=== PATIENT | female | born 1960 | race Caucasian/White ===

== ENCOUNTER 2023-07-20 18:38 | Inpatient (IN) | payer OTHER, SELFPAY ==
[2023-07-20] VITALS (8 sets, daily range): BP systolic 156–194; BP diastolic 70–97; BMI 21.5; BMI 20.9
[2023-07-20 13:57] LABS: % Basophils 0.4 % (0-2); % Eosinophils 0.1 % (0-6); % Immature Granulocytes 0.3 % (0-0.5); % Lymphocytes 9.1 % (20.5-51.1); % Monocytes 1.2 % (1.7-9.3); % Neutrophils 88.9 % (42.2-75.2); Absolute Monocytes 0.1 10^3/uL (0.1-0.6); Absolute Neutrophils 9.9 10^3/uL (1.4-6.5); Hematocrit 38.5 % (37.0-47.0); Hemoglobin 13.3 g/dL (12.0-16.0); Mean Corp Hgb Conc. 34.5 g/dL (33.0-37.0); Mean Corpuscular Hgb 30.3 pg (27.0-31.0); Mean Corpuscular Volume 87.7 fL (81.0-99.0); Mean Platelet Volume 11.4 fL (7.4-10.4); Nucleated Red Blood Cells % 0 %; Platelet Count 226 10^3/uL (130-400); Red Blood Cell Count 4.39 10^6/uL (4.20-5.40); Red Cell Dist. Width 11.8 % (11.5-14.5); White Blood Cell Count 11.2 10^3/uL (4.8-10.8)
--- NOTE | 2023-07-20 14:09 | ED.GENMED ---
History of Present Illness
General
Chief Complaint: Abdominal Pain
Source: patient and family
Time Seen by Provider: 07/20/23 13:57
Travel History
Have you had any contact with someone who has COVID-19?: No
Do you have any symptoms of coronavirus? Fever > 100 degrees, chills, cough, shortness of breath, sore throat, loss of taste or smell, muscle aches, or headache?: No
History of Present Illness
History of Present Illness:
62-year-old female with past medical history of hypertension, hypothyroidism, bipolar disorder and anxiety presenting to the emergency department for evaluation with EMS for abdominal pain, persistent nausea and vomiting that all started yesterday.
Sister who is present with the patient states that yesterday patient had been having persistent nausea and vomiting as well but that in the evening time symptoms seem to have subsided. Upon calling her this morning the patient noted to his sister
that she barely slept overnight due to the persistent nausea and had resumed vomiting again. Due to the symptoms the patient's sister contacted EMS to bring to the ER. On arrival here patient is still noting the persistent nausea and vomiting but
is otherwise denying any other pain. No reported fevers, chills, rigors, known sick contacts, recent travel or recent antibiotics. Patient denies any alcohol or drug abuse (history of previous drug abuse noted) family history was otherwise
noncontributory.
Past History
Past History
ED Past Medical History: HTN, Hypothyroidism, Psychiatric (anxiety) and Other (urinary incontinence)
ED Past Surgical History: Cholecystectomy; Negative Cardiac
Social History
Tobacco: Non-smoker
Alcohol: None
Drug: None
Personal: Single
Living: alone (family near by that can help)
Employment: Employed
Family History
Family History: Other (Noncontributory)
Review of Systems
Review of Systems
All Other Systems: ROS reviewed and negative except as documented in HPI and ROS
Phy Exam
Physical Exam
Physical Exam:
GENERAL: Alert , laying comfortably on initial presentation however upon speaking to patient she would start to moan and cry but was easily redirectable
EYE: clear conjunctiva b/l
HEAD: NCAT
ENT: o/p clr, mmm.
CARDIAC: Regular rate and rhythm .
LUNGS: Clear breath sounds bilaterally, no acute respiratory distress, no wheezes/rales/rhonchi
ABDOMEN: Soft, without focal tenderness, no r/g, no cvat
NEUROLOGICAL: Alert and oriented to self and place but not year
SKIN: Warm and dry, skin intact. Older appearing ecchymosis to the left forearm which patient is unable to tell me as to how he obtained this
MUSCULOSKELETAL: No edema, well perfused.
PSYCH: Odd affect, answers most questions appropriately
Scores
Heart Failure Risk
Heart Failure Risk Score: Not Applicable
Heart Score for Chest Pain Patients
STEMI patient?: Not applicable
Withdrawal Assessment of Alcohol
Withdrawal Assessment Completed?: Not applicable
Course
Orders/Labs/Results
Orders:
Orders
07/20/23 13:05
Electrocardiogram (*1) Urgent
Reason for Study: Abdominal Pain
07/20/23 13:06
EKG- Treatment ONCE
07/20/23 13:11
Complete Blood Count/With Diff Urgent
Comprehensive Metabolic Panel Urgent
Glycohemoglobin (HgbA1c) Urgent
Lipase Urgent
Magnesium Urgent
07/20/23 14:04
CT Head W/o Iv Contrast Urgent
Comment:
Reason For Exam: vomiting, change in mental status
0.9% Sodium Chloride 1000 ml [Nss] 1,000 ml IV BOLUS
Ondansetron Injectable [Zofran] 4 mg IV NOW STA
07/20/23 14:14
Alcohol Urgent
Troponin I Urgent
07/20/23 Dinner
Clear Liquid
At Your Request: Full Participation
Does patient need a safe tray?: No
07/20/23 16:27
Troponin I Urgent
07/20/23 17:07
Electrocardiogram (*1) Urgent
Reason for Study: Other
Other Reason for Exam: elevated trop
EKG- Treatment ONCE
07/20/23 17:09
Potassium Chloride [KCl] 20 meq PO NOW STA
07/20/23 17:11
Ondansetron Injectable [Zofran] 4 mg IV NOW STA
Trimethobenzamide [Tigan] 200 mg IM NOW STA
07/20/23 17:23
CR Abdomen - 1 View Urgent
Comment:
Reason For Exam: vomiting
07/20/23 17:50
Aspirin 300 mg RECTAL NOW STA
07/20/23 18:04
Fentanyl, Urine Urgent
Urinalysis Reflex To Culture Urgent
Date Specimen was Collected: 07/20/23
Time Specimen was Collected: 18:03
Urine Drug Abuse Screen Urgent
Date Specimen was Collected: 07/20/23
Time Specimen was Collected: 18:03
Urine Microscopic Reflex Cult Urgent
07/20/23 18:16
Admit/Transfer Patient As Directed
Co-Sign Provider:
Level of Care: Inpatient admission
Assign to:: Telemetry
Physician / Group: Hospitalist
Diagnosis: Elevated troponin, vomiting
Reason for Telemetry: Chest Pain syndromes
Date to Stop Telemetry: 07/22/23
Time to Stop Telemetry: 11:00
Reason for Hospitalization: Elevated troponin, vomiting
Expected length of stay greater than two midnights?: Yes
ELOS- Estimated Length of Stay in days: 3
I certify the patient meets the requirements for IP care: Yes
07/20/23 18:17
Code Status As Directed
Resuscitation Status: Full Code
07/20/23 21:54
0.9% Sodium Chloride 1000 ml [Nss] 1,000 ml IV 125 mls/hr
Potassium Chloride Powder [Klor-Con] 20 meq PO BID
07/20/23 21:54
Activity As Directed
Activity Level: As Tolerated
INT (Intravenous Needle Therapy) As Directed
Comment: maintain peripheral IV access
Intake/ Output As Directed
Frequency: Per unit guidelines
Pneumatic Compression Sleeves As Directed
Type: Knee high
Vital Signs As Directed
Frequency: q4h
Weight As Directed
Frequency: Daily
DX Deep Vein Thrombosis Video Routine
07/20/23 23:38
Troponin I Q3H
Comment: at admit & Q3H for 3 total including ED draws, obtain ECG with each level
07/21/23 00:54
Troponin I Q3H
Comment: at admit & Q3H for 3 total including ED draws, obtain ECG with each level
07/21/23 03:54
Electrocardiogram (*1) Q6H
Reason for Study: Chest Pain
Comment: at admission and Q3H for total of 3, to be done with each troponin
07/21/23 04:23
Basic Metabolic Panel IN AM
Complete Blood Count/No Diff IN AM
Magnesium IN AM
Troponin I Q3H
Comment: at admit & Q3H for 3 total including ED draws, obtain ECG with each level
07/21/23 09:54
Electrocardiogram (*1) Q6H
Reason for Study: Chest Pain
Comment: at admission and Q3H for total of 3, to be done with each troponin
07/22/23 11:00
DC Protocol for Telemetry ONCE
Abnormal Lab Results
07/20/23 07/20/23 07/20/23
13:11 16:27 18:04
WBC 11.2 H 10^3/uL
(4.8-10.8)
MPV 11.4 H fL
(7.4-10.4)
Absolute Neuts (auto) 9.9 H 10^3/uL
(1.4-6.5)
Absolute Lymphs (auto) 1.0 L 10^3/uL
(1.2-3.4)
Neutrophils % 88.9 H %
(42.2-75.2)
Lymphocytes % 9.1 L %
(20.5-51.1)
Monocytes % 1.2 L %
(1.7-9.3)
Potassium 3.3 L mmol/L
(3.5-5.1)
Glucose 119 H mg/dl
(70-99)
Magnesium 1.3 L mg/dl
(1.6-2.3)
AST 42 H U/L
(14-36)
Troponin I 0.041 H* ng/ml
Urine Ketones 3+ A
(Negative)
Ur Occult Blood Reflex Trace A
(Negative)
Leukocyte Esterase Rfl Trace A
(Negative)
Urine Albumin (Reflex) 2+ A
(Neg - Trace)
Urine Methadone Screen Positive H
(Negative)
U Marijuana (THC) Screen Positive H
(Negative)
07/20/23 13:11
07/20/23 13:11
Vital Signs
Initial and Last Documented VS:
Initial Vital Signs
Temp Pulse Resp BP Pulse Ox
99.0 F 70 21 194/82 95
07/20/23 12:57 07/20/23 12:57 07/20/23 12:57 07/20/23 12:57 07/20/23 12:57
Last Documented Vital Signs
Temp Pulse Resp BP Pulse Ox
99.9 F 92 22 220/99 95
07/21/23 07:54 07/21/23 08:15 07/21/23 07:54 07/21/23 07:59 07/21/23 07:56
MDM/Problems Addressed
Differential Diagnosis Includes:
Gastroenteritis, GERD/gastritis, viral syndrome, given odd behavior possible intracranial bleeding although this is less likely, atypical ACS presentation, alcohol/drug abuse/withdrawal
MDM/Problems Addressed:
62-year-old female presenting to the emergency department for evaluation of persistent nausea and vomiting over the last 24 hours. Sister who is at bedside is stating patient's behavior is very abnormal for her and notes that she does seem
intermittently confused and is normally not acting as she is presently. Patient does seem to have a slightly histrionic affect at times but is easily redirectable. She will intermittently cry out but it is unclear as to what she is ultimately
either upset over or if she is in any pain. Labs have been initiated in triage and will add on additional tests including troponin, alcohol, urinalysis, UDS and a CT of the head. Zofran 4 mg IV ordered for symptomatic control. Reassessment and
disposition following.
Chronic conditions affecting care: Psychiatric illness
*Radiology
Radiology exam reviewed: radiology read reviewed
*Pulse Oximetry
Patient hypoxic: no
*EKG
Interpreted by ED Provider?: Yes
Comparison EKG: no comparison EKG present
Heart Rate: 76
Rate: normal
Rhythm: sinus and PVC's
Interval: long QT
*[employer] Interpretation
Rate: normal
Rhythm: sinus and PVC's
*Critical Care Note
Total Time (30-74mins, 75-104mins- exclusive of procedures): Not Applicable
Comment
Comment:
On reevaluations patient is continuously sleeping. When she is awoken she has various complaints including sensation of her eyes burning and still generally feeling unwell. Given the patient's nonnegative troponin we are repeating this. Will also
attempt a p.o. trial. Patient's other labs and imaging is otherwise largely unremarkable.
Patient Management
Discussion with other providers: Hospitalist
Escalation/DeEscalation of care consider admission/obs:
Patient's repeat troponin is upward trending and now 0.041. I went to go reevaluate patient and she started having further episodes of vomitus. Second EKG ordered. Despite her borderline prolonged QT interval we will treat with a second dose of
Zofran. Will closely monitor patient's QT and keep her on telemetry. Hospitalist team is aware and accepts for continued evaluation and treatment.
ED Attending Note
-
Portions of this chart may have been created with voice recognition software.� Occasional wrong word or��sound alike� substitutions may have occurred due to the inherent limitations of voice recognition software.
Discharge Plan
Departure
Patient Disposition: Admit
Date of Disposition: 07/20/23
Time of Disposition: 17:09
Presentation/result/management discussed w/ accepting MD/DO: Hospitalist
Discharge Problem:
Nausea and vomiting, Elevated troponin, Acute hypokalemia
Interventions
Interventions:
*Risk Screen - Suicide Last Done: 07/20/23 13:14
*General Assessment Last Done: 07/20/23 13:08
*Neglect/Abuse Screening Last Done: 07/20/23 13:14
ED- Fall Risk Assessment Last Done: 07/20/23 13:09
*ED COVID-19 Vaccine History Last Done: 07/20/23 21:55
*Nursing Disposition Last Done: 07/20/23 21:46
WI-Urexyw-Cyxpfhxzqd Assessment Last Done: 07/20/23 13:09
Discharge Date and Time
Discharge Date/Time: 07/20/23 21:47
[2023-07-20 14:12] LABS: ALT (SGPT) 16 U/L (0-35); AST (SGOT) 42 U/L (14-36); Albumin 4.6 g/dl (3.5-5.0); Alkaline Phosphatase 99 U/L (38-126); Blood Urea Nitrogen 15 mg/dl (7-17); Calcium 9.5 mg/dl (8.4-10.2); Carbon Dioxide 25 mmol/L (22-30); Chloride 98 mmol/L (98-107); Estimated Creatinine Clearance 77 ml/min; Glucose 119 mg/dl (70-99); Sodium 136 mmol/L (135-145); Total Bilirubin 0.5 mg/dl (0.2-1.3); Total Protein 7.6 g/dl (6.3-8.2); eGFR > 60.00
[2023-07-20] MEDS: NSS 1000 IV ×2 (14:19→22:59)
[2023-07-20] MEDS: ZOFRAN 4 MG IV ×3 (14:19→23:20)
[2023-07-20 14:25] LABS: Lipase 154 U/L (23-300); Potassium 3.3 mmol/L (3.5-5.1)
[2023-07-20 14:53] LABS: Alcohol None Detected
[2023-07-20 15:04] LABS: Troponin I 0.033 ng/ml
[2023-07-20 17:06] LABS: Troponin I 0.041 ng/ml
[2023-07-20] MEDS: KCL 20 MEQ PO (17:49)
[2023-07-20] MEDS: TIGAN 200 MG IM (17:50)
--- NOTE | 2023-07-20 18:01 | HPS.HSE ---
Family Physician
-
Family Physician: Aguila Mckeon
Chief Complaint
-
Nausea and vomiting
History of Present Illness
62-year-old woman with past medical history of:
hypertension,
hypothyroidism,
bipolar disorder
anxiety
comes in with abdominal pain, persistent nausea and vomiting that started yesterday. Sister reports that yesterday the patient had been having persistent nausea and vomiting as well but that in the evening the symptoms improved. The patient barely
slept overnight due to the persistent nausea and had resumed vomiting again today. Sister contacted EMS to bring patient to the ER. On arrival here patient reports the persistent nausea and vomiting but is otherwise denying any other pain. No
reported fevers, chills, rigors, known sick contacts, recent travel or recent antibiotics. Patient denies any alcohol or drug abuse. ER found elevated troponin. ECG abnormal.
Medical History
Past Medical History
Past Medical History: Reports Other
Additional Past Medical History:
Essential HTN,
Hypothyroidism,
anxiety
Bipolar disorder
urinary incontinence
Cholecystectomy
Past Surgical History: Reports Other
Additional Past Surgical History:
See above
Social History
Unable to obtain full social history at this time due to: Acuity
Alcohol: None
Drug: None
Personal: Single
Living: Alone
Family History
Family History: Not pertinent
Allergies / Home Medications
Allergies reflects when Allergies were last updated in [facility].
Home Medications with original date entered in [facility]
Allergy/Medication List:
Allergies
Allergy/AdvReac Type Severity Reaction Status Date / Time
NKA - No Known Allergies Allergy Unknown Uncoded 07/20/23 12:56
Home Medications (this list may not be accurate)
aluminum-mag hydroxide-simethicone 200 mg-200 mg-20 mg/5 mL oral susp (Mag-Al Plus) 30 ml PO QIDPRN PRN painful swallowing ##10 01/18/17
oxycodone-acetaminophen 5 mg-325 mg tablet 1 tab PO Q4HPRN PRN Pain #15 tabs 10/02/16
hydrocodone 5 mg-acetaminophen 325 mg tablet 1 tab PO Q4HPRN PRN pain #10 tabs 05/25/20
tramadol 50 mg tablet 50 mg PO Q6HPRN PRN severe pain #8 tabs 03/04/21
Review of Systems
-
History Source: Patient
A 12 point ROS was completed and negative except as noted: Yes
Physical Exam
Vital Signs
Vital Signs
Temp Pulse Resp BP Pulse Ox
99.0 F 71 16 157/82 98
07/20/23 12:57 07/20/23 17:00 07/20/23 17:00 07/20/23 17:00 07/20/23 15:38
Physical Exam
General: Well Developed, Well Nourished, Appears in Distress and Appears Chronically Ill
HEENT: Nose Appears Normal and Ears Appear Normal; No Good Dentition
Respiratory: Clear
Cardiac: S1/S2 and Regular Rhythm
GI: Soft, Non Distended and Tender
Musculoskeletal: No Clubbing, No Cyanosis and No Edema
Skin: Warm and Dry; No Rash
Neuro: Awake, Alert and Oriented
Psych: Anxious
Laboratory Results
-
07/20/23 13:11
07/20/23 13:11
Laboratory Results
Total Bilirubin 0.5 mg/dl (0.2-1.3) 07/20/23 13:11
AST 42 U/L (14-36) H 07/20/23 13:11
ALT 16 U/L (0-35) 07/20/23 13:11
Alkaline Phosphatase 99 U/L (38-126) 07/20/23 13:11
Troponin I 0.041 ng/ml H* 07/20/23 16:27
Lipase 154 U/L (23-300) 07/20/23 13:11
Data Reviewed
-
Lab Data: Labs Reviewed by me
Impression/Plan
-
IMPRESSION:
62 woman with nausea, vomiting, and elevated troponin (0.41). ECG shows:
SINUS RHYTHM WITH FREQUENT PREMATURE VENTRICULAR COMPLEXES IN A PATTERN OF BIGEMINY
MINIMAL VOLTAGE CRITERIA FOR LVH, MAY BE NORMAL VARIANT ( Sokolow-Lujan )
NONSPECIFIC ST AND T WAVE ABNORMALITY
PROLONGED QT
ABNORMAL ECG
WHEN COMPARED WITH ECG OF 05-MAR-2001 07:59, SIGNIFICANT CHANGES HAVE OCCURRED
PLAN:
1. Elevated troponin with abnormal ECG. No chest pain. Vitals WNL
This may be from stress of illness, less likely to be ACS
ASA in ED
Tele
Cycle troponin
Cardiology consult if troponin continues to go up
2. Low K, likely from GI loss
Replete K
Check mag
Recheck both in am
3. Elevated WBC, 11.2 - likely from whatever is causing GI process
Follow
No indication for antibiotics at this time
4. Nausea and vomiting - may be viral
Check abd xr
Clear liquid diet - then advance as tolerated
Do med rec before adding zofran
5. Med list not available - work on getting med list
Full code
VCD for DVTp
[2023-07-20 18:20] LABS: Urine Albumin 2+ (Neg - Trace); Urine Bilirubin Negative (Negative); Urine Character Clear (Clear); Urine Color Straw; Urine Glucose Negative (Negative); Urine Ketone 3+ (Negative); Urine Leukocyte Trace (Negative); Urine Nitrite Negative (Negative); Urine Occult Blood Trace (Negative); Urine Specific Gravity 1.015 (<1.030); Urine Urobilinogen Negative (Neg - 1+)
[2023-07-20 18:32] LABS: Urine Red Blood Cell 0-2 /HPF (0-2); Urine White Cell 0-2 /HPF (0-5)
[2023-07-20 18:34] LABS: Amphetamines Negative (Negative); Barbiturates Negative (Negative); Benzodiazepines Negative (Negative); Buprenorphine Negative (Negative); Cocaine Negative (Negative); Methadone Positive (Negative); Methamphetamines Negative (Negative); Opiates Negative (Negative)
[2023-07-20] MEDS: ASPIRIN 300 MG RECTAL (18:34)
[2023-07-20 18:35] LABS: Marijuana Positive (Negative); Phencyclidine Negative (Negative); Tricyclic Antidepressants Negative (Negative)
--- NOTE | 2023-07-20 18:56 | PHANOTE ---
med rec note called sister on file, patient not answer question at this time. sister did mention patient goes to a methadone clinic but does not know the name of it. ecw show patient on methadone 10mg q8h but no pdmp record of it being filled.
medication on list from pharmacy only. waiting sister arrival
[2023-07-20 19:09] LABS: Fentanyl, Urine Negative (Negative)
--- NOTE | 2023-07-20 22:26 | PTCARENOTE ---
Received patient from the ED. Patient restless, impulsive, yelling out periodically, 'help me'. She leaned out of bed and vomited on the floor. She is AO x3, anxious, unkempt, pale. Placed on telemetry NSR. IVF started. Abdomen is soft and
non-tender. Bed alarm placed because she states she falls at home and is unsteady on her feet. Lights dimmed, call alcocer in reach
[2023-07-20 22:33] LABS: Magnesium 1.3 mg/dl (1.6-2.3)
[2023-07-20] MEDS: MAGNESIUM SULFATE 100 IV (23:19)
[2023-07-20] MEDS: KLOR-CON 20 MEQ PO (23:25)
--- NOTE | 2023-07-21 00:12 | PTCARENOTE ---
Patient more comfortable at rest. Zofran given. IV magnesium replaced. Voided in the bathroom earlier assisted. Temperature 100.6 orally, refused Tylenol. Bed alarm is audible, call alcocer in reach
[2023-07-21 00:30] LABS: Troponin I 0.052 ng/ml
[2023-07-21] MEDS: XANAX 0.25 MG PO (00:56)
--- NOTE | 2023-07-21 01:01 | PTCARENOTE ---
Patient yelling out, leaning out of the bed. 'I just want it to stop', very anxious. Order received for Xanax, given.
[2023-07-21] MEDS: NSS 1000 IV ×2 (04:06→17:32)
[2023-07-21] MEDS: BENTYL 20 MG PO (04:11)
--- NOTE | 2023-07-21 04:27 | PTCARENOTE ---
Patient uncooperative with vitals. Thrashing herself in bed, moaning, yelling out 'OH god help me'. Complaining of abdominal cramping and nausea, dry heaving with some occasional yellow mucous. Assisted to the bathroom to void and Bentyl given. Was
able to collected labs and now appears to be sleeping.
[2023-07-21 04:39] LABS: Hemoglobin 12.7 g/dL (12.0-16.0); Mean Corp Hgb Conc. 35.3 g/dL (33.0-37.0); Mean Corpuscular Hgb 30.1 pg (27.0-31.0); Mean Corpuscular Volume 85.3 fL (81.0-99.0); Mean Platelet Volume 10.9 fL (7.4-10.4); Platelet Count 214 10^3/uL (130-400); Red Blood Cell Count 4.22 10^6/uL (4.20-5.40); Red Cell Dist. Width 11.9 % (11.5-14.5); White Blood Cell Count 9.2 10^3/uL (4.8-10.8)
[2023-07-21 05:05] LABS: Blood Urea Nitrogen 18 mg/dl (7-17); Calcium 9.7 mg/dl (8.4-10.2); Carbon Dioxide 21 mmol/L (22-30); Chloride 98 mmol/L (98-107); Estimated Creatinine Clearance 77 ml/min; Glucose 121 mg/dl (70-99); Magnesium 1.8 mg/dl (1.6-2.3); Potassium 3.2 mmol/L (3.5-5.1); Sodium 136 mmol/L (135-145); eGFR > 60.00
[2023-07-21 05:06] LABS: Troponin I 0.056 ng/ml
[2023-07-21 06:18] VITALS: BP 169/72
[2023-07-21] MEDS: ZOFRAN 4 MG IV (06:41)
--- NOTE | 2023-07-21 06:43 | W.PN.UPDATE ---
Update Note
Progress Note Update
Patient noted overnight to be somewhat agitated...thrashing around in bed. Ongoing c/o abdominal pain. She has hx of IBS and also bipolar disorder hx plus takes methadone. Will ask psychiatry to evaluate.
[2023-07-21 07:59] VITALS: BP 220/99
[2023-07-21 08:46] LABS: Glycohemoglobin (HgbA1c) 4.9 % (4.0-5.6)
[2023-07-21] MEDS: KLOR-CON PO (09:08)
--- NOTE | 2023-07-21 09:23 | PTCARENOTE ---
Assumed care of pt from night RN. Pt received awake oriented to self and place. VSS, AARON shows NSR with vent bigeminy, POX 95% on RA. Pt yelling out 'Help me, help me', but when asked what I can help with she asks for water. Frequently hanging
over side rail spitting into trash can. Bed alarm in place. NS infusing through right wrist at 125 ml/hr. Awaiting psych CX.
[2023-07-21 10:39] VITALS: BMI 20.9
--- NOTE | 2023-07-21 10:55 | CON.CAR ---
Addendum entered and electronically signed by Jerrell Jacobson MD 07/21/23 12:23:
62-year-old woman with history of opioid dependence on methadone admitted with abdominal pain nausea and vomiting. She is on sertraline 200 mg daily. She has received Zofran and has had PVCs with prolongation of her QT interval. Troponin is
detectable at 0.056. She is crying out in pain, calling for help as a result cardiology consultation is requested.
Outpatient meds: Wellbutrin, dicyclomine, gabapentin, Prevacid, Synthroid, lisinopril, methadone, Reglan, sertraline
Current meds: Potassium 40 mill equivalents twice daily, lisinopril 10 mg a day, Zofran as needed, dicyclomine as needed, patient has received 1 g of magnesium
PMH: Hypertension, hypothyroidism, chronic hepatitis C, opioid dependence, bipolar disorder,
PSH: Cholecystectomy
SH: No alcohol or tobacco, former intravenous heroin user, single, lives alone, sister is contact
Allergies: None
Family history: Noncontributory
ROS: Not obtainable due to ongoing distress
220/99, pulse 92, respiratory 22, afebrile, sats 99%
Marked distress, crying out in pain, calling for help, appears much older than stated age
Head and neck: Edentulous over mandible
Cachectic
Exam very limited, lungs grossly clear, predominantly regular rate and rhythm, abdominal exam very limited, no edema, neuro nonfocal, writhing in bed
ECG sinus rhythm, probable marked QT prolongation but difficult to assess given ventricular bigeminy
Telemetry: Marked QT prolongation
Hemoglobin 12.7, potassium 3.2, BUN and creatinine 18 and 0.7, magnesium was 1.3, now 1.8
Impression:
Prolonged QT with PVCs and high risk of torsades de pointes
Hypomagnesemia, hypokalemia, methadone, sertraline, Zofran
Abdominal pain nausea vomiting
Bipolar disorder
Hypertension
Hypothyroidism
Chronic hepatitis C
History of opioid dependence, on methadone
Plan:
She has a markedly prolonged QT interval related to electrolyte abnormalities and 3 different drugs. Methadone ideally would be continued, is currently on hold and it appears that she is withdrawing from narcotics possibly superimposed upon some
underlying abdominal pathology. Zofran and sertraline are likely contributing to QT prolongation.
At present she is at high risk for torsades de pointes pending improvement in her QT interval.
Would ask psychiatry if a non QT prolonging med can be substituted for sertraline.
Avoid Zofran or other antiemetics, as these would mostly prolong QT interval.
Follow QT interval, possibly eventual restart of methadone.
She has received magnesium IV, will give a second IV dose. Potassium is being supplemented.
Her hypertension is likely secondary to her acute illness. We may need to uptitrate her medications. Suspect that as her pain improves and if narcotic withdrawal can be avoided her blood pressure will improve.
Regarding her troponin, would not pursue aggressively at this time. We can consider an echo although at present I am not sure she could cooperate, and outpatient stress testing could also be considered, but suspect right now she has nonischemic
myocardial injury that is multifactorial and related to her clinical presentation.
Original Note:
Consultation
Consultation Request
Date/Time Consultation Requested: 07/21/2023
Date/Time Consultation Performed: 07/21/2023
Requesting Provider: Dr. Barajas
Performing Provider: Dr. Jacobson
Reason for Consultation: Elevated troponin
Medical History
-
History of Present Illness:
HPI: Antoinette is a 62 year old female with PMH of HTN, hypothyroidism, bipolar disorder, chronic hepatitis C, and prior opioid dependence on methadone. She presented to [facility] for evaluation of persistent abdominal pain, nausea, and vomiting. In ER,
she was treated with zofran. She was noted to be febrile with temp of 100.6F. Leukocytosis noted with WBC 11.2. Troponin checked and returned elevated, trending up to 0.056. She was also hypokalemic and started on supplementation. She has ongoing
abdominal pain and nausea. On EKG, she was noted to be in bigeminy. Cardiology consulted due to elevated troponin. She reports no significant cardiac history and is unsure if she has been seen by a allergy physician in the past. Denies any recent
cardiology evaluations.
PMH:
HTN
Hypothyroidism
Bipolar disorder
Chronic Hepatitis C
h/o opioid dependence, on methadone
Past Medical History
Past Medical History: Other (In HPI)
Social History
Tobacco: Non-Smoker
Alcohol: None
Drug: Former User
Family History
Family History: Reviewed & Not Pertinent
Allergies / Home Medications
Allergy/AdvReac Type Severity Reaction Status Date / Time
NKA - No Known Allergies Allergy Unknown Uncoded 07/20/23 12:56
�Medication �Instructions �Recorded �Confirmed �Type
[facility]adone [facility] 345 mg PO DAILY 07/20/23 07/20/23 History
bupropion HCl 300 mg 24 hr tablet, 300 mg PO DAILY 07/20/23 07/20/23 History
extended release (Wellbutrin XL)
dicyclomine 10 mg capsule 20 mg PO QIDPRN PRN spasms 07/20/23 07/20/23 History
gabapentin 400 mg capsule 800 mg PO TID 07/20/23 07/20/23 History
lansoprazole 30 mg capsule,delayed 30 mg PO DAILY 07/20/23 07/20/23 History
release
levothyroxine 75 mcg tablet 75 mcg PO DAILY 07/20/23 07/20/23 History
(Synthroid)
lisinopril 10 mg tablet 10 mg PO DAILY 07/20/23 07/20/23 History
metoclopramide HCl 10 mg tablet 10 mg PO DAILYPRN PRN gerd 07/20/23 07/20/23 History
sertraline 100 mg tablet 200 mg PO DAILY 07/20/23 07/20/23 History
Review of Systems
-
History Source: Patient
All other systems: Negative unless noted
Physical Exam
Vital Signs
Temp Pulse Resp BP Pulse Ox
99.9 F 92 22 220/99 95
07/21/23 07:54 07/21/23 08:15 07/21/23 07:54 07/21/23 07:59 07/21/23 09:17
Lab Results
07/21/23 04:23
07/21/23 04:23
Troponin I 0.056 ng/ml H* 07/21/23 04:23
Physical Exam
General: Well Developed and Well Nourished
HEENT: Normocephalic, Anicteric and Moist Mucous Membranes
Respiratory: Non Labored Respirations
Cardiac: Regular Rhythm
Musculoskeletal: No Clubbing, No Cyanosis and No Edema
Skin: Warm and Dry
Neuro: Awake, Alert and Nonfocal/Grossly Intact
Impression / Plan
-
PCP: Dr. Mckeon
Metabolic Specialist: None, initially seen by Dr. Jacobson
Impression:
Presented with nausea/vomiting
Hypokalemia
Frequent PVC's/bigeminy
Elevated troponin
HTN
Hypothyroidism
Bipolar disorder
Chronic Hepatitis C
h/o opioid dependence, on methadone
Plan:
-Presented with nausea and vomiting. Low grade fever and leukocytosis noted in PM 07/19. Continue management per primary service.
-Hypokalemia noted with K 3.2 in the setting of vomiting. Agree w/ repletion. Mag improved to 1.8 following repletion overnight.
-Continue to follow K and mag closely. Check TSH
-Frequent PVCs noted overnight in the setting of electrolyte disturbance. Improved this AM.
-Follow QTc on EKG closely. Pt. given 4mg IV Zofran x3 so far this admission. Will repeat EKG this AM.
-Agitation noted by nursing overnight. Psych eval pending. Would limit/reduce QT prolonging medications.
-Elevated troponin noted, trending up to 0.056. Suspect nonischemic myocardial injury in the setting of nausea/vomiting and uncontrolled HTN.
-BP elevated by most recent check. On lisinopril 10mg daily as OP. Continue.
-Would consider checking echo once less agitated and once abdominal pain improved.
HPI: Antoinette is a 62 year old female with PMH of HTN, hypothyroidism, bipolar disorder, chronic hepatitis C, and prior opioid dependence on methadone. She presented to [facility] for evaluation of persistent abdominal pain, nausea, and vomiting. In ER,
she was treated with zofran. She was noted to be febrile with temp of 100.6F. Leukocytosis noted with WBC 11.2. Troponin checked and returned elevated, trending up to 0.056. She was also hypokalemic and started on supplementation. She has ongoing
abdominal pain and nausea. On EKG, she was noted to be in bigeminy. Cardiology consulted due to elevated troponin. She reports no significant cardiac history and is unsure if she has been seen by a allergy physician in the past. Denies any recent
cardiology evaluations.
Data Reviewed
-
EKG: Tracing Personally Visualized and interpreted
Radiology: Report Reviewed by me
CT Scan: Report Reviewed by me
Labs: Labs Reviewed by me
Old Records: Reviewed
[2023-07-21 12:15] VITALS: BP 165/100
--- NOTE | 2023-07-21 12:26 | W.PN.HOSP.TC ---
Today's Communication/Plan
-
see plan
Assessment / Plan
Assessment / Plan
IMPRESSION:
62 woman with nausea, vomiting, and elevated troponin (0.41). ECG shows:
SINUS RHYTHM WITH FREQUENT PREMATURE VENTRICULAR COMPLEXES IN A PATTERN OF BIGEMINY
MINIMAL VOLTAGE CRITERIA FOR LVH, MAY BE NORMAL VARIANT ( Sokolow-Lujan )
NONSPECIFIC ST AND T WAVE ABNORMALITY
PROLONGED QT
ABNORMAL ECG
WHEN COMPARED WITH ECG OF 05-MAR-2001 07:59, SIGNIFICANT CHANGES HAVE OCCURRED
PLAN:
1. Non KS trop elevation. No chest pain. Vitals WNL
This may be from stress of illness, abd pain.
ASA in ED
Tele
Cycle troponin
Cardiology following
Bigeminy - cont electrolyte repletions
cards following
may eventually get echo when abd pain imrpoves
2. hypokalemia likely from GI loss
replete K and follow mag and replete as needed
3. Elevated WBC, 11.2 - likely from whatever is causing GI process
Follow
No indication for antibiotics at this time
4. Nausea and vomiting - may be viral
abd xr = non obstructive pattern
Clear liquid diet - then advance as tolerated
PRN tigan
Agitation
Psych consulted.
5. Med list not available - work on getting med list
Full code
VCD for DVTp
Anticipated Discharge: 24 - 48 hours
Subjective/Interval History
-
Date of Service: July 21, 2023
pt seen
episodes of agitation noted
pt reports abd discomfort
Objective Data
-
Labs:
Laboratory Results
07/21/23
04:23
WBC 9.2
Hgb 12.7
Hct 36.0 L
Plt Count 214
Sodium 136
Potassium 3.2 L
Chloride 98
Carbon Dioxide 21 L
BUN 18 H
Creatinine 0.7
Glucose 121 H
Calcium 9.7
Vital Signs:
Vital Signs
Temp Pulse Resp BP Pulse Ox
99.9 F 92 22 220/99 95
07/21/23 07:54 07/21/23 08:15 07/21/23 07:54 07/21/23 07:59 07/21/23 09:17
I&O
07/20/23 07/21/23 07/22/23
06:59 06:59 06:59
Intake Total 2029 / 2029
Output Total 800 / 800 300 / 300
Balance 1230 / 1230 -300 / -300
Review of Systems
-
History Source: Patient
All other systems: Reviewed and negative
Physical Exam
-
General: Well Developed and No Apparent Distress
HEENT: Normocephalic, Atraumatic and Moist Mucous Membranes
Respiratory: Clear to Auscultation
Cardiac: Regular Rhythm and S1/S2; Negative Murmur, Rub or Gallop
GI: Soft, Nontender, Nondistended and Normal Bowel Sounds; Negative Organomegaly
Rectal: Deferred by Provider
Musculoskeletal: No Clubbing, No Cyanosis and No Edema
Skin: Negative Rash
Neuro: Nonfocal/Grossly Intact
Data Reviewed
-
Diagnostic Radiology: Report Reviewed by me
[2023-07-21] MEDS: ZESTRIL 10 MG PO (12:43)
[2023-07-21] MEDS: MAGNESIUM SULFATE 102 GRAMS IV (12:49)
--- NOTE | 2023-07-21 13:00 | PTCARENOTE ---
Sandor infusing as per MAR.
[2023-07-21 13:22] LABS: Troponin I 0.063 ng/ml
--- NOTE | 2023-07-21 13:47 | CS.PSYCHR ---
Consult Summary - Psychiatry
-
Pt is 62 yo female admitted with persistent nausea and vomitingin with abdominal pain, persistent nausea and vomiting that started yesterday. Pt barely slept the night prior to admission; sister contacted EMS to bring patient to the ER. Pt found
to have mildly elevated troponin, bigeminy on EKG. Psychiatry asked to evaluate due to some agitation, hx of mood disorder, also reportedly on Methadone maintenance tx. On approach, pt leaning between bed rails, gagging over trash can. Pt
complains of persistent nausea, states she is feels too much discomfort to think and answer questions about her history. She reports being on Methadone maintenance for years, get Rx [facility] in [place]. Pt endorsed being on Zoloft,
Gabapentin, Wellbutrin XL. Nursing reports pt being given Zofran with little relief. Checked with pharmacy, who was able to confirm pt received last dose of Methadone 345 mg from [facility] on 07/20/23, although unclear if pt able to keep meds down. Pt
states she has been 'sick' for aboaut 3 months. UDS was positive for Methadone and THC on admission.
Psych Hx: Unable to obtain full hx. Pt followed at [facility] on Methadone Maint for years, reported dose 345 mg QD
Pt noted to be on Zoloft 200 mg QD, Gabapentin 800 mg TID, Wellbutrin XL 300 mg AM
SH: unable to obtain
MSE: alert, leaning over trash can, gagging/heaving. Making intermittent eye contact. Speech coherent, thought clear; no signs of psychosis. No signs of esperanza. Mood mildly dysphoric. Insight appears fair
Imp: Unspecified mood/depressive d/o, appears stable. Persistent N/V, cause unclear, possibly related to MJ use
Opioid dependence, on Methadone maintenance tx
Rec: hold off psychotropic medications for now- Sertraline could contribute to N/V. Meds/doses can be reassessed in Outpatient treatment
would consider methadone maintenance at lower dose due to prolonged QTc; holding off completely will eventually increase nausea
Pt does not show any signs of acute psychiatric d/o; she appears stable to return to outpatient follow-up when medically cleared
[2023-07-21] MEDS: TORADOL 30 MG IV (15:46)
--- NOTE | 2023-07-21 15:50 | PTCARENOTE ---
Toradol 30 mg given IV as per JUN for 12/29 pain.
--- NOTE | 2023-07-21 16:02 | CM ---
Reviewed chart. Met with Miss Bowman to review discharge plans. She states prior to admission she resides alone in an apartment with twelve steps to enter. She states prior to admission she was independent with ambulation and adls. She states she
does not have any DME in the home. She states she has a prescription plan. She states she gets her methadone at [facility] , ([phone]) She states a friend drives her to get her methadone. Will contact [facility] to see what we need to do when she is
ready for discharge to resume her methadone. Will need to see her current functional status to see if she will have any skilled care needs. Medial work-up in progress. The discharge plan is to return home with her outpatient Meth[facility]one Clinic when
medically stable.
[2023-07-21 20:32] VITALS: BP 212/86
[2023-07-21] MEDS: KLOR-CON 40 MEQ PO (20:40)
--- NOTE | 2023-07-21 21:19 | PTCARENOTE ---
Pt rec'd at change of shift with sister at pt's bedside. Pt was extremely agitated at times screaming out, rocking in bed then conversive.
After pt's sister left pt restful for short time then started calling out. Pt is conversive when kept on topic. Alert and oriented to her surroundings , date and time. Upon assessment pt's lungs clear, no cough. sinus on telemetry with freq pvc's.
Pt goes from having a conversation to rocking in bed. B/P elevated, retaken 3 x's with systolic b/p 200's. Attempted several times to get pt to take po potassium but pt refused; gaging, tolerating po ice chips only minimal amts. At present pt
reported feeling comforted knowing nurse would sit by her bedside while she rested. With nurse at bedside pt laid down and is resting with eyes closed. rsp even and unlabored.
[2023-07-21 22:35] VITALS: BP 228/73
--- NOTE | 2023-07-21 23:25 | PTCARENOTE ---
Pt assisted to bathroom to void missed collection hat but passed a large amt of yellow urine in toilet. back to bed at present. Just before getting up pt found putting several fingers down her throat. Pt did not bring anything up and encouraged to
not do that. nursing sitting at bedside at this time.
--- NOTE | 2023-07-21 23:59 | PTCARENOTE ---
When pt is resting with eyes closed ht rate in 40's sinus
[2023-07-22] VITALS (12 sets, daily range): BP systolic 164–222; BP diastolic 85–123; BMI 20.7
[2023-07-22] MEDS: BENTYL 20 MG PO ×2 (00:19→04:53)
--- NOTE | 2023-07-22 00:33 | PTCARENOTE ---
Just after mn Pt became very agitated and started rocking back and forth repeating nonsensical words while trying to lean head first oob. When asked if pt was having belly pain pt said yes, Bentyl given. After about 5 min of Bentyl in her system pt
attempted to stick fingers down her throat, pt stopped by nursing. Pt then starting calling for her mother 'my Mommy' Emotional support given by 2 nurses. After aprox 10 min pt was assisted to lying position in bed with nursing remaining at pts
bedside. pt with eyes closed and rsp even and unlabored. Sinus jaiedn on telemetry
[2023-07-22] MEDS: NSS IV (01:51)
[2023-07-22] MEDS: NSS 1000 IV ×3 (01:51→15:35)
[2023-07-22 02:12] LABS: % Basophils 0.1 % (0-2); % Immature Granulocytes 0.4 % (0-0.5); % Lymphocytes 8.9 % (20.5-51.1); % Monocytes 5.5 % (1.7-9.3); % Neutrophils 85.1 % (42.2-75.2); Absolute Immature Granulocytes 0.1 10^3/uL (0-0.05); Absolute Lymphocytes 1.2 10^3/uL (1.2-3.4); Absolute Monocytes 0.7 10^3/uL (0.1-0.6); Absolute Neutrophils 11.4 10^3/uL (1.4-6.5); Hematocrit 34.1 % (37.0-47.0); Hemoglobin 12.7 g/dL (12.0-16.0); Mean Corp Hgb Conc. 37.2 g/dL (33.0-37.0); Mean Corpuscular Hgb 30.2 pg (27.0-31.0); Mean Corpuscular Volume 81.2 fL (81.0-99.0); Mean Platelet Volume 10.3 fL (7.4-10.4); Nucleated Red Blood Cells % 0 %; Platelet Count 238 10^3/uL (130-400); White Blood Cell Count 13.3 10^3/uL (4.8-10.8)
[2023-07-22 02:32] LABS: ALT (SGPT) 21 U/L (0-35); AST (SGOT) 52 U/L (14-36); Albumin 4.7 g/dl (3.5-5.0); Alkaline Phosphatase 86 U/L (38-126); Blood Urea Nitrogen 22 mg/dl (7-17); Calcium 9.5 mg/dl (8.4-10.2); Carbon Dioxide 19 mmol/L (22-30); Chloride 102 mmol/L (98-107); Estimated Creatinine Clearance 77 ml/min; Glucose 114 mg/dl (70-99); Magnesium 1.7 mg/dl (1.6-2.3); Potassium 2.5 mmol/L (3.5-5.1); Sodium 136 mmol/L (135-145); Total Bilirubin 0.7 mg/dl (0.2-1.3); Total Protein 7.7 g/dl (6.3-8.2); eGFR > 60.00
--- NOTE | 2023-07-22 03:14 | PTCARENOTE ---
new iv site placed in RFA and am labs drawn via peripheral stick. K+ low. House TRANSCRIBING MACHINE MECHANIC notified. Pt refused powdered po K last night, refused k dur in applesauce-gagging. IV Potassium ordered, awaiting med from pharmacy. Pt currently in bed. Pt stood up
at approx 0100 and quickly laid herself on the floor. staff at bedside when she did this. Attempts made at placing pt in kelley chair but pt became more agitated. In bed at present with nursing at bedside. exit bed alarm remains activated.
[2023-07-22] MEDS: KCL 270 MEQ IV ×3 (03:38→12:53)
--- NOTE | 2023-07-22 04:06 | PTCARENOTE ---
Unable to get good b/p due to pts flailing in bed and rocking while on side of bed. Pt continually asking for something cold but pt gags after atking just an ice chip
--- NOTE | 2023-07-22 05:08 | PTCARENOTE ---
Pt remains a 1:1 screaming out making repetitive nonsensical words and rocking at bedside. begging for something cold but after 2 ice chips pt gags and tries to throw up. bentyl given. Pt also freq calling out for her mother.
--- NOTE | 2023-07-22 06:39 | W.PN.UPDATE ---
Update Note
Progress Note Update
Patient overnight found to have climbed oob and laid on the floor...Desire chair utilized for comfort and safety. She also began screaming when attempts made to give her po medication. Vomited x1. Not easily redirectable.
[2023-07-22] MEDS: KLOR-CON PO ×2 (07:59→19:37)
[2023-07-22] MEDS: TORADOL 30 MG IV ×2 (08:08→19:38)
[2023-07-22] MEDS: ZESTRIL 10 MG PO (08:08)
[2023-07-22] MEDS: APRESOLINE 5 MG IV ×2 (08:42→17:51)
--- NOTE | 2023-07-22 09:00 | PTCARENOTE ---
Patient very agitated this morning. Frequently yelling out and crying. Stating things like 'You're trying to kill me. I want the cold. I want the cold. I'm going to kill myself.' When you give patient water, she spits it out and then attempts to gag
herself by placing her fingers into her mouth and down her throat. Attempts at trying to calm patient down last for minutes before she escalates again.
BP elevated, difficult to obtain a proper BP. Attending provider and psychiatry notified.
[2023-07-22] MEDS: ATIVAN 1 MG IV ×4 (09:20→21:58)
[2023-07-22] MEDS: NSS (PRESERVATIVE FREE) 0.5 ML IV ×2 (09:26→17:55)
--- NOTE | 2023-07-22 09:42 | W.PN.CARDCBS ---
Addendum entered and electronically signed by Baldev Gordillo MD 07/22/23 10:17:
I saw and examined the patient.
The Bond Clerk's note was reviewed and I agree with the note.
Comment:
GEN: No distress, sleepy
HEENT: supple, anicteric, mmm
LUNGS: CTA, no wheezes/rales
CV: Reg with ectopy, S1/S2, 1/6 syst LSB, no gallop
ABD: soft, BS+, NT/ND
EXT: No edema
NEURO: Gross non-focal
SKIN: No rash
Plan:
Continue to replete potassium and recheck labs. Try to keep K above 4 and mag above 2.
Blood pressure remains markedly elevated. Will give another dose of IV hydralazine 10 mg now. Continue lisinopril and will add low-dose metoprolol.
I suspect that restarting methadone will help her blood pressure as well.
Need to repeat EKG when she is not in bigeminy to better assess QT interval. Continue to avoid Zofran and Zoloft for now. Okay to use methadone.
Continue psych eval
Abnormal troponin is nonischemic myocardial injury
Original Note:
Today's Communication / Plan
-
Recheck labs this afternoon once KCl rider finished
If magnesium is low on recheck this afternoon then will order a mag rider
Adding Lopressor 25 mg PO BID to help with HTN
Recheck ECG, can probably restart a low dose of methadone following review of psychiatry team notes
Impression / Plan
-
PCP: Dr. Mckeon
Nickel Operator: None, initially seen by Dr. Jacobson
Impression:
Presented with nausea/vomiting
Prolonged QTc
Hypokalemia
Frequent PVC's/bigeminy
Elevated troponin
HTN
Hypothyroidism
Bipolar disorder
Chronic Hepatitis C
h/o opioid dependence, on methadone
Echo 07/21/23: EF 65-70%, no WMA, mild MR, no or AI, trace TR with PAP 20-25 mmHg
Plan:
-Overnight events noted, patient was found on the floor and is now essentially on a 1:1 with bed alarm. Also with an episode of vomiting overnight.
-Potassium 2.5 on 07/22/23 AM. Patient refusing KCl PO except for KCl 20 meq x1 on 07/20/23. Given K rider 40 meq at 07/22/23 at 0338 and ordered for an additional 80 meq to be given over four hours 07/22/23 morning to afternoon.
-Magnesium was 1.3 on admission and patient was given magnesium rider 1 gram IV 07/20/23 and 07/21/23. Magnesium is 1.7 on 07/22/23. Recheck magnesium 07/22/23 and if low then supplement IV again
-Frequent ventricular ectopy and bigeminy on tele. QTc by ECG 07/21/23 was 578 ms in the setting of low potassium, borderline low magnesium and meds including Zofran, Zoloft and methadone. Recheck ECG now.
-Consider restarting a lower dose of methadone upon review of psychiatry notes.
-Troponin flat at 0.063. Main complaint is abdominal pain, not chest pain. Echo without WMA and EF preserved. Will manage as a nonischemic myocardial injury Troponin elevation.
-HTN throughout admission thus far. Nursing was able to get patient to take her outpatient dose of lisinopril 10 mg PO daily. Hydralazine 5 mg IV x1 given 07/22/23. Will try adding Lopressor 25 mg PO BID.
HPI: Antoinette is a 62 year old female with PMH of HTN, hypothyroidism, bipolar disorder, chronic hepatitis C, and prior opioid dependence on methadone. She presented to [facility] for evaluation of persistent abdominal pain, nausea, and vomiting. In ER,
she was treated with zofran. She was noted to be febrile with temp of 100.6F. Leukocytosis noted with WBC 11.2. Troponin checked and returned elevated, trending up to 0.056. She was also hypokalemic and started on supplementation. She has ongoing
abdominal pain and nausea. On EKG, she was noted to be in bigeminy. Cardiology consulted due to elevated troponin. She reports no significant cardiac history and is unsure if she has been seen by a salesperson floor coverings in the past. Denies any recent
cardiology evaluations.
Progress Note - Nickel Operator
Subjective
Date of Service: July 22, 2023
Patient complains of abdominal pain then says everything hurts
Objective
Labs:
07/22/23 02:02
07/22/23 02:02
Labs
Hgb 12.7 g/dL (12.0-16.0) 07/22/23 02:02
Hct 34.1 % (37.0-47.0) L 07/22/23 02:02
Plt Count 238 10^3/uL (130-400) 07/22/23 02:02
Sodium 136 mmol/L (135-145) 07/22/23 02:02
Potassium 2.5 mmol/L (3.5-5.1) L* 07/22/23 02:02
BUN 22 mg/dl (7-17) H 07/22/23 02:02
Creatinine 0.7 mg/dL (0.6-1.0) 07/22/23 02:02
Glucose 114 mg/dl (70-99) H 07/22/23 02:02
Troponins
07/20/23 07/20/23 07/20/23
14:14 16:27 23:38
Troponin I 0.033 0.041 H* 0.052 H* D
07/21/23 07/21/23 07/21/23
00:54 04:23 12:48
Troponin I Cancelled 0.056 H* 0.063 H*
07/21/23
19:45
Troponin I Cancelled
Vital Signs and I&O:
Vital Signs
Temp Pulse Resp BP Pulse Ox
98.1 F 46 20 206/118 97
07/21/23 23:11 07/22/23 08:42 07/21/23 23:11 07/22/23 08:42 07/22/23 08:15
Vital Signs
Temp Pulse Resp BP Pulse Ox
98.1 F 46 20 206/118 97
07/21/23 23:11 07/22/23 08:42 07/21/23 23:11 07/22/23 08:42 07/22/23 08:15
Intake & Output
07/20/23 07/21/23 07/22/23 07/23/23
06:59 06:59 06:59 06:59
Intake Total 2029 / 2029 1550 / 1550
Output Total 800 / 800 300 / 300
Balance 1230 / 1230 1250 / 1250
Physical Exam
Physical Exam
GEN: Rocking back and forth on side of bed, 1:1 with nursing, Awake, alert and oriented to person, place and situation
HEENT: MMM, no teeth
LUNGS: No audible wheeze
CV: Reg with ectopy
ABD: Diffusely tender
EXT: No edema B/L LE
NEURO: No focal or lateralizing weakness
SKIN: No rash
--- NOTE | 2023-07-22 10:00 | PN.CDI ---
CDI
- -
CDI:
Physician Documentation Request
Admit Date: 07/20/23 18:38
Dear Doctor Karl,
Patient admitted with nausea and vomiting.
07/20 Cardiology PN: 'Elevated troponin noted, trending up to 0.056. Suspect nonischemic myocardial injury in the setting of nausea/vomiting and uncontrolled HTN.'
07/20 Hospitalist PN: 'Non ME trop elevation.'
Please clarify the following regarding the documented troponin elevation:
Non-ischemic myocardial injury
Lab abnormality
Other
Use of terms such as suspected, likely, concern for, or probable (associated with a specific diagnosis that is being evaluated, monitored, or treated as if it exists) are acceptable and can be coded in the inpatient setting, when documented at the
time of discharge.
Thank you,
Jacqueline Nina RN, BSN
CDI Specialist
Available via [place] text
Please use your independent medical judgment in providing your response.
--- NOTE | 2023-07-22 10:02 | W.PN.UPDATE ---
Update Note
Progress Note Update
Patient seen briefly this AM after an episode of reported agitation. Chart reviewed, discussed with ANGEL Rao and Cardiology. Patient is now resting calmly after receiving Ativan 1mg IV. She is sedated but does groan during assessment. She is
likely experiencing symptoms of opiate withdrawal as she has not reportedly had Methadone in 48 hours now. Subutex protocol recommended. In respect to concerns of agitation, options are quite limited given her acute medical issues including K+ of
2.5 and a QTC of 578 as well as nausea and vomiting. Her BP is also noted to be elevated, even after hydralazine and Ativan and her currently sedate, BP remains at 211/85. This could certainly have some correlation with opiate withdrawal and will be
readdressed once that is addressed. Reported Methadone dose is far higher than anything I have ever seen or used and should be further investigated. Patient with an unspecified mood/depressive disorder, home regimen reported as Zoloft, Gabapentin,
and Wellbutrin which are currently on hold. Will revisit once acute medical issues stabilized. Would continue IV Ativan for agitation for now. Again, Subutex protocol recommended to manage opioid withdrawal/maintenance.
[2023-07-22] MEDS: APRESOLINE 10 MG IV (10:55)
--- NOTE | 2023-07-22 12:52 | W.PN.HOSP.TC ---
Addendum entered and electronically signed by Rojelio Barajas MD 07/22/23 13:31:
Non-ischemic myocardial injury
Original Note:
Today's Communication/Plan
-
see plan
Assessment / Plan
Assessment / Plan
IMPRESSION:
62 woman with nausea, vomiting, and elevated troponin (0.41). ECG shows:
SINUS RHYTHM WITH FREQUENT PREMATURE VENTRICULAR COMPLEXES IN A PATTERN OF BIGEMINY
MINIMAL VOLTAGE CRITERIA FOR LVH, MAY BE NORMAL VARIANT ( Sokolow-Lujan )
NONSPECIFIC ST AND T WAVE ABNORMALITY
PROLONGED QT
ABNORMAL ECG
WHEN COMPARED WITH ECG OF 05-MAR-2001 07:59, SIGNIFICANT CHANGES HAVE OCCURRED
PLAN:
1. Non IA trop elevation. No chest pain. Vitals WNL
This may be from stress of illness, abd pain.
ASA in ED
Tele
Cycle troponin
Cardiology following- eventual ischemic eval
Bigeminy - cont electrolyte repletions
cards following
may eventually get echo when abd pain improves
Severe QTC prolongation
Most likely due to Methadone being given at extremely high doses 345 mg - held
Psych consulted to assess this dosing
Recommend subutex protocol - ordered
Replete K very closely
Telemetry monitoring
discussed with Dr. Jacobson, need to be very cautious, pt at risk for Torsades.
Severe agitation
given IV ativan as needed until psych can see
apprec psych
HTN urgency
hydralazine PRN
2. hypokalemia likely from GI loss
replete K and follow mag and replete as needed
3. Elevated WBC, 11.2 - likely from whatever is causing GI process
Follow
No indication for antibiotics at this time
4. Nausea and vomiting - may be viral
abd xr = non obstructive pattern
Clear liquid diet - then advance as tolerated
PRN tigan
Agitation
Psych consulted.
5. Med list not available - work on getting med list
Full code
VCD for DVTp
d/w pt sister
Anticipated Discharge: 24 - 48 hours
Subjective/Interval History
-
Date of Service: July 22, 2023
pt today noted today in opiod withdrawal
hypertensive, agitated required IV ativan
Objective Data
-
Labs:
Laboratory Results
07/22/23 07/22/23
02:02 15:00
WBC 13.3 H
Hgb 12.7
Hct 34.1 L
Plt Count 238
Sodium 136 Pending
Potassium 2.5 L* Pending
Chloride 102 Pending
Carbon Dioxide 19 L Pending
BUN 22 H Pending
Creatinine 0.7 Pending
Glucose 114 H Pending
Calcium 9.5 Pending
Total Bilirubin 0.7
AST 52 H
ALT 21
Alkaline Phosphatase 86
Vital Signs:
Vital Signs
Temp Pulse Resp BP Pulse Ox
99.2 F 79 20 183/94 97
07/22/23 11:00 07/22/23 11:35 07/21/23 23:11 07/22/23 11:35 07/22/23 08:15
I&O
07/21/23 07/22/23 07/23/23
06:59 06:59 06:59
Intake Total 2029 / 2029 1550 / 1550
Output Total 800 / 800 300 / 300
Balance 1230 / 1230 1250 / 1250
Review of Systems
-
History Source: Patient
All other systems: Reviewed and negative
Physical Exam
-
General: Well Developed and No Apparent Distress
HEENT: Normocephalic, Atraumatic and Moist Mucous Membranes
Respiratory: Clear to Auscultation
Cardiac: Regular Rhythm and S1/S2; Negative Murmur, Rub or Gallop
GI: Soft, Nontender, Nondistended and Normal Bowel Sounds; Negative Organomegaly
Rectal: Deferred by Provider
Musculoskeletal: No Clubbing, No Cyanosis and No Edema
Skin: Negative Rash
Neuro: Nonfocal/Grossly Intact
Psych: Anxious
--- NOTE | 2023-07-22 14:00 | PTCARENOTE ---
Patient now on COWS protocol per Dr. Barajas. Patient scored 12 (mild withdrawal). Subutex not loaded in omnicell. Notified pharmacy.
Considering patient's agitation, medicated with PRN Ativan as it had been effective this AM when given.
Patient instantly more calmer, and fell asleep after IV Ativan.
[2023-07-22 14:43] LABS: Fentanyl, Urine Negative (Negative)
[2023-07-22] MEDS: TIGAN 200 MG IM (15:25)
[2023-07-22 15:33] LABS: Amphetamines Negative (Negative); Marijuana Positive (Negative); Methadone Positive (Negative)
[2023-07-22 15:34] LABS: Barbiturates Negative (Negative); Benzodiazepines Negative (Negative); Buprenorphine Negative (Negative); Cocaine Negative (Negative); Methamphetamines Negative (Negative); Opiates Negative (Negative); Phencyclidine Negative (Negative); Tricyclic Antidepressants Negative (Negative)
[2023-07-22] MEDS: SUBUTEX SL (15:35)
--- NOTE | 2023-07-22 15:35 | PTCARENOTE ---
Attempted to give patient Subutex SL Tablet. Patient forced self to vomit/spit the medication back up into the trash.
--- NOTE | 2023-07-22 17:25 | PTCARENOTE ---
Patient largely incontinent of urine. Significantly more disoriented at this time, continuing to intermittently yell and cry out. Complete bed bath performed.
[2023-07-22 17:40] LABS: Blood Urea Nitrogen 22 mg/dl (7-17); Calcium 9.6 mg/dl (8.4-10.2); Carbon Dioxide 17 mmol/L (22-30); Chloride 112 mmol/L (98-107); Estimated Creatinine Clearance 76 ml/min; Glucose 108 mg/dl (70-99); Magnesium 1.7 mg/dl (1.6-2.3); Potassium 3.6 mmol/L (3.5-5.1); Sodium 140 mmol/L (135-145); eGFR > 60.00
[2023-07-22] MEDS: LOPRESSOR PO (19:37)
--- NOTE | 2023-07-22 19:45 | PTCARENOTE ---
pt refusing po medications at this time. pt unable to be redirected but no attempts out of bed.. sister at bedside. 1:1 at bedside. Toradol given for generalized pain. nss @ 125cc/hr. Will closely monitor
[2023-07-22] MEDS: SUBUTEX 8 MG SL (21:04)
[2023-07-23] VITALS (18 sets, daily range): BP systolic 158–240; BP diastolic 87–112; BMI 20.7
--- NOTE | 2023-07-23 00:04 | PTCARENOTE ---
unable to get accurate blood pressure. patient continues to move in bed/move arm when attempting to get blood pressure. will try again.
[2023-07-23 02:34] LABS: % Basophils 0.1 % (0-2); % Immature Granulocytes 0.6 % (0-0.5); % Lymphocytes 8.1 % (20.5-51.1); % Monocytes 6.4 % (1.7-9.3); % Neutrophils 84.8 % (42.2-75.2); Absolute Immature Granulocytes 0.1 10^3/uL (0-0.05); Absolute Lymphocytes 1.1 10^3/uL (1.2-3.4); Absolute Monocytes 0.9 10^3/uL (0.1-0.6); Absolute Neutrophils 11.4 10^3/uL (1.4-6.5); Hematocrit 38.9 % (37.0-47.0); Hemoglobin 13.6 g/dL (12.0-16.0); Mean Corpuscular Volume 85.7 fL (81.0-99.0); Mean Platelet Volume 10.9 fL (7.4-10.4); Nucleated Red Blood Cells % 0 %; Platelet Count 229 10^3/uL (130-400); Red Blood Cell Count 4.54 10^6/uL (4.20-5.40); Red Cell Dist. Width 12.3 % (11.5-14.5); White Blood Cell Count 13.5 10^3/uL (4.8-10.8)
[2023-07-23] MEDS: SUBUTEX 8 MG SL (02:49)
[2023-07-23 02:58] LABS: ALT (SGPT) 22 U/L (0-35); AST (SGOT) 42 U/L (14-36); Albumin 4.6 g/dl (3.5-5.0); Alkaline Phosphatase 80 U/L (38-126); Blood Urea Nitrogen 22 mg/dl (7-17); Calcium 9.9 mg/dl (8.4-10.2); Carbon Dioxide 21 mmol/L (22-30); Chloride 110 mmol/L (98-107); Direct Bilirubin 0.5 mg/dl (0.0-0.4); Estimated Creatinine Clearance 66 ml/min; Glucose 104 mg/dl (70-99); Magnesium 1.6 mg/dl (1.6-2.3); Potassium 2.9 mmol/L (3.5-5.1); Sodium 143 mmol/L (135-145); Total Bilirubin 0.7 mg/dl (0.2-1.3); Total Protein 7.6 g/dl (6.3-8.2); eGFR > 60.00
--- NOTE | 2023-07-23 03:23 | PTCARENOTE ---
Addendum entered by John Lewis RN 07/23/23 04:01:
COWS score 3. patient shifting in bed at times. denies any symptoms when asked.
Original Note:
patient became increasingly agitated/restless. unable to sit still. conversing with RN and tech. pleasant conversation at times and then screaming. 'i want my momma.' comfort measures attempted-bed/bath completed. COWS score 11. second dose of PRN
Subutex given, see jun.
[2023-07-23] MEDS: MAGNESIUM SULFATE 50 IV (04:11)
--- NOTE | 2023-07-23 04:26 | PTCARENOTE ---
K 2.9 and mag 1.6 this morning. updated [employer] GENDER STUDIES PROFESSOR. orders placed for IV K and IV mag, see jun.
[2023-07-23] MEDS: NSS IV (05:31)
[2023-07-23] MEDS: KCL 270 MEQ IV (06:09)
[2023-07-23] MEDS: LOPRESSOR 25 MG PO (07:26)
[2023-07-23] MEDS: ATIVAN 1 MG IV ×4 (07:27→23:33)
[2023-07-23] MEDS: ZESTRIL 10 MG PO (07:27)
[2023-07-23] MEDS: KLOR-CON PO ×2 (07:37→21:22)
--- NOTE | 2023-07-23 08:14 | PTCARENOTE ---
Pt received from maintenance supervisor 2nd shift RN. Oriented to self only. Pt remains in bed with 1:1 at bedside for safety. NSR on monitoring tech. BPs elevated. Pt able to swallow oral Lopressor and Lisinopril with water this AM. Will continue to monitor BPs. IV
Ativan given for agitation with relief. IV Potassium infusing through R FA PIV. Assessment documented.
[2023-07-23] MEDS: APRESOLINE 5 MG IV ×3 (09:17→21:07)
--- NOTE | 2023-07-23 10:13 | W.PN.CARDCBS ---
Addendum entered and electronically signed by Baldev Gordillo MD 07/23/23 15:15:
I saw and examined the patient.
The Mobile Home Lot Utility Worker's note was reviewed and I agree with the note.
Comment:
GEN: No distress, resting
HEENT: supple, anicteric, mmm
LUNGS: scatt rhonchi
CV: Reg, S1/S2, 1/6 syst LSB, no gallop
ABD: soft, BS+, NT/ND
EXT: No edema
NEURO: Gross non-focal
SKIN: No rash
Plan:
Blood pressure remains elevated. Agree with plan to start methadone for withdrawal symptoms.
Continue IV hydralazine as needed. Continue metoprolol and lisinopril. Okay to use clonidine and follow.
Replete potassium. Goal K is about 4
QT interval remains abnormal but PVCs have improved. Continue to avoid QT prolonging drugs. Methadone would be okay from my standpoint
Original Note:
Today's Communication / Plan
-
Hydralazine 10 mg IV x1 now
Lopressor 25 mg BID started yesterday and today is being started on clonidine, follow on tele
QTc has improved, but still hypokalemic
Impression / Plan
-
PCP: Dr. Mckeon
Shingler: None, initially seen by Dr. Jacobson
Impression:
Presented with nausea/vomiting
Prolonged QTc
Hypokalemia
Frequent PVC's/bigeminy
Elevated troponin
HTN
Hypothyroidism
Bipolar disorder
Chronic Hepatitis C
h/o opioid dependence, on methadone
Echo 07/21/23: EF 65-70%, no WMA, mild MR, no or AI, trace TR with PAP 20-25 mmHg
Plan:
-Case reviewed with Hospitalist attending and the plan is fot restart half her normal dose of methadone 07/23/23 for signs and symptoms of withdrawal. Patient was chronically on methadone prior to admission for h/o drug abuse.
-Prolonged QTc has improved. Recommend daily ECGs to follow QTc as methadone is reintroduced.
-Ongoing hypokalemia despite aggressive supplementation. Patient cannot/is unable to take KCl PO so K riders have been given. In summary, KCl 20 meq x1 on 07/20/23, K rider 40 meq at 07/22/23 at 0338 and then given an additional K rider 80 meq 07/22/23,
K rider for 40 meq 07/23/23.
-Magnesium also being supplemented and magnesium rider for 2 grams given 07/23/23
-Ventricular ectopy is improving as hypokalemia is improving. Cont to follow on tele
-Troponin flat at 0.063. Main complaint was abdominal pain, not chest pain. Echo without WMA and EF preserved. Will manage as a nonischemic myocardial injury Troponin elevation.
-HTN throughout admission thus far. Outpatient dose of lisinopril 10 mg daily has been continued.
-Started on Lopressor 25 mg BID 07/22/23
-Hospitalists starting patient on clonidine 0.1 mg TID 07/23/23
-Hydralazine 10 mg IV x1 now ordered by me for HTN
HPI: Antoinette is a 62 year old female with PMH of HTN, hypothyroidism, bipolar disorder, chronic hepatitis C, and prior opioid dependence on methadone. She presented to [facility] for evaluation of persistent abdominal pain, nausea, and vomiting. In ER,
she was treated with zofran. She was noted to be febrile with temp of 100.6F. Leukocytosis noted with WBC 11.2. Troponin checked and returned elevated, trending up to 0.056. She was also hypokalemic and started on supplementation. She has ongoing
abdominal pain and nausea. On EKG, she was noted to be in bigeminy. Cardiology consulted due to elevated troponin. She reports no significant cardiac history and is unsure if she has been seen by a brickmason helper in the past. Denies any recent
cardiology evaluations.
Progress Note - Shingler
Subjective
Date of Service: July 23, 2023
She says she is in pain
Objective
Labs:
07/23/23 02:10
07/23/23 02:10
Labs
Hgb 13.6 g/dL (12.0-16.0) 07/23/23 02:10
Hct 38.9 % (37.0-47.0) 07/23/23 02:10
Plt Count 229 10^3/uL (130-400) 07/23/23 02:10
Sodium 143 mmol/L (135-145) 07/23/23 02:10
Potassium 2.9 mmol/L (3.5-5.1) L 07/23/23 02:10
BUN 22 mg/dl (7-17) H 07/23/23 02:10
Creatinine 0.8 mg/dL (0.6-1.0) 07/23/23 02:10
Glucose 104 mg/dl (70-99) H 07/23/23 02:10
Troponins
07/20/23 07/20/23 07/20/23
14:14 16:27 23:38
Troponin I 0.033 0.041 H* 0.052 H* D
07/21/23 07/21/23 07/21/23
00:54 04:23 12:48
Troponin I Cancelled 0.056 H* 0.063 H*
07/21/23
19:45
Troponin I Cancelled
Vital Signs and I&O:
Vital Signs
Temp Pulse Resp BP Pulse Ox
98.6 F 59 100
07/23/23 06:46 07/23/23 09:47 07/23/23 06:46 07/23/23 09:47 07/23/23 06:46
Vital Signs
Temp Pulse Resp BP Pulse Ox
98.6 F 59 100
07/23/23 06:46 07/23/23 09:47 07/23/23 06:46 07/23/23 09:47 07/23/23 06:46
Intake & Output
07/21/23 07/22/23 07/23/23 07/24/23
06:59 06:59 06:59 06:59
Intake Total 2029 / 2029 1550 / 1550 1050 / 1050
Output Total 800 / 800 300 / 300
Balance 1230 / 1230 1250 / 1250 1050 / 1050
Physical Exam
Physical Exam
GEN: 1:1 with nursing. Awake and alert
HEENT: MMM, no teeth
LUNGS: No audible wheeze
CV: Reg with ectopy
ABD: Diffusely tender
EXT: No edema B/L LE
NEURO: No focal or lateralizing weakness
SKIN: No rash
[2023-07-23] MEDS: APRESOLINE 10 MG IV (10:46)
--- NOTE | 2023-07-23 10:50 | W.PN.HOSP.TC ---
Today's Communication/Plan
-
Transition back to methadone
Add clonidine for better blood pressure control.
Continue IV fluids, replete potassium, follow BMP.
Aspiration precautions
Assessment / Plan
Assessment / Plan
Impression:
Presentation with nausea and vomiting.
Prolonged QTc
Frequent PVCs with bigeminy
Non-[place] troponin elevation
Hypokalemia
Opiate use disorder with opiate withdrawal, severe
Hypertensive urgency secondary to opiate withdrawal.
Conditions prior to admission:
Essential hypertension
Hypothyroidism
Opiate use disorder on methadone
Bipolar disorder
Chronic hepatitis C.
Plan:
Opiate use disorder, severe with opiate withdrawal
Patient remains periodically agitated and then lethargic
Noted elevated blood pressure likely function of opiate withdrawal
On high-dose of methadone 345 mg daily prior to admission
Methadone has been on hold due to prolonged QTc
Discussed with psychiatry. Given normalization of QTc okay to transition back from Suboxone to methadone at the 50% dose.
Add clonidine for accelerated blood pressure 0.1 mg twice daily and titrate. Monitor for possible bradycardia while on beta-blockers.
Essential hypertension
Hypertensive urgency in the settings of opiate withdrawal.
Continue metoprolol, lisinopril, IV hydralazine
Add clonidine point 1 mg twice daily with titration.
Prolonged QTc
Improved with IV fluids and electrolyte repletion
Continue cardiac monitoring.
Non-[place] troponin elevation
Echo noted with preserved biventricular function.
Hypothyroidism on replacement
Bipolar disorder preadmission regimen central line bupropion currently on hold.
Mild leukocytosis.
Has been afebrile.
Monitor closely
If persistent, consider workup including chest x-ray given reasonable aspiration risk in current condition.
Anticipated Discharge: > 48 hours
Subjective/Interval History
-
Date of Service: July 23, 2023
Objective Data
-
Labs:
Laboratory Results
07/23/23
02:10
WBC 13.5 H
Hgb 13.6
Hct 38.9
Plt Count 229
Sodium 143
Potassium 2.9 L
Chloride 110 H
Carbon Dioxide 21 L
BUN 22 H
Creatinine 0.8
Glucose 104 H
Calcium 9.9
Total Bilirubin 0.7
AST 42 H
ALT 22
Alkaline Phosphatase 80
Vital Signs:
Vital Signs
Temp Pulse Resp BP Pulse Ox
98.6 F 59 24 223/107 100
07/23/23 06:46 07/23/23 09:47 07/23/23 06:46 07/23/23 10:46 07/23/23 06:46
I&O
07/22/23 07/23/23 07/24/23
06:59 06:59 06:59
Intake Total 1550 / 1550 1050 / 1050
Output Total 300 / 300
Balance 1250 / 1250 1050 / 1050
Physical Exam
-
General: Well Developed and No Apparent Distress
HEENT: Normocephalic, Atraumatic and Moist Mucous Membranes
Respiratory: Clear to Auscultation
Cardiac: Regular Rhythm and S1/S2; Negative Murmur, Rub or Gallop
GI: Soft, Nontender, Nondistended and Normal Bowel Sounds; Negative Organomegaly
Rectal: Deferred by Provider
Musculoskeletal: No Clubbing, No Cyanosis and No Edema
Skin: Negative Rash
Neuro: Awake, Nonfocal/Grossly Intact and Other (Noncommunicative)
[2023-07-23] MEDS: CATAPRES 0.100000000000000006 MG PO ×3 (10:52→21:08)
[2023-07-23] MEDS: CATAPRES PO (10:56)
--- NOTE | 2023-07-23 11:00 | W.PN.UPDATE ---
Update Note
Progress Note Update
patient seen chart reviewed. spoke with nursing ms messina and with dr jara. the patient is in a delirious state. she is agitated repeating over and over 'Help me...' bp is very elevated earlier today systolic 240 now 223. concern that using
buprenorphine in a patient who was maintained on 345 mg methadone last received on 07.19 could be worsening withdrawal (the half life of methadone is seven days). discussed w ms messina and dr jara . a decision made to start 200 mg methadone a
little more than half the dose she was receiving. that patient received buprenorphine this am will diminish the effect of methadone some since buprenorphine has opiate antagonist properties in addition to being a partial opiate agonist. after
discussion w ms messina have also increased clonidine to o.1 mg tid for bp control. qtc is now normal. will follow
[2023-07-23] MEDS: METHADONE 100 MG/10 ML 200 MG PO (11:17)
--- NOTE | 2023-07-23 11:32 | CM ---
CM following for DC planning needs.
Collaborated with the RN this AM; patient on 1:1, still confused.
Reviewed initial assessment. Pt. resides alone in a private apartment. Functionally, patient is indep. w/ ADLs, mobility.
Goal is for DC to home, no needs.
Will follow.
[2023-07-23] MEDS: LOPRESSOR PO (20:40)
--- NOTE | 2023-07-23 21:22 | PTCARENOTE ---
Addendum entered by John Lewis RN 07/23/23 22:38:
improved bp-159/89. HR SB 56.
Original Note:
patient's bp elevated- 200/100. IV Hydralazine PRN given, see mar. patient appears to have swallowed clonidine. attempted to administer potassium chloride powder in her drink but patient spit it up on the floor. HR SB 40s-50s.
patient drowsy at times, arouses to voice. oriented to self. unable to stay on topic at times; unable to carry on conversation with patient. appears to be comfortable, no pain. 1:1 at the bedside for safety. patient will makes needs known when she
has to use restroom, ambulated with a standby assist. patient turns and repositions self in the bed.
[2023-07-23] MEDS: NSS (PRESERVATIVE FREE) 0.5 ML IV (23:33)
--- NOTE | 2023-07-23 23:38 | PTCARENOTE ---
patient increasingly agitated; restless in bed. calling out. PRN ativan given, see mar.
[2023-07-24] VITALS (16 sets, daily range): BP systolic 149–223; BP diastolic 91–130; BMI 20.3
[2023-07-24] MEDS: ATIVAN 1 MG IV ×6 (03:03→22:17)
[2023-07-24] MEDS: NSS (PRESERVATIVE FREE) 0.5 ML IV ×5 (03:03→17:27)
[2023-07-24] MEDS: APRESOLINE 5 MG IV ×4 (03:42→23:16)
[2023-07-24 03:47] LABS: % Basophils 0.1 % (0-2); % Immature Granulocytes 0.7 % (0-0.5); % Lymphocytes 11.7 % (20.5-51.1); % Monocytes 6.4 % (1.7-9.3); % Neutrophils 81.1 % (42.2-75.2); Absolute Immature Granulocytes 0.1 10^3/uL (0-0.05); Absolute Lymphocytes 1.6 10^3/uL (1.2-3.4); Absolute Monocytes 0.9 10^3/uL (0.1-0.6); Absolute Neutrophils 11.2 10^3/uL (1.4-6.5); Hematocrit 41.4 % (37.0-47.0); Hemoglobin 14.4 g/dL (12.0-16.0); Mean Corp Hgb Conc. 34.8 g/dL (33.0-37.0); Mean Corpuscular Hgb 29.9 pg (27.0-31.0); Mean Corpuscular Volume 85.9 fL (81.0-99.0); Mean Platelet Volume 11.1 fL (7.4-10.4); Nucleated Red Blood Cells % 0 %; Platelet Count 240 10^3/uL (130-400); Red Blood Cell Count 4.82 10^6/uL (4.20-5.40); Red Cell Dist. Width 12.4 % (11.5-14.5); White Blood Cell Count 13.8 10^3/uL (4.8-10.8)
[2023-07-24 04:01] LABS: ALT (SGPT) 21 U/L (0-35); AST (SGOT) 30 U/L (14-36); Albumin 4.4 g/dl (3.5-5.0); Alkaline Phosphatase 77 U/L (38-126); Blood Urea Nitrogen 36 mg/dl (7-17); Calcium 10.2 mg/dl (8.4-10.2); Carbon Dioxide 21 mmol/L (22-30); Chloride 110 mmol/L (98-107); Estimated Creatinine Clearance 58 ml/min; Glucose 113 mg/dl (70-99); Magnesium 2.2 mg/dl (1.6-2.3); Sodium 143 mmol/L (135-145); Total Bilirubin 0.9 mg/dl (0.2-1.3); Total Protein 7.4 g/dl (6.3-8.2); eGFR > 60.00
[2023-07-24] MEDS: KCL 270 MEQ IV (05:31)
--- NOTE | 2023-07-24 06:08 | PTCARENOTE ---
K 3.0 this morning. IV potassium ordered and running, see mar.
--- NOTE | 2023-07-24 06:41 | PTCARENOTE ---
patient became increasingly agitated this morning. patient continued to grab L wrist. IV site check-site pink, warm. flushed IV with no occlusion. scant blood return noted. PRN ativan given through site.
multiple attempts for a new IV site. no success; updated IV team for possible Midline. per IV team, administer IV K at slower rate and with a warm compress. attempted and patient continued to scream out. when ask, patient stated her L wrist hurt. IV
K stopped. site flushed with no issue.
[2023-07-24] MEDS: METHADONE 100 MG/10 ML PO ×2 (07:47→08:49)
[2023-07-24] MEDS: KLOR-CON PO ×2 (08:48→19:17)
[2023-07-24] MEDS: CATAPRES PO (08:48)
[2023-07-24] MEDS: LOPRESSOR PO (08:48)
[2023-07-24] MEDS: ZESTRIL PO (08:49)
--- NOTE | 2023-07-24 08:49 | PTCARENOTE ---
Pt received from chronograph operator RN. Refusing to answer orientation questions. Pt continues to wax and wane between periods of drowsiness and restlessness. NSR on cardiac nurse specialist. Attempted to give pt PO methadone and pt spit medication on floor. Pt
also refusing to take any oral pills at this time. New L FA PIV placed. IV potassium restarted. IV hydral given for elevated BPs. BP prior to administration 203/109. Continuing with IV ativan for agitation/withdrawal symptoms. Psych following.
Assessment documented.
[2023-07-24] MEDS: CATAPRES-TTS-2 0.200000000000000011 MG TRANSDERM (09:24)
--- NOTE | 2023-07-24 10:38 | CM ---
CM following for DC planning needs.
DC needs uncertain at this time given level of confusion and agitation.
Will continue to follow closely and assist with needs as they arise.
--- NOTE | 2023-07-24 10:54 | W.PN.CARDCBS ---
Addendum entered and electronically signed by Kellie Ellis DO 07/24/23 13:09:
I saw and examined the patient.
The Jet Operator's note was reviewed and I agree with the note.
Comment: Seen and examined with nursing. Patient received Ativan this morning and although opens eyes is not communicative. Overnight and this morning patient has been refusing oral medications. Psychiatry notes were reviewed; plan discussed with
primary
GEN: Frail 62-year-old female who appears older than stated age. Sedated and opens eyes to name but not answering questions.
HEENT: MMM, no teeth
LUNGS: Poor effort but otherwise clear
CV: Reg with ectopy, positive S1-S2. No murmur.
ABD: Soft, positive bowel sounds
EXT: No edema B/L LE
Plan:
Blood pressure remains elevated however she is not taking oral medications per nursing
-Discussed with hospitalist and will place Dobbhoff
-IV Lopressor as needed added as well as IV hydralazine. Clonidine changed to transdermal patch
Prolonged QTc in the setting of electrolyte abnormalities
-Now improved
-Avoid QT prolonging drugs
-Would repeat EKG in 48 to 72 hours
-Monitor on telemetry
-Correct electrolytes: K greater than 4, mag greater than 2, phosphorus greater than 2.5
Will sign off, recall if needed
Original Note:
Today's Communication / Plan
-
Change Lopressor PO to IV plus adding a PRN dose
Follow ECG, but QTc has improved for the last 2 days
Impression / Plan
-
PCP: Dr. Mckeon
Pigment Making Supervisor: None, initially seen by Dr. Jacobson
Impression:
Presented with nausea/vomiting
Prolonged QTc
Hypokalemia
Frequent PVC's/bigeminy
Elevated troponin
HTN
Hypothyroidism
Bipolar disorder
Chronic Hepatitis C
h/o opioid dependence, on methadone
Refusal to take PO meds
Echo 07/21/23: EF 65-70%, no WMA, mild MR, no or AI, trace TR with PAP 20-25 mmHg
Plan:
-Patient restarted on methadone 200 mg daily 07/23/23. Patient was taking methadone prior to admission and there was concern for increasing symptoms of withdrawal after methadone held in the setting of prolonged QT on admission. Patient was
chronically on methadone prior to admission for h/o IV drug abuse.
-Prolonged QTc has improved with correction of electrolyte abnormalities and the discontinuation of Zofran that was being used for nausea.
-QTc stable at 470 ms 07/24/23 AM following restart of methadone 07/23/23
-Potassium is 3.0 on 07/24/23 using IV supplementation as patient is refusing PO meds.
-Ventricular ectopy improved as hypokalemia improved. Cont to follow on tele
-Patient refusing all PO meds, including methadone, 07/24/23. Not sure that patient is capable of making any decisions for herself.
-HTN throughout admission thus far. Now that patient is refusing PO meds will change Lopressor to 5 mg PO q 6 hours plus a PRN dose.
-Outpatient dose of lisinopril 10 mg daily was continued, but intermittently missing doses depending on if she refuses.
-Started on Lopressor 25 mg BID 07/22/23, but intermittently missing doses depending on if she refuses.
-Hospitalists started patient on clonidine 0.1 mg TID 07/23/23, but transitioned to patch 07/24/23
-Troponin flat at 0.063. Main complaint was abdominal pain, not chest pain. Echo without WMA and EF preserved. Will manage as a nonischemic myocardial injury Troponin elevation.
HPI: Antoinette is a 62 year old female with PMH of HTN, hypothyroidism, bipolar disorder, chronic hepatitis C, and prior opioid dependence on methadone. She presented to [facility] for evaluation of persistent abdominal pain, nausea, and vomiting. In ER,
she was treated with zofran. She was noted to be febrile with temp of 100.6F. Leukocytosis noted with WBC 11.2. Troponin checked and returned elevated, trending up to 0.056. She was also hypokalemic and started on supplementation. She has ongoing
abdominal pain and nausea. On EKG, she was noted to be in bigeminy. Cardiology consulted due to elevated troponin. She reports no significant cardiac history and is unsure if she has been seen by a moto mix operator in the past. Denies any recent
cardiology evaluations.
Progress Note - Pigment Making Supervisor
Subjective
Date of Service: July 24, 2023
Shaking her head
Objective
Labs:
07/24/23 03:05
07/24/23 03:05
Labs
Hgb 14.4 g/dL (12.0-16.0) 07/24/23 03:05
Hct 41.4 % (37.0-47.0) 07/24/23 03:05
Plt Count 240 10^3/uL (130-400) 07/24/23 03:05
Sodium 143 mmol/L (135-145) 07/24/23 03:05
Potassium 3.0 mmol/L (3.5-5.1) L 07/24/23 03:05
BUN 36 mg/dl (7-17) H 07/24/23 03:05
Creatinine 0.9 mg/dL (0.6-1.0) 07/24/23 03:05
Glucose 113 mg/dl (70-99) H 07/24/23 03:05
Troponins
07/21/23 07/21/23 07/21/23
00:54 12:48 19:45
Troponin I Cancelled 0.063 H* Cancelled
Vital Signs and I&O:
Vital Signs
Temp Pulse Resp BP Pulse Ox
97.8 F 90 18 170/126 96
07/24/23 03:04 07/24/23 09:24 07/24/23 03:04 07/24/23 09:24 04/04/24 03:04
Vital Signs
Temp Pulse Resp BP Pulse Ox
97.8 F 90 18 170/126 96
07/24/23 03:04 07/24/23 09:24 07/24/23 03:04 07/24/23 09:24 07/24/23 03:04
Intake & Output
07/22/23 07/23/23 07/24/23 07/25/23
06:59 06:59 06:59 06:59
Intake Total 1550 / 1550 1050 / 1050 480 / 480
Output Total 300 / 300
Balance 1250 / 1250 1050 / 1050 480 / 480
Physical Exam
Physical Exam
GEN: 1:1 with nursing. Awake and alert
HEENT: MMM, no teeth
LUNGS: No audible wheeze
CV: Reg with ectopy
ABD: Diffusely tender
EXT: No edema B/L LE
NEURO: No focal or lateralizing weakness
SKIN: No rash
[2023-07-24] MEDS: LOPRESSOR 5 MG IV ×4 (11:20→23:15)
--- NOTE | 2023-07-24 13:07 | W.PN.UPDATE ---
Update Note
Progress Note Update
attempted DHT as pt unable to take medication. right nare with resistance in back of nasal cavity ? pt clamping down with resistence. Left nare unable to pass 2 inches beyond nare. Would be concerned if able to place pt will pull out as very
resistant to tube placement. Reviewed with Dr. Pack and Dr. jara. Attempted liquids. Initially took some water then spit out apple juice. No signs of aspiration. Continue periodic trials of oral as per staff able to take oral meds
yesterday.
--- NOTE | 2023-07-24 14:15 | W.PN.UPDATE ---
Update Note
Progress Note Update
patient seen chart reviewed. spoke with nursing and with dr jara. patient intermittently agitated. no longer taking po food or fluids. concern re dehydration. patient is not at all communicative. withdrawal continues w elevated bp.
afebrile. labs do not show any clear etiology. unable to place ng tube discussed w dr jara use of zyprexa im in the hopes this will calm her enough to get in ng tube and restart methadone and other medications bp is high presumably opiate
withdrawal. has clonidine patch as she will not take po . patient has a encinas at this point. my need restraint to avoid her pulling it out. check ua as infection which can worsen encephalopathy no other obvious cause afebrile consider neuro
consult if does not improve/cat scan etc. will continue to follow
--- NOTE | 2023-07-24 14:16 | PTCARENOTE ---
Addendum entered by Yan Paredes RN 07/24/23 15:37:
Asked Dr. Jauregui to place order for straight cath. Responded with order to place Albert. Albert placed per order.
Original Note:
Pt unable to void throughout shift. Bladder scan showed 818mL. Dr. Jauregui aware. Albert ordered. Albert placed by RN. 600mL initially drained. Pt making frequent attempts to remove Albert despite redirection by nursing staff.
--- NOTE | 2023-07-24 14:38 | W.PN.HOSP.TC ---
Today's Communication/Plan
-
Unable to place NG tube given patient agitation.
Patient ripped of transdermal clonidine
Will continue IV lorazepam and with addition of Zyprexa injection.
Patient spat out methadone
IV fluids at the maintenance
Albert catheter for acute retention
Recheck urine cultures
IV fluids at the maintenance
Discussed with nursing, psychiatry, patient's sister over the phone.
Assessment / Plan
Assessment / Plan
Impression:
Presentation with nausea and vomiting.
Prolonged QTc
Frequent PVCs with bigeminy
Persistent delirium secondary to opiate withdrawal
Opiate use disorder with opiate withdrawal, severe
Non-NE troponin elevation
Hypokalemia
Hypertensive urgency secondary to opiate withdrawal.
Acute urine retention
Conditions prior to admission:
Essential hypertension
Hypothyroidism
Opiate use disorder on methadone former heroin addict.
Bipolar disorder
Chronic hepatitis C.
Plan:
Delirium suspect secondary to opiate withdrawal.
Patient with no oral intake.
Spitting out oral medications.
Was not able to placed NG tube for feeding and medications given patient agitation.
Continue IV lorazepam.
Discussed with psychiatry with plan to add Zyprexa injection
Will continue IV fluid monitor electrolytes.
History of depression/bipolar disorder. Preadmission medications including bupropion, gabapentin, sertraline has been on hold.
Opiate use disorder, severe with opiate withdrawal
Patient remains periodically agitated and then lethargic
Noted elevated blood pressure likely function of opiate withdrawal
On high-dose of methadone 345 mg daily prior to admission
Methadone has been on hold due to prolonged QTc
Discussed with psychiatry. Given normalization of QTc okay to transition back from Suboxone to methadone at reduced dose of 200 mg
Add clonidine for accelerated blood pressure 0.1 mg twice daily and titrate. Monitor for possible bradycardia while on beta-blockers.
Urinary retention PVR over 800 mL on 07/23
Albert catheter ordered on 07/23 for acute urine retention
Will check urine cultures
Persistent leukocytosis
Afebrile
Remains aspiration risk given mental status.
Recheck urine cultures.
Monitor closely off antibiotics.
Essential hypertension
Hypertensive urgency in the settings of opiate withdrawal.
Continue metoprolol, lisinopril, IV hydralazine
Attempt to add clonidine initially oral later with patch given no oral intake
Prolonged QTc
Improved with IV fluids and electrolyte repletion
Continue cardiac monitoring.
Non-NE troponin elevation
Echo noted with preserved biventricular function.
Hypothyroidism on replacement
Anticipated Discharge: > 48 hours
Subjective/Interval History
-
Date of Service: July 24, 2023
Objective Data
-
Labs:
Laboratory Results
07/24/23
03:05
WBC 13.8 H
Hgb 14.4
Hct 41.4
Plt Count 240
Sodium 143
Potassium 3.0 L
Chloride 110 H
Carbon Dioxide 21 L
BUN 36 H
Creatinine 0.9
Glucose 113 H
Calcium 10.2
Total Bilirubin 0.9
AST 30
ALT 21
Alkaline Phosphatase 77
Vital Signs:
Vital Signs
Temp Pulse Resp BP Pulse Ox
97.9 F 98 18 177/122 96
07/24/23 14:27 07/24/23 11:20 07/24/23 03:04 07/24/23 11:20 07/24/23 03:04
I&O
07/23/23 07/24/23 07/25/23
06:59 06:59 06:59
Intake Total 1050 / 1050 480 / 480
Balance 1050 / 1050 480 / 480
Physical Exam
-
General: Well Developed and No Apparent Distress
HEENT: Normocephalic, Atraumatic and Moist Mucous Membranes
Respiratory: Clear to Auscultation
Cardiac: Regular Rhythm and S1/S2; Negative Murmur, Rub or Gallop
GI: Soft, Nontender, Nondistended and Normal Bowel Sounds; Negative Organomegaly
Rectal: Deferred by Provider
Musculoskeletal: No Clubbing, No Cyanosis and No Edema
Skin: Negative Rash
Neuro: Awake, Nonfocal/Grossly Intact and Other (Agitated ripping off lines, noncommunicative.)
[2023-07-24] MEDS: ZYPREXA 5 MG IM ×2 (14:46→20:46)
[2023-07-24] MEDS: STERILE WATER FOR INJECTION 2.10000000000000009 ML IM ×2 (14:47→20:46)
[2023-07-24] MEDS: D5/0.45%NSS with KCL 20 MEQ 1000 IV (14:47)
[2023-07-24 14:55] LABS: Urine Albumin 2+ (Neg - Trace); Urine Bilirubin 1+ (Negative); Urine Character Clear (Clear); Urine Color Yellow; Urine Glucose Negative (Negative); Urine Ketone 2+ (Negative); Urine Leukocyte Trace (Negative); Urine Nitrite Negative (Negative); Urine Occult Blood Negative (Negative); Urine Urobilinogen Negative (Neg - 1+)
[2023-07-24 15:15] LABS: Urine Amorphous Seen; Urine Hyaline Cast 0-2 /LPF (0-2); Urine Mucus Few
[2023-07-24 15:17] LABS: Urine Red Blood Cell 0-2 /HPF (0-2); Urine White Cell 0-2 /HPF (0-5)
--- NOTE | 2023-07-24 15:40 | PTCARENOTE ---
Psych at bedside. Ordered IM Zyprexa due to pt restlessness/attempts to remove Albert. IM Zyprexa given. 1:1 observation re-initiated. Pt now resting in bed and no longer making attempts to remove Albert at this time.
--- NOTE | 2023-07-24 21:05 | PTCARENOTE ---
patient continues to put at IVF line and encinas catheter. unable to redirect patient. restless in bed. scheduled Zyprexa given. 1:1 at the bedside. mitts ordered per Aida NAVA.
--- NOTE | 2023-07-24 22:12 | PTCARENOTE ---
report given to Norman ORTIZ on 4W. transferred patient via bed.
[2023-07-25] VITALS (21 sets, daily range): BP systolic 144–219; BP diastolic 90–147; BMI 20.6; BMI 20.1
[2023-07-25] MEDS: ATIVAN 1 MG IV ×4 (01:35→16:25)
[2023-07-25] MEDS: LOPRESSOR 5 MG IV ×2 (02:12→05:31)
[2023-07-25] MEDS: D5/0.45%NSS with KCL 20 MEQ 1000 IV ×3 (03:55→23:18)
[2023-07-25 04:19] LABS: % Basophils 0.2 % (0-2); % Immature Granulocytes 0.7 % (0-0.5); % Lymphocytes 12.2 % (20.5-51.1); % Monocytes 7.5 % (1.7-9.3); % Neutrophils 79.4 % (42.2-75.2); Absolute Immature Granulocytes 0.1 10^3/uL (0-0.05); Absolute Lymphocytes 1.6 10^3/uL (1.2-3.4); Absolute Neutrophils 10.2 10^3/uL (1.4-6.5); Hemoglobin 13.5 g/dL (12.0-16.0); Mean Corp Hgb Conc. 35.5 g/dL (33.0-37.0); Mean Corpuscular Volume 84.4 fL (81.0-99.0); Nucleated Red Blood Cells % 0 %; Platelet Count 217 10^3/uL (130-400); Red Cell Dist. Width 12.6 % (11.5-14.5); White Blood Cell Count 12.9 10^3/uL (4.8-10.8)
[2023-07-25 04:59] LABS: Blood Urea Nitrogen 34 mg/dl (7-17); Carbon Dioxide 25 mmol/L (22-30); Chloride 112 mmol/L (98-107); Estimated Creatinine Clearance 66 ml/min; Glucose 127 mg/dl (70-99); Sodium 148 mmol/L (135-145); eGFR > 60.00
[2023-07-25] MEDS: APRESOLINE 5 MG IV ×2 (05:31→23:20)
--- NOTE | 2023-07-25 07:19 | PTCARENOTE ---
Pt arrived onto floor @2215. AAOx1, anxious and restless in bed. Pt unable to answer questions or follow in conversation, instead keeps calling out 'Tammy.' PRN ativan given, will continue to monitor.
[2023-07-25] MEDS: ZYPREXA 5 MG IM ×2 (08:42→20:11)
[2023-07-25] MEDS: KLOR-CON PO ×2 (08:42→10:05)
[2023-07-25] MEDS: METHADONE 100 MG/10 ML PO ×2 (08:43→11:19)
[2023-07-25] MEDS: STERILE WATER FOR INJECTION 2.10000000000000009 ML IM ×2 (08:44→20:12)
[2023-07-25] MEDS: ZESTRIL PO (08:45)
--- NOTE | 2023-07-25 09:22 | CM ---
Chart reviewed and patient is on 1:1 and mitts, patient is maintained on Methadone. product manager e commerce will follow with patient progress, rn case manager hospice will be unable to place patient at a skilled facility as patient is requiring Methadone.
Plan; To follow with patient progress and assist with discharge planning.
[2023-07-25] MEDS: NSS (PRESERVATIVE FREE) 0.5 ML IV (09:52)
[2023-07-25] MEDS: CATAPRES-TTS-2 0.200000000000000011 MG TRANSDERM (09:52)
[2023-07-25] MEDS: TRANDATE 10 MG IV ×3 (10:07→21:15)
--- NOTE | 2023-07-25 12:28 | PTCARENOTE ---
Pt refusing oral medications. Pt spit methadone out. Wasted dose with Danisha ORTIZ. BP @ 0700- 199/124 despite scheduled Lopressor 5mg and Hydralazine 5mg @ 0530 am (BP then was 208/114)... next scheduled dose of Lopressor was 12pm- Dr. Jauregui
notified. BP meds changed. PRN Ativan and scheduled Labetolol given; a new Clonidine patch ordered/applied (Per Dr. Jauregui- Pt removed patch yesterday- no patch found on Pt). BP @ 1100- 168/101. Dr. Saavedra and Dr. Jauregui notified. Pt to be
TXFR'd to ICU.
--- NOTE | 2023-07-25 12:38 | W.PN.UPDATE ---
Update Note
Progress Note Update
patient seen chart reviewed.discussed with nursing dr jara and with ms messina pharmacist. the patient continues to be in a state of delirium possibly secondary to opiate withdrawal. one to one with her describes that she complained of
abdominal pain ?cramping? she was not particularly diaphoretc goose flesh not noted. pupils did not appear dilated. . she is agitated intermittently. she is moaning constantly. she is spitting out any meds and taking in no food or fluids. her
bp is quite high the top this am 208/114. afebrile pulse is wnl. discussed with aforementioned staff to try iv hydromorphone as per cows to see if that improves her delirium. she had a cat scan on admit which showed no acute findings. if the
hydromorphone does not improve her condition would consider repeat cat scan neuro workup. noted sodium trending up as is bun (dehydration not eating or drinking) unable yesterday to place ng tube will be transferred to more intensive care for
monitoring.
[2023-07-25] MEDS: D5/0.45%NSS with KCL 20 MEQ IV (12:50)
--- NOTE | 2023-07-25 13:44 | W.PN.HOSP.TC ---
Today's Communication/Plan
-
Start IV hydromorphone for opiate withdrawal
Monitor closely in ICU
Continue IV lorazepam and intramuscular Zyprexa
Continue IV fluids
Follow electrolytes
Assessment / Plan
Assessment / Plan
Impression:
Presentation with nausea and vomiting.
Prolonged QTc
Frequent PVCs with bigeminy
Persistent delirium secondary to opiate withdrawal
Opiate use disorder with opiate withdrawal, severe
Non-MA troponin elevation
Hypokalemia
Hypertensive urgency secondary to opiate withdrawal.
Acute urine retention
Conditions prior to admission:
Essential hypertension
Hypothyroidism
Opiate use disorder on methadone former heroin addict.
Bipolar disorder
Chronic hepatitis C.
Plan:
Delirium suspect secondary to opiate withdrawal.
Opiate use disorder, severe with opiate withdrawal
Patient with no oral intake.
Spitting out oral medications.
Was not able to placed NG tube for feeding and medications given patient agitation.
Difficult situation. Given persistent delirium, inability to provide oral medications for patient and severe opioid withdrawal, transition to ICU for close monitoring while initiating IV hydromorphone with titration.
Methadone has been on hold on admission due to QTc prolongation with attempt to reintroduce later
If mental status improves, may resume methadone at reduced dose to 100 mg daily
Continue IV lorazepam.
Continue Zyprexa
History of depression/bipolar disorder. Preadmission medications including bupropion, gabapentin, sertraline has been on hold.
Urinary retention PVR over 800 mL on 07/23
Albert catheter ordered on 07/23 for acute urine retention
Will check urine cultures
Persistent leukocytosis
Afebrile
Remains aspiration risk given mental status.
Recheck urine cultures.
Monitor closely off antibiotics.
Essential hypertension
Hypertensive urgency in the settings of opiate withdrawal.
Continue metoprolol, lisinopril, IV hydralazine
Attempt to add clonidine initially oral later with patch given no oral intake
Prolonged QTc
Improved with IV fluids and electrolyte repletion
Continue cardiac monitoring.
Non-MA troponin elevation
Echo noted with preserved biventricular function.
Hypothyroidism on replacement
Anticipated Discharge: > 48 hours
Subjective/Interval History
-
Date of Service: July 25, 2023
Objective Data
-
Labs:
Laboratory Results
07/25/23
04:07
WBC 12.9 H
Hgb 13.5
Hct 38.0
Plt Count 217
Sodium 148 H
Potassium 3.0 L
Chloride 112 H
Carbon Dioxide 25
BUN 34 H
Creatinine 0.8
Glucose 127 H
Calcium 10.0
Vital Signs:
Vital Signs
Temp Pulse Resp BP Pulse Ox
97.7 F 73 22 168/101 98
07/25/23 11:00 07/25/23 11:00 07/25/23 11:00 07/25/23 11:00 07/25/23 11:00
I&O
07/24/23 07/25/23 07/26/23
06:59 06:59 06:59
Intake Total 480 / 480 700 / 700
Output Total 625 / 625
Balance 480 / 480 75 / 75
Physical Exam
-
General: Well Developed and No Apparent Distress
HEENT: Normocephalic, Atraumatic and Moist Mucous Membranes
Respiratory: Clear to Auscultation
Cardiac: Regular Rhythm and S1/S2; Negative Murmur, Rub or Gallop
GI: Soft, Nontender, Nondistended and Normal Bowel Sounds; Negative Organomegaly
Rectal: Deferred by Provider
Musculoskeletal: No Clubbing, No Cyanosis and No Edema
Skin: Negative Rash
Neuro: Awake, Nonfocal/Grossly Intact and Other (Noncommunicative)
[2023-07-25] MEDS: DILAUDID 0.5 MG IV (13:55)
--- NOTE | 2023-07-25 15:30 | PTCARENOTE ---
Pt TXFR'd to ICU room 3361. Report given to ANGEL Rachel. Pt belonging sent w Pt.
--- NOTE | 2023-07-25 15:57 | CON.INTV ---
Consultation
Consultation Request
Date/Time Consultation Requested: 07/25/2023
Date/Time Consultation Performed: 07/25/2019
Requesting Provider: Dr. Jauregui
Performing Provider: Dr. Donavon Mir
Reason for Consultation: Severe opiate withdrawal
Medical History
-
History of Present Illness:
62-year-old woman with history of prior opiate abuse on methadone, Bipolar disorder, hypothyroidism, hypertension, chronic hepatitis C who initially came to the hospital complaining of nausea and vomiting. Subsequently developed change in mental
status, refusing medications, refusing medical procedures. Patient has not been able to take her methadone while in the hospital. Developed possibly opiate withdrawal.
Given agitation, behavioral issues, not cooperating with medical staff she has been transferred to the critical care unit.
I discussed the case with primary care team, psychiatry recommended IV narcotics. Dilaudid IV [id number] will be started.
Patient will need close hemodynamic monitoring.
Record review.
Patient unable to provide any history.
Past Medical History
Past Medical History: Other (See assessment and plan)
Social History
Tobacco: Other (Unable to obtain)
Personal: Single
Living: Alone
Family History
Family History: Unable to Obtain
Allergies / Home Medications
Allergies
Allergy/AdvReac Type Severity Reaction Status Date / Time
No Known Allergies Allergy Unverified 07/25/23 09:00
Home Medications
�Medication �Instructions �Recorded �Confirmed �Last Taken �Type
Methadone [facility] 345 mg PO DAILY 07/20/23 07/20/23 07/18/23 08:00 History
bupropion HCl 300 mg 24 hr tablet, 300 mg PO DAILY 07/20/23 07/20/23 07/18/23 08:00 History
extended release (Wellbutrin XL)
dicyclomine 10 mg capsule 20 mg PO QIDPRN PRN spasms 07/20/23 07/20/23 07/18/23 08:00 History
gabapentin 400 mg capsule 800 mg PO TID 07/20/23 07/20/23 07/18/23 08:00 History
lansoprazole 30 mg capsule,delayed 30 mg PO DAILY 07/20/23 07/20/23 07/18/23 08:00 History
release
levothyroxine 75 mcg tablet 75 mcg PO DAILY 07/20/23 07/20/23 07/17/23 History
(Synthroid)
lisinopril 10 mg tablet 10 mg PO DAILY 07/20/23 07/20/23 07/18/23 History
metoclopramide HCl 10 mg tablet 10 mg PO DAILYPRN PRN gerd 07/20/23 07/20/23 07/17/23 08:00 History
sertraline 100 mg tablet 200 mg PO DAILY 07/20/23 07/20/23 07/18/23 History
Review of Systems
-
Unable to Obtain full review of systems at this time due to: Acuity
Vitals / Labs / Diagnostic Testing
Vital Signs
Temp Pulse Resp BP Pulse Ox
97.7 F 73 22 168/101 98
07/25/23 11:00 07/25/23 11:00 07/25/23 11:00 07/25/23 11:00 07/25/23 11:00
Lab Data
07/25/23 04:07
07/25/23 04:07
Diagnostic Testing:
Physical Exam
-
HEENT: Normocephalic
Cardiovascular: S1/S2
Respiratory: Non-Labored Respirations
GI: Soft and Non Distended
Neurology: Awake and Other (Not following commands, restless, intermittently agitated. Unable to provide history.)
Skin: Warm
General: Other (Cachectic)
Assessment
-
Altered mental status: Toxic metabolic encephalopathy-possibly opiate withdrawal
Nausea and vomiting: Abdominal x-ray unremarkable
None [place] increased troponin-EKG nonischemic.
Echocardiac: Normal LVEF. No regional motion wall abnormalities.
Hypokalemia
hyponatremia
Conditions present prior admission:
Hypertension
Hypothyroidism
Prior opiate addiction-on methadone
Bipolar disorder
Plan recommendations:
Currently patient remains confused, unable to provide history.
Restless.
Hemodynamically stable, not requiring vasopressors
Continue hemodynamic monitoring
Monitor respiratory status closely particularly with IV Dilaudid
Still unable to take any oral medications as she is refusing
On olanzapine intramuscularly
Room:
Patch
Psychiatry is following the patient
-
N.p.o.
Head of the bed elevation
Aspiration precautions
-
Severe hypokalemia: Will replete aggressively
Repeat BMP at 2100
Monitor QT on telemetry
-
DVT prophylaxis-SCDs
[2023-07-25] MEDS: KCL 270 MEQ IV (16:45)
--- NOTE | 2023-07-25 18:01 | PTCARENOTE ---
received pt from 4th floor , pt awake and oriented to person and place, pt moaning and calling out for Tammy , pt anxious at times , BP 188/95, pt given IV labetalol 10mg as ordered at 16:30 she also had lorazepam for agitation , COWS score is 7,
her BP continues to be elevated now at 1800 207/[address] Velazquez of pts blood pressure elevation
[2023-07-25] MEDS: APRESOLINE 10 MG IV (19:58)
--- NOTE | 2023-07-25 20:30 | PTCARENOTE ---
Received patient in bed, screaming and moaning, calling for 'jane'. AAOx2, disoriented to time, confused, drowsy. Bilateral hand mitts intact, COWS 4. Normal sinus/sinus jaiden, 50s-80s. Hypertensive, 200s/110s, prn hydralazine and scheduled
labetalol given, BP now 140s/90s. Palpable radial and pedal pulses bilaterally. Lung sounds diminished bilaterally in the bases, 96% on room air. Poor appetite, cachectic, refusing clear liquid diet and spitting it out. Albert in place for acute
retention, draining yellow urine. Foam on elbows for protection. Bruising throughout extremities. Right midline patent, WNL, D5 NSS gtt @ 100 mls/hr ongoing. 1:1 with PCT in the room. Call alcocer within reach, safe environment maintained.
[2023-07-25 21:42] LABS: Blood Urea Nitrogen 24 mg/dl (7-17); Calcium 9.5 mg/dl (8.4-10.2); Carbon Dioxide 22 mmol/L (22-30); Chloride 114 mmol/L (98-107); Estimated Creatinine Clearance 74 ml/min; Glucose 144 mg/dl (70-99); Potassium 3.6 mmol/L (3.5-5.1); Sodium 143 mmol/L (135-145); eGFR > 60.00
--- NOTE | 2023-07-25 23:26 | PTCARENOTE ---
Heart rate dropped to the 40s, blood pressure 200s/100s, INSULATION CUPOLA CHARGER notified. Stat hydralazine 5 mg given. Otherwise patient assessment unchanged from previous.
[2023-07-26] VITALS (40 sets, daily range): BP systolic 147–209; BP diastolic 88–144; BMI 20.3
[2023-07-26] MEDS: APRESOLINE 10 MG IV ×2 (00:09→06:04)
--- NOTE | 2023-07-26 00:15 | PTCARENOTE ---
BP 180s/110s despite stat 5 mg of hydralazine, COLLECTION SYSTEMS TECHNICIAN notified. Given PRN 10 mg hydralazine.
[2023-07-26] MEDS: TRANDATE 10 MG IV ×4 (04:47→21:00)
--- NOTE | 2023-07-26 05:03 | PTCARENOTE ---
Labs sent, CHG bath done, partial sheet change.
[2023-07-26 05:14] LABS: % Basophils 0.1 % (0-2); % Eosinophils 0.3 % (0-6); % Immature Granulocytes 0.6 % (0-0.5); % Lymphocytes 14.8 % (20.5-51.1); % Monocytes 5.8 % (1.7-9.3); % Neutrophils 78.4 % (42.2-75.2); Absolute Immature Granulocytes 0.1 10^3/uL (0-0.05); Absolute Lymphocytes 1.8 10^3/uL (1.2-3.4); Absolute Monocytes 0.7 10^3/uL (0.1-0.6); Absolute Neutrophils 9.7 10^3/uL (1.4-6.5); Hematocrit 37.3 % (37.0-47.0); Hemoglobin 12.7 g/dL (12.0-16.0); Mean Corpuscular Hgb 29.5 pg (27.0-31.0); Mean Corpuscular Volume 86.7 fL (81.0-99.0); Mean Platelet Volume 11.4 fL (7.4-10.4); Nucleated Red Blood Cells % 0 %; Platelet Count 193 10^3/uL (130-400); Red Cell Dist. Width 12.7 % (11.5-14.5); White Blood Cell Count 12.4 10^3/uL (4.8-10.8)
[2023-07-26 06:20] LABS: Blood Urea Nitrogen 22 mg/dl (7-17); Calcium 9.3 mg/dl (8.4-10.2); Carbon Dioxide 21 mmol/L (22-30); Chloride 118 mmol/L (98-107); Estimated Creatinine Clearance 75 ml/min; Glucose 144 mg/dl (70-99); Potassium 3.6 mmol/L (3.5-5.1); Sodium 143 mmol/L (135-145); eGFR > 60.00
[2023-07-26] MEDS: METHADONE 100 MG/10 ML PO (07:53)
--- NOTE | 2023-07-26 08:00 | PTCARENOTE ---
Received pt awake and alert.Emotionally labile.Perseverating speech.Oriented to place and person.Intermittently tearful.Asking for her Mommy, then stating that her mother is .Methadone administration explained to pt.Pt stated she was willing
to take Methadone.Pt took both Methadone doses orally, then swished medication and spit both doses on her gown. +CHAVEZ.SR noted.IVF infusing.Lungs CTA.POX 97% on RA.Initially agreeable to po intake, but refusing to swallow po intake including clear
liquid diet.Pt denies sore throat and does swallow her saliva..No BM.Albert draining russ urine.1:1 observation maintained.Plan of care discussed with pt.
[2023-07-26] MEDS: STERILE WATER FOR INJECTION 2.10000000000000009 ML IM (08:07)
[2023-07-26] MEDS: ZYPREXA 5 MG IM (08:07)
[2023-07-26] MEDS: D5/0.45%NSS with KCL 20 MEQ 1000 IV ×2 (08:13→18:42)
[2023-07-26] MEDS: DILAUDID 0.5 MG IV ×2 (10:17→23:57)
--- NOTE | 2023-07-26 10:49 | W.PN.HOSP.TC ---
Today's Communication/Plan
-
Remains noncooperative, refusing medications and vomiting pills including methadone.
Continue aspiration precautions.
Continue Zyprexa, IV hydromorphone
Continue attempts to provide methadone
IV fluids for maintenance
Follow electrolytes
Assessment / Plan
Assessment / Plan
Impression:
Presentation with nausea and vomiting.
Prolonged QTc
Frequent PVCs with bigeminy
Persistent delirium secondary to opiate withdrawal
Opiate use disorder with opiate withdrawal, severe
Non-MT troponin elevation
Hypokalemia
Hypertensive urgency secondary to opiate withdrawal.
Acute urine retention
Conditions prior to admission:
Essential hypertension
Hypothyroidism
Opiate use disorder on methadone former heroin addict.
Bipolar disorder
Chronic hepatitis C.
Plan:
Delirium suspect secondary to opiate withdrawal.
Opiate use disorder, severe with opiate withdrawal
Patient with no oral intake.
Spitting out oral medications.
Was not able to placed NG tube for feeding and medications given patient agitation.
Difficult situation. Given persistent delirium, inability to provide oral medications for patient and severe opioid withdrawal, transition to ICU for close monitoring while initiating IV hydromorphone with titration.
Methadone has been on hold on admission due to QTc prolongation with attempt to reintroduce later
If mental status improves, may resume methadone at reduced dose to 100 mg daily
Continue IV lorazepam.
Continue Zyprexa
History of depression/bipolar disorder. Preadmission medications including bupropion, gabapentin, sertraline has been on hold.
Urinary retention PVR over 800 mL on 07/23
Albert catheter ordered on 07/23 for acute urine retention
Will check urine cultures
Persistent leukocytosis
Afebrile
Remains aspiration risk given mental status.
Recheck urine cultures.
Monitor closely off antibiotics.
Essential hypertension
Hypertensive urgency in the settings of opiate withdrawal.
Continue metoprolol, lisinopril, IV hydralazine
Attempt to add clonidine initially oral later with patch given no oral intake
Prolonged QTc
Improved with IV fluids and electrolyte repletion
Continue cardiac monitoring.
Non-MT troponin elevation
Echo noted with preserved biventricular function.
Hypothyroidism on replacement
Anticipated Discharge: > 48 hours
Subjective/Interval History
-
Date of Service: July 26, 2023
Objective Data
-
Labs:
Laboratory Results
07/26/23
04:51
WBC 12.4 H
Hgb 12.7
Hct 37.3
Plt Count 193
Sodium 143
Potassium 3.6
Chloride 118 H
Carbon Dioxide 21 L
BUN 22 H
Creatinine 0.7
Glucose 144 H
Calcium 9.3
Vital Signs:
Vital Signs
Temp Pulse Resp BP Pulse Ox
97.8 F 71 22 188/108 96
07/26/23 07:30 07/26/23 06:04 07/26/23 06:00 07/26/23 06:04 07/26/23 05:45
I&O
07/25/23 07/26/23 07/27/23
06:59 06:59 06:59
Intake Total 700 / 700 1770.0 / 1870.0 300 / 300
Output Total 625 / 625 800 / 800
Balance 75 / 75 970.0 / 1070.0 300 / 300
Physical Exam
-
General: Well Developed and No Apparent Distress
HEENT: Normocephalic, Atraumatic and Moist Mucous Membranes
Respiratory: Clear to Auscultation
Cardiac: Regular Rhythm and S1/S2; Negative Murmur, Rub or Gallop
GI: Soft, Nontender, Nondistended and Normal Bowel Sounds; Negative Organomegaly
Rectal: Deferred by Provider
Musculoskeletal: No Clubbing, No Cyanosis and No Edema
Skin: Negative Rash
Neuro: Awake, Alert and Nonfocal/Grossly Intact
Psych: Agitated, Anxious and Other (Noncooperative, refusing medications.)
--- NOTE | 2023-07-26 11:18 | W.PN.INTV ---
Today's Communication / Plan
Recommendations
Continue IV Dilaudid
Clonidine patch
Fall precautions
Attempt to get methadone if possible
Maintenance IV fluids
Monitor electrolytes
Assessment
-
Altered mental status: Toxic metabolic encephalopathy-possibly opiate withdrawal
Nausea and vomiting: Abdominal x-ray unremarkable
None [place] increased troponin-EKG nonischemic.
Echocardiac: Normal LVEF. No regional motion wall abnormalities.
Hypokalemia
hyponatremia
Conditions present prior admission:
Hypertension
Hypothyroidism
Prior opiate addiction-on methadone
Bipolar disorder
Plan recommendations:
Continues to be uncooperative, spitting out pills, restless.
Unable to provide history
Hemodynamically stable, not requiring vasopressors
Continue hemodynamic monitoring
Monitor respiratory status closely particularly with IV Dilaudid
Still unable to take any oral medications as she is refusing
-
On olanzapine intramuscularly
Clonidine patch
Continue to attempt to give methadone
Patient refusing to get NG tube placement
Psychiatry is following the patient
-
N.p.o.
Maintenance IV fluids
Daily electrolytes
Head of the bed elevation
Aspiration precautions
-
Severe hypokalemia: Potassium has been corrected
Monitor QT on telemetry
-
DVT prophylaxis-SCDs
Subjective Dataa
Subjective Data
Date of Service:
Date of Service: July 26, 2023
Chief Complaint: Extractor Puller Follow Up (Toxic metabolic encephalopathy, possibly opiate withdrawal)
Subjective:
Uncooperative, unable to provide history
Not taking medication
Restless
Review of Systems
General: Other (Unable to provide due to mental status)
Objective Data
Data Reviewed
Vital Signs / I&O / Oxygen:
Vital Signs
Temp Pulse Resp BP Pulse Ox
97.8 F 65 11 187/104 95
07/26/23 07:30 07/26/23 11:15 07/26/23 11:15 07/26/23 11:01 07/26/23 11:15
Intake and Output
07/25/23 07/26/23 07/27/23
06:59 06:59 06:59
Intake Total 700 / 700 1770.0 / 1870.0 300 / 300
Output Total 625 / 625 800 / 800
Balance 75 / 75 970.0 / 1070.0 300 / 300
SaO2 95
Physical Exam
General: Respiratory Distress (n)
HEENT: Normocephalic
Cardiovascular: S1-S2
Respiratory: Clear and Non-Labored Respirations
GI: Soft and Non Distended
Neurology: Awake and Other (Moving 4 extremities, restless, noncooperative)
Skin: Warm
Labs/Micro/Reports
Lab Data
07/26/23 04:51
07/26/23 04:51
--- NOTE | 2023-07-26 11:56 | W.PN.UPDATE ---
Update Note
Progress Note Update
Pt seen, resting in bed. Pt trying to give answers, but appears confused/disoriented. Voice intermittently clear, then rambling and hard to understand, trails off. Pt refused, then spit out Methadone maintenance the past 2 days, then took it
today. Pt unable to give history, seems to indicate she was compliant with Methadone, then developed N/V. Pt now receiving multiple doses of IV Ativan per day, as well as IM Zyprexa on routine basis. Pt does not show any signs of psychosis or
esperanza. Pt has had confusion and intermittent agitation, but is sedated and calm now. Pt seen drinking some fawn tej, took extended time to swallow it. QTc 453 yesterday 07/24.
Imp: Delirium, with intermittent agitation, now sedated/lethargic on above medications
Opioid dependence, on Methadone maintenance tx; unclear if symptoms are due to withdrawal
Hx of Bipolar d/o; no clear psychiatric symptoms, difficult to fully assess given delirious state
Rec: Change IM Zyprexa 5 mg to po prn med for severe agitation; cannot justify routine dosing of IM route
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
Need to pull back on prn Ativan in combination with Methadone and given delirium, now with sedation
will continue to follow
--- NOTE | 2023-07-26 13:31 | PTCARENOTE ---
Pt assessed.No change in assessment noted.Did eat some water ice.
--- NOTE | 2023-07-26 17:16 | PTCARENOTE ---
Pt assessed.no change in assessment noted.
--- NOTE | 2023-07-26 22:34 | PTCARENOTE ---
Assumed care of pt at 1900. Pt is A/O to person and place, disoriented to time and situation and not able to be reoriented at this time. When asked the month, pt looked at the board in front of her (presumably for clues) and said 'the month
is....plan of cheese...no...the month is plan of care', and thought the year was in the 1960s. Speech is disorganized with flight of ideas and confabulation. Pt is emotionally labile with periods of tearfulness followed immediately by laughing and
smiling. However, pt has been overall pleasant and cooperative with care. No c/o pain or nausea. COWS protocol ongoing. SR 70s-80s on monitor. Spot checking SpO2, was 98% on RA when checked. Pt continues to be hypertensive, received scheduled
Labetalol at 2100 but continues to have systolic in 180s (most recent 180/99)--PRN Hydralazine available for SBP >185. Physical assessment completed, see nursing shift assessment flowsheet for full assessment details. 1:1 sitter at bedside.
[2023-07-27] VITALS (26 sets, daily range): BP systolic 138–213; BP diastolic 88–179; BMI 20.9
--- NOTE | 2023-07-27 00:09 | PTCARENOTE ---
Assessment unchanged. Pt has been talking non stop for this entire shift, continues with flight of ideas and confabulation. Pt asking for her methadone, informed her that it is not due until the morning, COWS assessment done and pt scored 9,
medicated with Dilaudid, see EMAR. SR 70s on monitor. SpO2 98% on RA.
[2023-07-27] MEDS: TRANDATE 10 MG IV ×4 (03:05→21:03)
[2023-07-27] MEDS: TIGAN 200 MG IM (03:12)
[2023-07-27 03:36] LABS: % Basophils 0.1 % (0-2); % Immature Granulocytes 1.8 % (0-0.5); % Lymphocytes 19.9 % (20.5-51.1); % Monocytes 5.9 % (1.7-9.3); % Neutrophils 70.3 % (42.2-75.2); Absolute Eosinophils 0.2 10^3/uL (0-0.7); Absolute Immature Granulocytes 0.2 10^3/uL (0-0.05); Absolute Monocytes 0.6 10^3/uL (0.1-0.6); Hematocrit 30.7 % (37.0-47.0); Mean Corp Hgb Conc. 35.8 g/dL (33.0-37.0); Mean Corpuscular Hgb 30.8 pg (27.0-31.0); Mean Platelet Volume 11.2 fL (7.4-10.4); Nucleated Red Blood Cells % 0 %; Platelet Count 131 10^3/uL (130-400); Red Blood Cell Count 3.57 10^6/uL (4.20-5.40); Red Cell Dist. Width 12.5 % (11.5-14.5)
[2023-07-27 04:04] LABS: Blood Urea Nitrogen 15 mg/dl (7-17); Calcium 8.8 mg/dl (8.4-10.2); Carbon Dioxide 22 mmol/L (22-30); Chloride 112 mmol/L (98-107); Estimated Creatinine Clearance 65 ml/min; Glucose 116 mg/dl (70-99); Potassium 3.5 mmol/L (3.5-5.1); Sodium 141 mmol/L (135-145); eGFR > 60.00
--- NOTE | 2023-07-27 04:26 | PTCARENOTE ---
Assessment unchanged. Pt reporting nausea, medicated with IM Tigan, see EMAR. Scheduled Labetalol dose given around 0300, HR was in high 60s/low 70s at the time of administration, now pt is SB in 50s, dropping into the 40s and briefly to 39 at one
point. 1:1 sitter still at bedside.
[2023-07-27] MEDS: D5/0.45%NSS with KCL 20 MEQ 1000 IV ×2 (05:05→17:37)
[2023-07-27] MEDS: APRESOLINE 10 MG IV ×3 (05:05→23:07)
[2023-07-27] MEDS: METHADONE 100 MG/10 ML PO ×3 (07:54→09:47)
--- NOTE | 2023-07-27 08:03 | PTCARENOTE ---
Addendum entered by Francine Salinas RN 07/27/23 14:31:
0800-Pt assessed.SR noted.IVF infusing.Lungs CTA.POX 95% on RA.Refusing breakfast.No BM.Albert draining yellow urine.1:1 observation maintained.
Original Note:
Received pt awake,anxious rambling speech.Tearful.Was agreeable to take Methadone but then proceeded to spit both doses out onto the bed sheets.Dilaudid given for COWS
[2023-07-27] MEDS: DILAUDID 0.5 MG IV ×2 (08:09→21:03)
--- NOTE | 2023-07-27 10:14 | W.PN.INTV ---
Today's Communication / Plan
Recommendations
Depakote started, hopefully patient will take
Continue clonidine patch
Continue olanzapine as needed
Continue Dilaudid
IV fluids
Aspiration precautions
One-to-one observation
Assessment
-
62-year-old woman with history of hypertension, hypothyroidism, bipolar disorder, anxiety, on methadone. Came to the hospital complaining of abdominal pain, persistent nausea or vomiting. Through the course of the hospital stay patient developed
confusion, agitation. Thought to have opiate withdrawal. Transferred to the critical care unit for behavioral control.
Altered mental status: Toxic metabolic encephalopathy-possibly opiate withdrawal
Nausea and vomiting: Abdominal x-ray unremarkable
None [place] increased troponin-EKG nonischemic.
Echocardiac: Normal LVEF. No regional motion wall abnormalities.
Hypokalemia
hyponatremia
Conditions present prior admission:
Hypertension
Hypothyroidism
Prior opiate addiction-on methadone
Bipolar disorder
Plan recommendations:
Unfortunately, continues to be uncooperative, spitting out pills, restless.
-
Unable to provide history
Hypertensive.
Continue hemodynamic monitoring
Continue labetalol as needed
-
Patient remains on one-to-one observation.
Refusing to take methadone spitting it out
Psychiatry following
Will try to limit lorazepam
Continue clonidine patch
Depakote will be started
Dilaudid as needed ordered
Defer management to psychiatry.
-
On olanzapine intramuscularly as needed
Patient refusing NG tube placement
-
N.p.o.
Maintenance IV fluids
Daily electrolytes
Head of the bed elevation
Aspiration precautions-patient refusing to eat.
-
Severe hypokalemia: Potassium has been corrected
Monitor QT on telemetry
-
DVT prophylaxis-SCDs
-
Maintain ICU level of care, one-to-one observation
Subjective Dataa
Subjective Data
Date of Service:
Date of Service: July 27, 2023
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
Subjective:
Patient is restless, denies any discomfort.
Unable to provide specific history, confused.
Refusing to take medications.
Review of Systems
General: Other ( Unable to obtain due to mental status)
Objective Data
Data Reviewed
Vital Signs / I&O / Oxygen:
Vital Signs
Temp Pulse Resp BP Pulse Ox
99.4 F 78 21 157/88 98
07/27/23 07:27 07/27/23 06:00 07/27/23 06:00 07/27/23 06:00 07/27/23 00:00
Intake and Output
07/26/23 07/27/23 07/28/23
06:59 06:59 06:59
Intake Total 1770.0 / 1870.0 2535 / 2535
Output Total 800 / 800 1250 / 1250
Balance 970.0 / 1070.0 1285 / 1285
SaO2 98
Physical Exam
General: Respiratory Distress (n)
HEENT: Normocephalic
Cardiovascular: S1-S2
Respiratory: Clear and Non-Labored Respirations
GI: Soft and Non Distended
Neurology: Awake and Other (Patient is restless, confused, unable to provide detailed history.)
Skin: Warm
Labs/Micro/Reports
Lab Data
07/27/23 03:20
07/27/23 03:20
--- NOTE | 2023-07-27 10:28 | W.PN.UPDATE ---
Update Note
Progress Note Update
Pt seen, reviewed with nursing staff. Pt more alert, talkative, now more tangential and pressured. Thought disorganized, not able to give relevant answers to questions, keeps repeating 'methadone', and tangential responses for most answers. Could
not obtain any further psych history. Pt stating she knows me and the med sitter. No agitation or aggression. Nursing reports pt was up most of the night talking. She continues to refuse po intake. Pt gargled and spit out Methadone this
morning, despite being told repeatedly what it was. BP continues to be very high, although pt does not appear to have signs of severe opioid withdrawal. Pt's compliance with Methadone prior to admission is unclear; reportedly prescribed an
extremely high dose. Pt was reportedly on Gabapentin high dose as mood-stabilizer prior to admission. QTc improved, 453 on EKG 07/24.
Imp: Delirium, with intermittent agitation; pt more alert now, still disoriented, spitting out Methadone
Opioid dependence, on Methadone maintenance tx; unclear if symptoms are due to withdrawal
Hx of Bipolar d/o, appears more manicky now, continues to be difficult to fully assess given confused state
Rec: Will try adding Depakote; will change to IV Depakene if po refused. Will check TSH
Continue Zyprexa Zydis and IV Ativan as prn's if agitation recurs
will follow
--- NOTE | 2023-07-27 11:06 | W.PN.HOSP.TC ---
Today's Communication/Plan
-
Management of opiate withdrawal
Continue IV hydromorphone
Agree with addition of Depakote
Monitor oral intake
Continue IV fluid maintenance
Follow electrolytes.
Assessment / Plan
Assessment / Plan
Impression:
Presentation with nausea and vomiting.
Prolonged QTc
Frequent PVCs with bigeminy
Persistent delirium secondary to opiate withdrawal
Opiate use disorder with opiate withdrawal, severe
Non-RI troponin elevation
Hypokalemia
Hypertensive urgency secondary to opiate withdrawal.
Acute urine retention
Conditions prior to admission:
Essential hypertension
Hypothyroidism
Opiate use disorder on methadone former heroin addict.
Bipolar disorder
Chronic hepatitis C.
Plan:
Delirium suspect secondary to opiate withdrawal.
Opiate use disorder, severe with opiate withdrawal
Patient with no oral intake.
Spitting out oral medications.
Was not able to placed NG tube for feeding and medications given patient agitation.
Difficult situation. Given persistent delirium, inability to provide oral medications for patient and severe opioid withdrawal, transition to ICU for close monitoring while initiating IV hydromorphone with titration.
Methadone has been on hold on admission due to QTc prolongation with attempt to reintroduce later
If mental status improves, may resume methadone at reduced dose to 100 mg daily
Continue IV lorazepam.
Continue Zyprexa changed to as needed
Added Depakote oral. If not able to take p.o., will change to IV
History of depression/bipolar disorder. Preadmission medications including bupropion, gabapentin, sertraline has been on hold.
Urinary retention PVR over 800 mL on 07/23
Albert catheter ordered on 07/23 for acute urine retention
Will check urine cultures
Persistent leukocytosis improved.
Afebrile
Remains aspiration risk given mental status.
Essential hypertension
Hypertensive urgency in the settings of opiate withdrawal.
Continue metoprolol, lisinopril, IV hydralazine
Attempt to add clonidine initially oral later with patch given no oral intake
Prolonged QTc
Improved with IV fluids and electrolyte repletion
Continue cardiac monitoring.
Non-RI troponin elevation
Echo noted with preserved biventricular function.
Hypothyroidism on replacement
Anticipated Discharge: > 48 hours
Subjective/Interval History
-
Date of Service: July 27, 2023
Objective Data
-
Labs:
Laboratory Results
07/27/23
03:20
WBC 10.0
Hgb 11.0 L
Hct 30.7 L
Plt Count 131 D
Sodium 141
Potassium 3.5
Chloride 112 H
Carbon Dioxide 22
BUN 15
Creatinine 0.8
Glucose 116 H
Calcium 8.8
Vital Signs:
Vital Signs
Temp Pulse Resp BP Pulse Ox
99.4 F 85 21 183/112 98
07/27/23 07:27 07/27/23 10:16 07/27/23 06:00 07/27/23 10:16 07/27/23 00:00
I&O
07/26/23 07/27/23 07/28/23
06:59 06:59 06:59
Intake Total 1770.0 / 1870.0 2535 / 2535
Output Total 800 / 800 1250 / 1250
Balance 970.0 / 1070.0 1285 / 1285
Physical Exam
-
General: Well Developed and No Apparent Distress
HEENT: Normocephalic, Atraumatic and Moist Mucous Membranes
Respiratory: Clear to Auscultation
Cardiac: Regular Rhythm and S1/S2; Negative Murmur, Rub or Gallop
GI: Soft, Nontender, Nondistended and Normal Bowel Sounds; Negative Organomegaly
Rectal: Deferred by Provider
Musculoskeletal: No Clubbing, No Cyanosis and No Edema
Skin: Negative Rash
Neuro: Awake, Alert, Oriented, AO x 3 (Name only) and Nonfocal/Grossly Intact
[2023-07-27] MEDS: DEPAKOTE (12 HR RELEASE) 250 MG PO ×3 (11:42→21:03)
--- NOTE | 2023-07-27 12:00 | PTCARENOTE ---
No change in assessment noted.Speech remains rushes and disorganized.Denies pain.Pt's sister at bedside.She reports that pt's mental status has vastly improved since admission.1:1 observation for pt safety maintained.
--- NOTE | 2023-07-27 16:18 | PTCARENOTE ---
Pt assessed.No change in assessment noted.Pt sleeping.Nursing 1:1 discontinued.Pt awakens to voice and is calm.Taking po medication without difficulty.
--- NOTE | 2023-07-27 21:47 | PTCARENOTE ---
Assumed care of pt at 1900. Pt is alert to self only, unable to reorient, speech is disorganized and pt stammers frequently. Calling anyone who comes into the room by the name 'Tammy'. Pt has been very tearful, stating that she feels 'so sick'. COWS
score = 8, medicated with Dilaudid, see EMAR. SR 60s-70s on monitor. Pt incontinent of large amount of loose stool, complete soap and water bed bath done and all linens changed. Pt was too delirious to cooperate fully, curled up in position
and stating that she wants her mom and dad, and 'I'm just a baby!' Able to take po Depakote without any issues with sips of water. Pt covered with warm blankets after being cleaned up, now resting with eyes closed although she is continuously
talking to herself. Bed alarm activated.
[2023-07-28] VITALS (18 sets, daily range): BP systolic 117–181; BP diastolic 73–123; BMI 20.6
--- NOTE | 2023-07-28 00:30 | PTCARENOTE ---
Midnight assessment unchanged. Pt yelling out for Tammy and having full-blown conversations with no one in the room. SR 60s-70s on monitor.
[2023-07-28] MEDS: D5/0.45%NSS with KCL 20 MEQ 1000 IV ×3 (01:05→20:29)
[2023-07-28] MEDS: TRANDATE 10 MG IV ×4 (03:36→21:10)
[2023-07-28 04:00] LABS: Hematocrit 30.5 % (37.0-47.0); Hemoglobin 10.8 g/dL (12.0-16.0); Mean Corp Hgb Conc. 35.4 g/dL (33.0-37.0); Mean Corpuscular Hgb 30.3 pg (27.0-31.0); Mean Corpuscular Volume 85.4 fL (81.0-99.0); Mean Platelet Volume 11.9 fL (7.4-10.4); Platelet Count 153 10^3/uL (130-400); Red Blood Cell Count 3.57 10^6/uL (4.20-5.40); Red Cell Dist. Width 12.4 % (11.5-14.5); White Blood Cell Count 13.9 10^3/uL (4.8-10.8)
[2023-07-28 04:07] LABS: Blood Urea Nitrogen 13 mg/dl (7-17); Calcium 8.6 mg/dl (8.4-10.2); Carbon Dioxide 21 mmol/L (22-30); Chloride 110 mmol/L (98-107); Estimated Creatinine Clearance 67 ml/min; Glucose 113 mg/dl (70-99); Magnesium 1.3 mg/dl (1.6-2.3); Potassium 3.8 mmol/L (3.5-5.1); Sodium 135 mmol/L (135-145); eGFR > 60.00
[2023-07-28 04:37] LABS: TSH 1.14 uIU/ml (0.47-4.68)
--- NOTE | 2023-07-28 05:09 | PTCARENOTE ---
Assessment unchanged. Pt did sleep for a few hours. Then was incontinent of large amount of loose stool which ended up on her mitts and feet as well. Pt cleaned with soap and water--this took 4 people as pt did not understand what was going on and
was curled up in the position or lithotomy position and wouldn't follow directions. Continuously calling out for Tammy, and then Arnulfo. COWS score 11, medicated with PRN Dilaudid, see EMAR. Mag repletion ordered based off AM labs. SR
60s-70s on monitor.
[2023-07-28] MEDS: MAGNESIUM SULFATE 50 IV (05:15)
[2023-07-28] MEDS: DILAUDID 0.5 MG IV (05:15)
--- NOTE | 2023-07-28 07:20 | W.PN.INTV ---
Today's Communication / Plan
Recommendations
Restart levothyroxine, lisinopril
Continue methadone
IV labetalol as needed
Advance diet as able
Follow hemoglobin
Add DVT prophylaxis, pharmacological
For transfer out of ICU. We will sign off. Please call with questions
Assessment
-
62-year-old woman with history of hypertension, hypothyroidism, bipolar disorder, anxiety, on methadone. Came to the hospital complaining of abdominal pain, persistent nausea or vomiting. Through the course of the hospital stay patient developed
confusion, agitation. Thought to have opiate withdrawal. Transferred to the critical care unit for behavioral control.
Altered mental status: Toxic metabolic encephalopathy-possibly opiate withdrawal
Nausea and vomiting: Abdominal x-ray unremarkable
None [place] increased troponin-EKG nonischemic.
Echocardiac: Normal LVEF. No regional motion wall abnormalities.
Hypokalemia
hyponatremia
Conditions present prior admission:
Hypertension
Hypothyroidism
Prior opiate addiction-on methadone
Bipolar disorder
Plan recommendations:
Presently, patient appears to be comfortable, does spontaneously move extremities
Does not answer questions, follow commands consistently
Blood pressure noted
Received magnesium this morning
Urine output adequate
Remains on IV fluids with potassium
Moving forward
Continue with supportive care
Attempt to restart outpatient meds, specifically levothyroxine, lisinopril
Hopefully patient able to take p.o.
Unfortunately, throughout hospital stay, patient intermittently uncooperative, spitting out pills, restless.
Labetalol IV as needed
Psychiatry following
Will try to limit lorazepam
Continue clonidine patch
Depakote will be started
Dilaudid as needed ordered
Defer management to psychiatry
Continue methadone
On olanzapine intramuscularly as needed
Patient refusing NG tube placement
N.p.o.
Maintenance IV fluids
Daily electrolytes
Head of the bed elevation
Aspiration precautions-patient refusing to eat.
Severe hypokalemia: Potassium has been corrected
Monitor QT on telemetry
DVT prophylaxis-SCDs. Will add Lovenox
GI prophylaxis: Not indicated
Attempted contact cousin who is only family member to help make decisions
Strongly consider addressing CODE STATUS
For transfer out of ICU. We will sign off. Please call with questions
Subjective Dataa
Subjective Data
Date of Service:
Date of Service: July 28, 2023
Chief Complaint: [employer] Manager Follow Up (Toxic metabolic encephalopathy, possibly opiate withdrawal)
Subjective:
Patient lethargic but appears comfortable. Hypertension noted. Received magnesium this morning. Unfortunate remains noncompliant as outpatient, spitting medications out intermittently over the last few days
Objective Data
Data Reviewed
Vital Signs / I&O / Oxygen:
Vital Signs
Temp Pulse Resp BP Pulse Ox
99.6 F 76 20 133/76 95
07/27/23 23:30 07/28/23 06:00 07/28/23 06:00 07/28/23 06:00 07/28/23 00:00
Intake and Output
07/27/23 07/28/23 07/29/23
06:59 06:59 06:59
Intake Total 2535 / 2635 2830 / 2830
Output Total 1250 / 1250 1300 / 1300
Balance 1285 / 1385 1530 / 1530
SaO2 95
Physical Exam
General: Comfortable (Lethargic but spontaneously moving)
HEENT: Normocephalic and Anicteric
Cardiovascular: S1-S2, Regular Rhythm, Murmur (n), Rub (n) and Peripheral Edema (n)
Respiratory: Clear, Wheeze (n), Crackles (n), Rhonchi (n) and Non-Labored Respirations
GI: Soft, Non Distended and Non Tender
Neurology: Lethargic (Arousable, moves extremities) and Other (Does not follow commands)
Skin: Cyanosis (n), Jaundice (n) and Rash (n)
Labs/Micro/Reports
Lab Data
07/28/23 03:33
07/28/23 03:33
[2023-07-28] MEDS: KCL 20 MEQ PO (07:45)
[2023-07-28] MEDS: DEPAKOTE (12 HR RELEASE) 250 MG PO ×2 (07:45→21:10)
[2023-07-28] MEDS: METHADONE 100 MG/10 ML 200 MG PO (07:45)
--- NOTE | 2023-07-28 08:00 | PTCARENOTE ---
Received PT in bed, drowsy but awakens to verbal command, PT disoriented to time and place, pleasant, but cautious, removed 1 mitt PT did successfully take all oral meds today, SB, + pulses nom edema, room air, 95% CTA, diminished bases, abdomen
soft NT, hypoactive BS, PT due to void by 1100, right midline, flushed, patent, + blood return, PT having nonsensical conversations, at time inappropriate, easily to redirect
[2023-07-28] MEDS: ZESTRIL 10 MG PO (10:04)
[2023-07-28] MEDS: SYNTHROID 75 MCG PO (10:04)
--- NOTE | 2023-07-28 11:00 | W.PN.HOSP.TC ---
Today's Communication/Plan
-
Continue methadone
Continue Depakote
Advance diet
Wean off IV fluids if sufficient oral intake
Voiding trial.
Transfer to telemetry
Assessment / Plan
Assessment / Plan
Impression:
Presentation with nausea and vomiting.
Prolonged QTc
Frequent PVCs with bigeminy
Persistent delirium secondary to opiate withdrawal
Opiate use disorder with opiate withdrawal, severe
Non-[place] troponin elevation
Hypokalemia
Hypertensive urgency secondary to opiate withdrawal.
Acute urine retention
Conditions prior to admission:
Essential hypertension
Hypothyroidism
Opiate use disorder on methadone former heroin addict.
Bipolar disorder
Chronic hepatitis C.
Plan:
Delirium suspect secondary to opiate withdrawal.
Opiate use disorder, severe with opiate withdrawal
Patient with no oral intake.
Spitting out oral medications.
Was not able to placed NG tube for feeding and medications given patient agitation.
Difficult situation. Given persistent delirium, inability to provide oral medications for patient and severe opioid withdrawal, transition to ICU for close monitoring while initiating IV hydromorphone with titration.
Methadone has been on hold on admission due to QTc prolongation with attempt to reintroduce later
Mental status improved today on 07/27.
Patient was able to take her methadone
Continue Depakote
Continue IV lorazepam as needed for agitation
Stop Zyprexa
Urinary retention PVR over 800 mL on 07/23
Albert catheter ordered on 07/23 for acute urine retention
Urinalysis not suggestive of UTI.
Voiding trial on 07/27
Persistent leukocytosis, although afebrile
Monitor closely off antibiotics.
Essential hypertension
Hypertensive urgency in the settings of opiate withdrawal.
Continue metoprolol, lisinopril, IV hydralazine
Attempt to add clonidine initially oral later with patch given no oral intake
Prolonged QTc
Improved with IV fluids and electrolyte repletion
Continue cardiac monitoring.
Non-MA troponin elevation
Echo noted with preserved biventricular function.
Hypothyroidism on replacement
Anticipated Discharge: > 48 hours
Subjective/Interval History
-
Date of Service: July 28, 2023
Objective Data
-
Labs:
Laboratory Results
07/28/23
03:33
WBC 13.9 H
Hgb 10.8 L
Hct 30.5 L
Plt Count 153
Sodium 135
Potassium 3.8
Chloride 110 H
Carbon Dioxide 21 L
BUN 13
Creatinine 0.8
Glucose 113 H
Calcium 8.6
Vital Signs:
Vital Signs
Temp Pulse Resp BP Pulse Ox
99.6 F 62 20 156/96 95
07/28/23 07:55 07/28/23 10:05 07/28/23 06:00 07/28/23 10:05 07/28/23 09:00
I&O
07/27/23 07/28/23 07/29/23
06:59 06:59 06:59
Intake Total 2535 / 2635 2830 / 2930 400 / 400
Output Total 1250 / 1250 1300 / 1300
Balance 1285 / 1385 1530 / 1630 400 / 400
Physical Exam
-
General: Well Developed and No Apparent Distress
HEENT: Normocephalic, Atraumatic and Moist Mucous Membranes
Respiratory: Clear to Auscultation
Cardiac: Regular Rhythm and S1/S2; Negative Murmur, Rub or Gallop
GI: Soft, Nontender, Nondistended and Normal Bowel Sounds; Negative Organomegaly
Rectal: Deferred by Provider
Musculoskeletal: No Clubbing, No Cyanosis and No Edema
Skin: Negative Rash
Neuro: Awake, Alert, Oriented and Nonfocal/Grossly Intact
--- NOTE | 2023-07-28 11:21 | W.PN.UPDATE ---
Update Note
Progress Note Update
Pt seen, chart reviewed. Pt now taking oral meds, today took methadone for first time since 07/22. Pt alert, calm, cooperative, though speech/thought continue to be rambling, tangential and nonsensical. Pt oriented to self and [facility];
avoid answering any other orientation questions. Baseline mental state is unknown. Pt able to talk about being on Methadone maintenance; admits using MJ recently to help her ongoing stomach problems- pt not able to specify or give clear history.
No agitation; Zyprexa prn was stopped- had not been given. Pt has not required prn Ativan. No signs of distress. TSH WNL.
Imp: Delirium, with intermittent agitation, resolving. Pt alert and calm now, still disoriented, may have underlying cognitive impairment
Opioid dependence, on long-term Methadone maintenance tx; unclear if presenting symptoms due to withdrawal, now taking reduced dose
Hx of Bipolar d/o, appears mildly hypomanic, continues to be difficult to fully assess given disoriented state
Rec: Continue Depakote for mood d/o, no apparent side effects
Continue IV Ativan prn if any agitation recurs
Return to Outpatient treatment/ Methadone program when medically stable
will follow
--- NOTE | 2023-07-28 12:58 | PTCARENOTE ---
Report given to Masood RN, answered all questions, PT and all belongings transferred to [id number], updating sister by phone
--- NOTE | 2023-07-28 12:59 | CM ---
CM following re: discharge planning.
Discussed in rounds, reviewed pt's chart, met with pt. per Rounds meeting, pt will be downgraded from ICU level of care.
From CM notes, pt lives alone in an apartment with twelve steps to enter and is independent with ambulation and ADL, no DME. pt gets her methadone at [place] , ([phone]) and a friend drives her to get her methadone.
PT and OT will evaluate the pt to determine a level of care at discharge. If SNF is recommended, it will be a challenging process to place patient to a skilled facility as patient is requiring Methadone.
D/C plan: home with anticipated VN services and resumptions of methadone treatment therapy at [facility].
CM will follow with discharge plan updates as hospitalization progresses
[2023-07-28] MEDS: ATIVAN 1 MG IV (13:13)
--- NOTE | 2023-07-28 14:22 | PTCARENOTE ---
Received patient from ICU on room air, initially calm and following commands. Some episodes of manic attacks noted almost immediately after being situated (yelling/attempts to get out of bed/pulling at gown and leads). Medsitter in room, bed alarm
active and IV Ativan administered. notified and requested an order for mittens to be renewed. Patient settling down at the moment. Will continue to monitor.
--- NOTE | 2023-07-28 16:29 | PTCARENOTE ---
Patient's sister (Nancy) called to get an update.
[2023-07-28] MEDS: DEPAKOTE (12 HR RELEASE) PO (18:20)
[2023-07-28] MEDS: LOVENOX 40 MG SC (18:36)
[2023-07-29] VITALS (7 sets, daily range): BP systolic 141–174; BP diastolic 77–88; PULSE 60; O2SAT 99; BMI 21.2
[2023-07-29] MEDS: TIGAN 200 MG IM (00:04)
[2023-07-29] MEDS: TRANDATE 10 MG IV ×4 (05:07→21:48)
[2023-07-29 05:34] LABS: % Basophils 0.3 % (0-2); % Eosinophils 2.2 % (0-6); % Immature Granulocytes 1.9 % (0-0.5); % Lymphocytes 28.3 % (20.5-51.1); % Monocytes 7.1 % (1.7-9.3); % Neutrophils 60.2 % (42.2-75.2); Absolute Eosinophils 0.2 10^3/uL (0-0.7); Absolute Immature Granulocytes 0.2 10^3/uL (0-0.05); Absolute Monocytes 0.8 10^3/uL (0.1-0.6); Absolute Neutrophils 6.5 10^3/uL (1.4-6.5); Hematocrit 27.8 % (37.0-47.0); Hemoglobin 9.7 g/dL (12.0-16.0); Mean Corp Hgb Conc. 34.9 g/dL (33.0-37.0); Mean Corpuscular Hgb 30.5 pg (27.0-31.0); Mean Corpuscular Volume 87.4 fL (81.0-99.0); Nucleated Red Blood Cells % 0 %; Platelet Count 158 10^3/uL (130-400); Red Blood Cell Count 3.18 10^6/uL (4.20-5.40); Red Cell Dist. Width 12.6 % (11.5-14.5); White Blood Cell Count 10.7 10^3/uL (4.8-10.8)
[2023-07-29 05:55] LABS: Blood Urea Nitrogen 13 mg/dl (7-17); Calcium 8.9 mg/dl (8.4-10.2); Carbon Dioxide 22 mmol/L (22-30); Chloride 110 mmol/L (98-107); Estimated Creatinine Clearance 60 ml/min; Glucose 92 mg/dl (70-99); Potassium 3.7 mmol/L (3.5-5.1); Sodium 138 mmol/L (135-145); eGFR > 60.00
[2023-07-29] MEDS: SYNTHROID 75 MCG PO (06:39)
[2023-07-29] MEDS: D5/0.45%NSS with KCL 20 MEQ 1000 IV ×2 (06:39→16:11)
[2023-07-29] MEDS: DEPAKOTE (12 HR RELEASE) 250 MG PO ×3 (09:04→21:48)
[2023-07-29] MEDS: PROTONIX 40 MG PO (09:04)
[2023-07-29] MEDS: ZESTRIL 10 MG PO (09:07)
[2023-07-29] MEDS: METHADONE 100 MG/10 ML 200 MG PO (09:07)
--- NOTE | 2023-07-29 10:24 | W.PN.UPDATE ---
Update Note
Progress Note Update
Patient seen at bedside, chart reviewed, discussed with staff. Patient is much less agitated than previously but remains confused. Baseline unknown. Patient did know she was in the hospital, when asked if she knew the year she answered 'yes, brown
hair '. I asked who she lived with and at first she told me her parents, then said 'no they already'. I asked if she knew the President and she told me ' my dad'. I tried to ask how she cared for herself at home, I asked if she makes her meals
and she paused and then asked me for 'tight ice', I ask if she can bathe herself and she answered 'it is very important I get this handled, I was just too sick'. She remained calm and pleasant. She appeared to pause as if she lost her train of
thought as we were discussing her breakfast tray and then would begin to talk about something not related. She is now taking her oral medications without any issues.m Methadone has been reinitiated. She denies current GI symptoms. It does not
appear she ate any of her breakfast and she tells me she is done with it. While again, baseline cognition os unknown, I am concerned that if she is not improving cognitively in the next day or so, she may not able to safely care for herself at
home. Case management following.
Impression/Plan: Delirium, with intermittent agitation, resolving but remains disoriented, unknown if underlying cognitive impairment - Ativan available for agitation as needed, last dose administered yesterday; Opioid dependence, on long-term
Methadone maintenance, presenting symptoms thought to have been related to withdrawal symptoms. Methadone has been resumed at a reduced dose and would continue, 2 doses now given with no apparent side effects, QTC on 07/24; Bipolar disorder by
history, difficult to assess at this time related to disorientation - Continue Depakote, no apparent side effects noted, Wellbutrin, Gabapentin, and Zoloft have been discontinued.
--- NOTE | 2023-07-29 14:32 | PTCARENOTE ---
Addendum entered by Caroline Landon RN 07/29/23 17:48:
pt received prn ativan for severe agitation this afternoon. pt was yelling at 'jane' in the room but no one was in the room with said patient. pt extremely irritable and asking for something to calm her down. see MAR for proper charting. pt
adamantly refusing lovenox this evening for this nurse despite education. pt just wants to sleep at this time, she states. pt currently sitting with arms around legs and refuses to relax body in the bed.
Original Note:
pt aaox2, and currently on tele, this AM pt was extremely anxious, tearful and had moments of randomly shouting out. confused conversation at the bedside going from topic to topic with this nurse in a matter of minutes. pt currently sleeping at this
time. pt was compliant and pleasant for this nurse during morning medication pass and took all her medications whole with water.
--- NOTE | 2023-07-29 14:33 | W.PN.HOSP.TC ---
Today's Communication/Plan
-
Mental status improved and close to baseline
Was able to take methadone today.
Continue IV lorazepam as needed for agitation
Continue Depakote.
Diet has been advanced
Monitor oral intake and wean off IV fluids if sufficient.
Physical therapy assessment
Continue blood pressure management with transdermal clonidine and reassess now with reintroduction of preadmission antihypertensive regimen.
Assessment / Plan
Assessment / Plan
Impression:
Presentation with nausea and vomiting.
Prolonged QTc
Frequent PVCs with bigeminy
Persistent delirium secondary to opiate withdrawal
Opiate use disorder with opiate withdrawal, severe
Non-[place] troponin elevation
Hypokalemia
Hypertensive urgency secondary to opiate withdrawal.
Acute urine retention
Conditions prior to admission:
Essential hypertension
Hypothyroidism
Opiate use disorder on methadone former heroin addict.
Bipolar disorder
Chronic hepatitis C.
Plan:
Delirium suspect secondary to opiate withdrawal.
Opiate use disorder, severe with opiate withdrawal
Patient with no oral intake.
Spitting out oral medications.
Was not able to placed NG tube for feeding and medications given patient agitation.
Difficult situation. Given persistent delirium, inability to provide oral medications for patient and severe opioid withdrawal, transition to ICU for close monitoring while initiating IV hydromorphone with titration.
Methadone has been on hold on admission due to QTc prolongation with attempt to reintroduce later
Mental status improved today on 07/27.
Patient was able to take her methadone
Continue Depakote
Continue IV lorazepam as needed for agitation
Stop Zyprexa
Urinary retention PVR over 800 mL on 07/23
Albert catheter ordered on 07/23 for acute urine retention
Urinalysis not suggestive of UTI.
Voiding trial on 07/27
Persistent leukocytosis, although afebrile
Monitor closely off antibiotics.
Essential hypertension
Hypertensive urgency in the settings of opiate withdrawal.
Continue metoprolol, lisinopril, IV hydralazine
Attempt to add clonidine initially oral later with patch given no oral intake
Prolonged QTc
Improved with IV fluids and electrolyte repletion
Continue cardiac monitoring.
Non-[place] troponin elevation
Echo noted with preserved biventricular function.
Hypothyroidism on replacement
Anticipated Discharge: 24 - 48 hours
Subjective/Interval History
-
Date of Service: July 29, 2023
Objective Data
-
Labs:
Laboratory Results
07/29/23
05:01
WBC 10.7
Hgb 9.7 L
Hct 27.8 L
Plt Count 158
Sodium 138
Potassium 3.7
Chloride 110 H
Carbon Dioxide 22
BUN 13
Creatinine 0.9
Glucose 92
Calcium 8.9
Vital Signs:
Vital Signs
Temp Pulse Resp BP Pulse Ox
98.4 F 69 18 162/82 96
07/29/23 07:03 07/29/23 07:03 07/29/23 07:03 07/29/23 09:07 07/29/23 09:23
I&O
07/28/23 07/29/23 07/30/23
06:59 06:59 06:59
Intake Total 2830 / 2930 3360 / 3360
Output Total 1300 / 1300 1080 / 1080
Balance 1530 / 1630 2280 / 2280
Physical Exam
-
General: Well Developed and No Apparent Distress
HEENT: Normocephalic, Atraumatic and Moist Mucous Membranes
Respiratory: Clear to Auscultation
Cardiac: Regular Rhythm and S1/S2; Negative Murmur, Rub or Gallop
GI: Soft, Nontender, Nondistended and Normal Bowel Sounds; Negative Organomegaly
Rectal: Deferred by Provider
Musculoskeletal: No Clubbing, No Cyanosis and No Edema
Skin: Negative Rash
Neuro: Awake, Alert, Oriented and Nonfocal/Grossly Intact
--- NOTE | 2023-07-29 15:12 | CM ---
Patient now on 200mg Methadone daily from 345 mg. PVC'S and bigeminy. Order for PT/OT consults placed today. Will await recommendations. Methadone is a barrier to SNF acceptance.
[2023-07-29] MEDS: BENTYL 20 MG PO ×2 (16:18→21:51)
[2023-07-29] MEDS: ATIVAN 1 MG IV (16:18)
[2023-07-29] MEDS: NSS (PRESERVATIVE FREE) 0.5 ML IV (16:19)
[2023-07-29] MEDS: LOVENOX SC (17:53)
[2023-07-30] MEDS: D5/0.45%NSS with KCL 20 MEQ 1000 IV ×2 (02:20→12:46)
[2023-07-30] MEDS: NSS (PRESERVATIVE FREE) 0.5 ML IV (02:26)
[2023-07-30] MEDS: ATIVAN 1 MG IV (02:26)
[2023-07-30 03:15] VITALS: BP 154/86
--- NOTE | 2023-07-30 03:20 | PTCARENOTE ---
Pt agitated, yelling out for 'Tammy'. Upon entering pt's room, pt states 'I don't know what your problem is with me!'. Pt continued on a tangent, yelling at RN about how 'her message never got delivered to her sister and she never got to say
giovanna to Nancy'. Pt's sister, Nancy, was at pt's bedside last PM until approximately 2029. Reminded pt about her sister's visit yesterday, attempted to reorient pt to her situation. Pt remains oriented x2, anxious and agitated, rambling on
with flight of ideas, yelling at staff. Pt medicated with PRN Ativan, see MAR. Pt remains awake, continues to call out, however, is much calmer with interactions with staff.
[2023-07-30] MEDS: TRANDATE 10 MG IV ×3 (03:48→21:44)
[2023-07-30 04:13] VITALS: BMI 21.5
--- NOTE | 2023-07-30 05:28 | PTCARENOTE ---
Pt continues to call out to staff she needs to use the bathroom. Pt assist x2 to bedside commode, no urine output. 30 minutes later, pt continues to yell out, assisted onto bed gandhi without success. Bladder scanned pt for 480mL, explained bladder
scan and straight cath protocol to pt. Pt again assist x2 to the bedside commode, pt urinated 500mL into bedside commode.
[2023-07-30 06:58] LABS: Blood Urea Nitrogen 7 mg/dl (7-17); Calcium 8.6 mg/dl (8.4-10.2); Carbon Dioxide 22 mmol/L (22-30); Chloride 110 mmol/L (98-107); Estimated Creatinine Clearance 60 ml/min; Glucose 81 mg/dl (70-99); Potassium 3.8 mmol/L (3.5-5.1); Sodium 137 mmol/L (135-145); eGFR > 60.00
[2023-07-30 07:15] VITALS: BP 153/90
[2023-07-30] MEDS: SYNTHROID 75 MCG PO (08:40)
[2023-07-30] MEDS: METHADONE 100 MG/10 ML 200 MG PO (09:37)
[2023-07-30] MEDS: DEPAKOTE (12 HR RELEASE) 250 MG PO ×3 (09:38→21:44)
[2023-07-30] MEDS: PROTONIX 40 MG PO (09:38)
[2023-07-30] MEDS: ZESTRIL 10 MG PO (09:38)
[2023-07-30 11:26] VITALS: BP 156/92
--- NOTE | 2023-07-30 11:29 | W.PN.UPDATE ---
Update Note
Progress Note Update
patient seen chart reviewed. this patient is well known to me. she was last seen by this automobile and property underwriter on friday past. she is notably better in terms of her demeanor. she was quite pleasant but she remains very confused and unable to carry on a logical
goal directed conversation. i spoke at length to her sister. this is a woman who lived by herself.. she cooked for herself cleaned shopped. her cat scan does not look as though she has severe dementia and dementia does not come on so quickly.
sister reports she urinated in her presence and the smell was awful. have ordered ua w reflex to culture. have discussed with dr jara getting a cat scan to rule out neurological events as a cause of mental status change. would ask that PT get
her up as much as possible. will dc bentyl and tigan which are anticholinergic and can contribute to confusion and the period of concern for gi sx from opiate wd is past. will follow
[2023-07-30 11:57] LABS: Urine Albumin Negative (Neg - Trace); Urine Bilirubin Negative (Negative); Urine Character Slightly Cloudy (Clear); Urine Color Yellow; Urine Glucose Negative (Negative); Urine Ketone Negative (Negative); Urine Leukocyte 2+ (Negative); Urine Nitrite Positive (Negative); Urine Occult Blood 1+ (Negative); Urine Urobilinogen Negative (Neg - 1+); Urine pH 6.5 (5.0-9.0)
[2023-07-30 12:06] LABS: Urine Bacteria Many (Negative); Urine Red Blood Cell 0-2 /HPF (0-2); Urine White Cell >100 /HPF (0-5)
--- NOTE | 2023-07-30 15:25 | W.PN.HOSP.TC ---
Today's Communication/Plan
-
Empiric antibiotics treating UTI pending cultures
Repeat CT scan of the head
Assessment / Plan
Assessment / Plan
Impression:
Presentation with nausea and vomiting.
Prolonged QTc
Frequent PVCs with bigeminy
Persistent delirium secondary to opiate withdrawal
Opiate use disorder with opiate withdrawal, severe
Non-[place] troponin elevation
Hypokalemia
Hypertensive urgency secondary to opiate withdrawal.
Acute urine retention
UTI, uncomplicated
Conditions prior to admission:
Essential hypertension
Hypothyroidism
Opiate use disorder on methadone former heroin addict.
Bipolar disorder
Chronic hepatitis C.
Plan:
Delirium suspect secondary to opiate withdrawal.
Opiate use disorder, severe with opiate withdrawal
Patient with no oral intake.
Spitting out oral medications.
Initially, methadone had been on hold on admission due to QTc prolongation with attempt to reintroduce later
Initiated on Depakote.
Mental status improved
Patient was able to take her methadone
Continue Depakote
Continue IV lorazepam as needed for agitation
Off Zyprexa
Improved agitation, although with intermittent confusion
CT scan of the head on 07/19 with no acute abnormalities per
Will monitor neurologic status closely
Repeat CT scan
UTI, uncomplicated
Urinary retention PVR over 800 mL on 07/23
Albert catheter ordered on 07/23 for acute urine retention
Urinalysis not suggestive of UTI at that time.
Voiding trial with Albert catheter removed
On 07/29 remains with urinary symptoms.
Urinalysis suggestive of UTI.
Pending urine culture will start ceftriaxone empirically.
Monitor for recurrent retention.
Persistent leukocytosis, although afebrile
Monitor closely off antibiotics.
Essential hypertension
Hypertensive urgency in the settings of opiate withdrawal.
Continue metoprolol, lisinopril, IV hydralazine
Attempt to add clonidine initially oral later with patch given no oral intake
Prolonged QTc
Improved with IV fluids and electrolyte repletion
Continue cardiac monitoring.
Non-[place] troponin elevation
Echo noted with preserved biventricular function.
Hypothyroidism on replacement
Anticipated Discharge: 24 - 48 hours
Subjective/Interval History
-
Date of Service: July 30, 2023
Objective Data
-
Labs:
Laboratory Results
07/30/23
05:45
Sodium 137
Potassium 3.8
Chloride 110 H
Carbon Dioxide 22
BUN 7
Creatinine 0.9
Glucose 81
Calcium 8.6
Vital Signs:
Vital Signs
Temp Pulse Resp BP Pulse Ox
98.2 F 75 16 156/92 100
07/30/23 11:26 07/30/23 11:26 07/30/23 11:26 07/30/23 11:26 07/30/23 11:26
I&O
07/29/23 07/30/23 07/31/23
06:59 06:59 06:59
Intake Total 3360 / 3360 2940 / 2940
Output Total 1080 / 1080 550 / 550 500 / 500
Balance 2280 / 2280 2390 / 2390 -500 / -500
Physical Exam
-
General: Well Developed and No Apparent Distress
HEENT: Normocephalic, Atraumatic and Moist Mucous Membranes
Respiratory: Clear to Auscultation
Cardiac: Regular Rhythm and S1/S2; Negative Murmur, Rub or Gallop
GI: Soft, Nontender, Nondistended and Normal Bowel Sounds; Negative Organomegaly
Rectal: Deferred by Provider
Musculoskeletal: No Clubbing, No Cyanosis and No Edema
Skin: Negative Rash
Neuro: Nonfocal/Grossly Intact
[2023-07-30 15:48] VITALS: BP 148/82
[2023-07-30] MEDS: STERILE WATER FOR INJECTION 10 ML IV (17:20)
[2023-07-30] MEDS: LOVENOX 40 MG SC (17:20)
[2023-07-30] MEDS: ROCEPHIN 1000 MG IV (17:21)
[2023-07-30] MEDS: TRANDATE IV (17:25)
[2023-07-30 19:19] VITALS: BP 137/76
[2023-07-30 23:37] VITALS: BP 142/75
[2023-07-31 03:13] VITALS: BP 149/79
[2023-07-31] MEDS: TRANDATE 10 MG IV ×4 (04:49→21:35)
[2023-07-31] MEDS: BENTYL 10 MG PO (04:49)
[2023-07-31] MEDS: SYNTHROID 75 MCG PO (05:20)
[2023-07-31 05:42] VITALS: BMI 21.7
[2023-07-31 06:00] VITALS: BMI 21.7
[2023-07-31 07:45] VITALS: BP 149/81
[2023-07-31] MEDS: DEPAKOTE (12 HR RELEASE) 250 MG PO ×3 (09:22→21:35)
[2023-07-31] MEDS: METHADONE 100 MG/10 ML 200 MG PO (09:22)
[2023-07-31] MEDS: PROTONIX 40 MG PO (09:22)
[2023-07-31] MEDS: ZESTRIL 10 MG PO (09:22)
--- NOTE | 2023-07-31 11:24 | W.PN.UPDATE ---
Update Note
Progress Note Update
patient seen chart reviewed. discussed with nursing. the patient continues to improve. she is able to converse to an extent/ she is oriented x3 but still gets confused at times and tends to go off on tangents that are difficult to follow. she no
longer talks about her parents as though they are alive. today she talked about their and told me what year they . she is still rather affectively labile. she will start to cry at times but it seems appropriate to the content of her
thought. will get depakote level in the am. she is using about one ativan prn daily. vital signs better w bp much better although systolics on the high side. will continue to follow the plan is snf. i sppke to cm ..the issue there may be that she
takes methadone which is not often administered at snf. ordering PT consult. will follow
[2023-07-31 11:51] VITALS: BP 162/93
--- NOTE | 2023-07-31 15:42 | CM ---
IV/AB. On Methadone 200mg daily. Therapy recommended STR. Maintenance Methadone is barrier. Liaison for facilities that have accepted Methadone in past has been notified for possible placement. She has referred to . Anticipate that dosage is
too high for acceptance. Will continue to follow therapy recommendations.
[2023-07-31 15:45] VITALS: BP 151/107
[2023-07-31] MEDS: LOVENOX 40 MG SC (16:09)
[2023-07-31] MEDS: ROCEPHIN 1000 MG IV (16:10)
[2023-07-31] MEDS: STERILE WATER FOR INJECTION 10 ML IV (16:10)
--- NOTE | 2023-07-31 16:29 | W.PN.HOSP.TC ---
Today's Communication/Plan
-
Methadone.
Continue Depakote pending level.
Ceftriaxone for UTI.
Physical therapy assessment
Continue current antihypertensive regimen including newly added patch.
Assessment / Plan
Assessment / Plan
Impression:
Presentation with nausea and vomiting.
Prolonged QTc
Frequent PVCs with bigeminy
Persistent delirium secondary to opiate withdrawal
Opiate use disorder with opiate withdrawal, severe
Non-[place] troponin elevation
Hypokalemia
Hypertensive urgency secondary to opiate withdrawal.
Acute urine retention
UTI, uncomplicated
Conditions prior to admission:
Essential hypertension
Hypothyroidism
Opiate use disorder on methadone former heroin addict.
Bipolar disorder
Chronic hepatitis C.
Plan:
Delirium suspect secondary to opiate withdrawal.
Opiate use disorder, severe with opiate withdrawal
Patient with no oral intake.
Spitting out oral medications.
Initially, methadone had been on hold on admission due to QTc prolongation with attempt to reintroduce later
Initiated on Depakote.
Mental status improved
Patient was able to take her methadone
Continue Depakote
Continue IV lorazepam as needed for agitation
Off Zyprexa
Improved agitation, although with intermittent confusion
CT scan of the head on 07/19 with no acute abnormalities per
Will monitor neurologic status closely
Repeat CT scan
UTI, uncomplicated
Urinary retention PVR over 800 mL on 07/23
Albert catheter ordered on 07/23 for acute urine retention
Urinalysis not suggestive of UTI at that time.
Voiding trial with Albert catheter removed
On 07/29 remains with urinary symptoms.
Urinalysis suggestive of UTI.
Preliminary culture with E. coli pending sensitivities
Monitor for recurrent retention.
Persistent leukocytosis, although afebrile
Monitor closely off antibiotics.
Essential hypertension
Hypertensive urgency in the settings of opiate withdrawal.
Continue metoprolol, lisinopril, IV hydralazine
Attempt to add clonidine initially oral later with patch given no oral intake
Prolonged QTc
Improved with IV fluids and electrolyte repletion
Continue cardiac monitoring.
Non-[place] troponin elevation
Echo noted with preserved biventricular function.
Hypothyroidism on replacement
Anticipated Discharge: 24 - 48 hours
Subjective/Interval History
-
Date of Service: July 31, 2023
Objective Data
-
Vital Signs:
Vital Signs
Temp Pulse Resp BP Pulse Ox
97.6 F 84 20 151/107 97
07/31/23 15:45 07/31/23 15:45 07/31/23 15:45 07/31/23 15:45 07/31/23 15:45
I&O
07/30/23 07/31/23 08/01/23
06:59 06:59 06:59
Intake Total 2940 / 2940 1080 / 1080
Output Total 550 / 550 1400 / 1400
Balance 2390 / 2390 -320 / -320
Physical Exam
-
General: Well Developed and No Apparent Distress
HEENT: Normocephalic, Atraumatic and Moist Mucous Membranes
Respiratory: Clear to Auscultation
Cardiac: Regular Rhythm and S1/S2; Negative Murmur, Rub or Gallop
GI: Soft, Nontender, Nondistended and Normal Bowel Sounds; Negative Organomegaly
Rectal: Deferred by Provider
Musculoskeletal: No Clubbing, No Cyanosis and No Edema
Skin: Negative Rash
Neuro: Nonfocal/Grossly Intact
[2023-07-31 19:28] VITALS: BP 136/74
[2023-07-31 23:35] VITALS: BP 132/88
[2023-08-01] VITALS (8 sets, daily range): BP systolic 118–165; BP diastolic 65–90; PULSE 67; O2SAT 98–99; BMI 21.2
[2023-08-01] MEDS: TRANDATE IV (04:29)
[2023-08-01] MEDS: PINK BISMUTH 525 MG PO (05:51)
[2023-08-01] MEDS: SYNTHROID 75 MCG PO (05:51)
[2023-08-01 07:31] LABS: Glucose - Point of Care 71 mg/dl (70-99)
[2023-08-01 08:13] LABS: Glucose - Point of Care 100 mg/dl (70-99)
[2023-08-01] MEDS: PROTONIX 40 MG PO (08:40)
[2023-08-01] MEDS: ZESTRIL 10 MG PO (08:40)
[2023-08-01] MEDS: DEPAKOTE (12 HR RELEASE) 250 MG PO ×3 (08:40→21:09)
[2023-08-01] MEDS: METHADONE 100 MG/10 ML 200 MG PO (08:41)
[2023-08-01] MEDS: TRANDATE 10 MG IV ×3 (10:42→21:12)
[2023-08-01] MEDS: CATAPRES-TTS-2 0.200000000000000011 MG TRANSDERM (10:44)
--- NOTE | 2023-08-01 11:41 | W.PN.UPDATE ---
Update Note
Progress Note Update
patient seen chart reviewed spoke with nursing and with tech caring for ms don. earlier today i am told she was irritated and agitated. when i saw her she had settled. tech reported able to help her w am hygiene. she was chatty with me and
while she has good eye contact and speaks fluidly for the most part she remains at times distracted affectively labile and disorganized. considering treating her as though she is hypomanic. depakote level is still pending. will add a tiny dose of
risperdal to see if it calms lability and increases thought organization. i did discuss this with patient who seemed to understand and is wiling to see if this helps her. would do o.25 mg bid risperdal. psych will follow
[2023-08-01 12:00] LABS: Glucose - Point of Care 78 mg/dl (70-99)
[2023-08-01 13:08] LABS: Depakane 99.5 ug/ml (50.0-120.0)
--- NOTE | 2023-08-01 15:02 | W.PN.HOSP.TC ---
Today's Communication/Plan
-
Psychiatric regimen being adjusted.
Continue IV antibiotics for UTI.
Physical therapy assessment
Assessment / Plan
Assessment / Plan
Impression:
Presentation with nausea and vomiting.
Prolonged QTc
Frequent PVCs with bigeminy
Persistent delirium secondary to opiate withdrawal
Opiate use disorder with opiate withdrawal, severe
Non-[place] troponin elevation
Hypokalemia
Hypertensive urgency secondary to opiate withdrawal.
Acute urine retention
UTI, uncomplicated
Conditions prior to admission:
Essential hypertension
Hypothyroidism
Opiate use disorder on methadone former heroin addict.
Bipolar disorder
Chronic hepatitis C.
Plan:
Delirium suspect secondary to opiate withdrawal.
Opiate use disorder, severe with opiate withdrawal
Patient with no oral intake.
Spitting out oral medications.
Initially, methadone had been on hold on admission due to QTc prolongation with attempt to reintroduce later
Initiated on Depakote.
Mental status improved and patient is more interactive and cooperative with medications.
Patient has been able to administer her medications including methadone
Continue Depakote pending level.
Agree with initiation of Risperdal
Continue IV lorazepam as needed for agitation. Attempt to wean
Has been off Zyprexa
UTI, uncomplicated
Urinary retention PVR over 800 mL on 07/23
Albert catheter ordered on 07/23 for acute urine retention
Urinalysis not suggestive of UTI at that time.
Voiding trial with Albert catheter removed
On 07/29 remains with urinary symptoms.
Urinalysis suggestive of UTI.
Urine culture with sensitive E. coli
Monitor for recurrent retention.
Complete 5-day course of antibiotics.
Essential hypertension
Hypertensive urgency in the settings of opiate withdrawal.
Continue metoprolol, lisinopril, IV hydralazine
Attempt to add clonidine initially oral later with patch given no oral intake
Prolonged QTc
Improved with IV fluids and electrolyte repletion
Continue cardiac monitoring.
Non-[place] troponin elevation
Echo noted with preserved biventricular function.
Hypothyroidism on replacement
Anticipated Discharge: 24 - 48 hours
Subjective/Interval History
-
Date of Service: August 01, 2023
Objective Data
-
Vital Signs:
Vital Signs
Temp Pulse Resp BP Pulse Ox
98.3 F 69 18 141/90 97
08/01/23 10:48 08/01/23 10:48 08/01/23 10:48 08/01/23 10:48 08/01/23 10:48
I&O
07/31/23 08/01/23 08/02/23
06:59 06:59 06:59
Intake Total 1080 / 1080 1140 / 1140
Output Total 1400 / 1400 1775 / 1775
Balance -320 / -320 -635 / -635
Physical Exam
-
General: Well Developed and No Apparent Distress
HEENT: Normocephalic, Atraumatic and Moist Mucous Membranes
Respiratory: Clear to Auscultation
Cardiac: Regular Rhythm and S1/S2; Negative Murmur, Rub or Gallop
GI: Soft, Nontender, Nondistended and Normal Bowel Sounds; Negative Organomegaly
Rectal: Deferred by Provider
Musculoskeletal: No Clubbing, No Cyanosis and No Edema
Skin: Negative Rash
Neuro: Nonfocal/Grossly Intact
--- NOTE | 2023-08-01 15:17 | CM ---
IV/AB and meds continue. Therapy recommendation for SNF. Barrier is Methadone 200mg daily. CM has called potential facilities but no acceptances as yet. Will forward referrals.
[2023-08-01 17:05] LABS: Glucose - Point of Care 75 mg/dl (70-99)
[2023-08-01] MEDS: LOVENOX 40 MG SC (17:13)
[2023-08-01] MEDS: STERILE WATER FOR INJECTION 10 ML IV (17:14)
[2023-08-01] MEDS: ROCEPHIN 1000 MG IV (17:14)
[2023-08-01] MEDS: RISPERDAL 0.25 MG PO (21:09)
[2023-08-01 21:33] LABS: Glucose - Point of Care 105 mg/dl (70-99)
[2023-08-02] MEDS: NSS (PRESERVATIVE FREE) 0.5 ML IV (00:19)
[2023-08-02] MEDS: ATIVAN 1 MG IV (00:19)
[2023-08-02 03:09] VITALS: BP 135/68
[2023-08-02] MEDS: TRANDATE IV ×2 (04:05→10:16)
[2023-08-02] MEDS: SYNTHROID 75 MCG PO (05:26)
[2023-08-02 06:00] VITALS: BMI 20.9
[2023-08-02 07:15] VITALS: BP 127/70
[2023-08-02 08:06] LABS: % Basophils 0.3 % (0-2); % Eosinophils 2.9 % (0-6); % Immature Granulocytes 1.2 % (0-0.5); % Lymphocytes 28.9 % (20.5-51.1); % Monocytes 11.6 % (1.7-9.3); % Neutrophils 55.1 % (42.2-75.2); Absolute Eosinophils 0.1 10^3/uL (0-0.7); Absolute Monocytes 0.4 10^3/uL (0.1-0.6); Absolute Neutrophils 1.9 10^3/uL (1.4-6.5); Hematocrit 23.2 % (37.0-47.0); Mean Corp Hgb Conc. 34.5 g/dL (33.0-37.0); Mean Corpuscular Volume 89.9 fL (81.0-99.0); Mean Platelet Volume 11.1 fL (7.4-10.4); Nucleated Red Blood Cells % 0 %; Platelet Count 175 10^3/uL (130-400); Red Blood Cell Count 2.58 10^6/uL (4.20-5.40); Red Cell Dist. Width 12.5 % (11.5-14.5); White Blood Cell Count 3.5 10^3/uL (4.8-10.8)
[2023-08-02 08:35] LABS: Blood Urea Nitrogen 7 mg/dl (7-17); Calcium 8.1 mg/dl (8.4-10.2); Carbon Dioxide 23 mmol/L (22-30); Chloride 109 mmol/L (98-107); Estimated Creatinine Clearance 60 ml/min; Glucose 86 mg/dl (70-99); Potassium 3.5 mmol/L (3.5-5.1); Sodium 135 mmol/L (135-145); eGFR > 60.00
[2023-08-02] MEDS: RISPERDAL PO (09:55)
--- NOTE | 2023-08-02 09:56 | PTCARENOTE ---
AM dose of risperidone not given. Per Psych Dr. Vega hold am dose due to drowsiness.
[2023-08-02] MEDS: DEPAKOTE (12 HR RELEASE) 250 MG PO ×3 (10:00→21:42)
[2023-08-02] MEDS: ZESTRIL PO (10:00)
[2023-08-02] MEDS: METHADONE 100 MG/10 ML 200 MG PO (10:00)
[2023-08-02] MEDS: PROTONIX 40 MG PO (10:00)
--- NOTE | 2023-08-02 10:11 | W.PN.UPDATE ---
Update Note
Progress Note Update
Psychiatry follow up for bipolar history, presented manic with agitation. Chart reviewed. last seen by Dr. Saavedra yesterday at which time risperdal 0.25mg BID was added to regimen. other medications include depakote 250mg TID, methadone 200mg daily
and ativan 1mg q6 hours PRN. VPA level was 99.0 on 07/31.
At this time patient is lying in bed. She is somnolent but arousable. Spoke with nursing. Patient received first dose of Risperdal last evening and also an ativan PRN overnight. Recommend holding Risperdal this morning and seeing how patient does
during the day. Will then re-evaluate medication regimen and make adjustments to dosing if needed.
--- NOTE | 2023-08-02 11:06 | PTCARENOTE ---
pt throeing up. Mucous/ pinkish color. Methadone is red and was received 0900. Pt ok and complaining of nausea. Dr. Miller notified.
[2023-08-02 11:09] VITALS: BP 175/83
[2023-08-02] MEDS: COMPAZINE 5 MG IV (11:20)
--- NOTE | 2023-08-02 14:42 | W.PN.HOSP.TC ---
Today's Communication/Plan
-
hold Risperdal
continue IV Abx
PT/OT
Assessment / Plan
Assessment / Plan
Impression:
Presentation with nausea and vomiting.
Prolonged QTc
Frequent PVCs with bigeminy
Persistent delirium secondary to opiate withdrawal
Opiate use disorder with opiate withdrawal, severe
Non-[place] troponin elevation
Hypokalemia
Hypertensive urgency secondary to opiate withdrawal.
Acute urine retention
UTI, uncomplicated
Conditions prior to admission:
Essential hypertension
Hypothyroidism
Opiate use disorder on methadone former heroin addict.
Bipolar disorder
Chronic hepatitis C.
Plan:
Delirium suspect secondary to opiate withdrawal.
Opiate use disorder, severe with opiate withdrawal
Patient with no oral intake.
Spitting out oral medications.
Initially, methadone had been on hold on admission due to QTc prolongation with attempt to reintroduce later
Initiated on Depakote.
Mental status improved and patient is more interactive and cooperative with medications.
Patient has been able to administer her medications including methadone
Continue Depakote pending level.
Risperdal initiated 07/31; but now held by psych
Continue IV lorazepam as needed for agitation. Attempt to wean
Has been off Zyprexa
UTI, uncomplicated
Urinary retention PVR over 800 mL on 07/23
Albert catheter ordered on 07/23 for acute urine retention
Urinalysis not suggestive of UTI at that time.
Voiding trial with Albert catheter removed
On 07/29 remains with urinary symptoms.
Urinalysis suggestive of UTI.
Urine culture with sensitive E. coli
Monitor for recurrent retention.
day 3/5 of Rocephin
Essential hypertension
Hypertensive urgency in the settings of opiate withdrawal.
Continue metoprolol, lisinopril, IV hydralazine
continue Clonidine patch
Prolonged QTc
Improved with IV fluids and electrolyte repletion
Continue cardiac monitoring.
Non-IL troponin elevation
Echo noted with preserved biventricular function.
Hypothyroidism on replacement
Anticipated Discharge: > 48 hours
Subjective/Interval History
-
Date of Service: August 02, 2023
Risperdal held today by psych
patient was earlier nauseous - improved with Zofran
Objective Data
-
Labs:
Laboratory Results
08/02/23
07:41
WBC 3.5 L
Hgb 8.0 L
Hct 23.2 L
Plt Count 175
Sodium 135
Potassium 3.5
Chloride 109 H
Carbon Dioxide 23
BUN 7
Creatinine 0.9
Glucose 86
Calcium 8.1 L
Vital Signs:
Vital Signs
Temp Pulse Resp BP Pulse Ox
98.5 F 66 18 175/83 98
08/02/23 11:09 08/02/23 11:09 08/02/23 11:09 08/02/23 11:09 08/02/23 11:09
I&O
08/01/23 08/02/23 08/03/23
06:59 06:59 06:59
Intake Total 1140 / 1140 480 / 480
Output Total 1775 / 1775 1350 / 1350
Balance -635 / -635 -870 / -870
Physical Exam
-
General: Well Developed and Well Nourished
HEENT: Normocephalic and Atraumatic
Respiratory: Clear to Auscultation; Negative Wheezes or Rales
Cardiac: Regular Rhythm and S1/S2
GI: Soft
Genito-urinary: No Costovertebral Tender
Psych: Calm
Data Reviewed
-
Total Time Spent with Patient (in minutes): 37
Labs: Labs Reviewed by me
[2023-08-02 15:10] VITALS: BP 135/73
--- NOTE | 2023-08-02 16:00 | CM ---
Bedside meeting with pt and sister per their request
Pt in receipt of termination letter June 2023 for [facility] for failure to submit annual financials
Encouraged to call for next steps regarding financial verifications vs new application
Educated on [place] vs Medicare benefits
Discharge planning discussed
Aware pt has been denied by approx 35 SNFs
Additional SNF referreal ssnrt to [facility] as they historically have offered methadone
Pt wll require BC auth for SNF
Dtr notes if appropriate SNF cannot be located, she will take pt to her home
Discharge Disposition- SNF
[2023-08-02] MEDS: STERILE WATER FOR INJECTION 10 ML IV (16:56)
[2023-08-02] MEDS: ZESTRIL 10 MG PO (16:56)
[2023-08-02] MEDS: ROCEPHIN 1000 MG IV (16:56)
[2023-08-02] MEDS: TRANDATE 10 MG IV ×2 (16:57→21:43)
[2023-08-02] MEDS: LOVENOX 40 MG SC (18:13)
--- NOTE | 2023-08-02 18:18 | PTCARENOTE ---
Pills found at bedside later this afternoon. Identified as Depakote and risperidone from 210808/01/23. Dr. Miller made aware that patient missed 2108 medications 08/01/23. Continue to hold risperidone will reassess tomorrow 08/03/23.
--- NOTE | 2023-08-02 18:22 | PTCARENOTE ---
Depakote and risperdol from 210808/01/23 med pass wasted with second RN Radha Sinclair
[2023-08-02 19:10] VITALS: BP 136/64
[2023-08-02 23:15] VITALS: BP 116/65
[2023-08-03 03:14] VITALS: BMI 21.0
[2023-08-03 03:18] VITALS: BP 138/69
[2023-08-03] MEDS: TRANDATE IV ×4 (03:48→21:13)
[2023-08-03] MEDS: SYNTHROID 75 MCG PO (06:14)
[2023-08-03 06:16] LABS: Hematocrit 24.4 % (37.0-47.0); Hemoglobin 8.1 g/dL (12.0-16.0); Mean Corp Hgb Conc. 33.2 g/dL (33.0-37.0); Mean Corpuscular Hgb 30.1 pg (27.0-31.0); Mean Corpuscular Volume 90.7 fL (81.0-99.0); Mean Platelet Volume 10.9 fL (7.4-10.4); Platelet Count 161 10^3/uL (130-400); Red Blood Cell Count 2.69 10^6/uL (4.20-5.40); Red Cell Dist. Width 12.9 % (11.5-14.5); White Blood Cell Count 3.7 10^3/uL (4.8-10.8)
[2023-08-03 06:37] LABS: Blood Urea Nitrogen 6 mg/dl (7-17); Calcium 8.7 mg/dl (8.4-10.2); Carbon Dioxide 26 mmol/L (22-30); Chloride 102 mmol/L (98-107); Estimated Creatinine Clearance 67 ml/min; Glucose 110 mg/dl (70-99); Potassium 3.5 mmol/L (3.5-5.1); Sodium 135 mmol/L (135-145); eGFR > 60.00
[2023-08-03 07:15] VITALS: BP 132/70
[2023-08-03] MEDS: DEPAKOTE (12 HR RELEASE) 250 MG PO ×3 (08:30→21:15)
[2023-08-03] MEDS: PROTONIX 40 MG PO (08:31)
[2023-08-03] MEDS: METHADONE 100 MG/10 ML 200 MG PO (08:31)
--- NOTE | 2023-08-03 08:58 | W.PN.HOSP.TC ---
Today's Communication/Plan
-
decrease Ativan dose
hold Risperdal per psych; await todays review
continue Methadone
DC planning
Assessment / Plan
Assessment / Plan
Impression:
Presentation with nausea and vomiting.
Prolonged QTc
Frequent PVCs with bigeminy
Persistent delirium secondary to opiate withdrawal
Opiate use disorder with opiate withdrawal, severe
Non-MS troponin elevation
Hypokalemia
Hypertensive urgency secondary to opiate withdrawal.
Acute urine retention
UTI, uncomplicated
Conditions prior to admission:
Essential hypertension
Hypothyroidism
Opiate use disorder on methadone former heroin addict.
Bipolar disorder
Chronic hepatitis C.
Plan:
Delirium suspect secondary to opiate withdrawal.
Opiate use disorder, severe with opiate withdrawal
Patient with no oral intake.
Spitting out oral medications.
Initially, methadone had been on hold on admission due to QTc prolongation with attempt to reintroduce later
Initiated on Depakote.
Mental status improved and patient is more interactive and cooperative with medications.
Patient has been able to administer her medications including methadone
Continue Depakote pending level.
Risperdal initiated 07/31; but now held by psych for concern of lethargy
Continue IV lorazepam as needed for agitation. Ativan dose decreased to 0.5mg on 08/02
Has been off Zyprexa
UTI, uncomplicated
Urinary retention PVR over 800 mL on 07/23
Albert catheter ordered on 07/23 for acute urine retention
Urinalysis not suggestive of UTI at that time.
Voiding trial with Albert catheter removed
On 07/29 remains with urinary symptoms.
Urinalysis suggestive of UTI.
Urine culture with sensitive E. coli
Monitor for recurrent retention.
day 4/5 of Rocephin
Essential hypertension
Hypertensive urgency in the settings of opiate withdrawal.
Continue metoprolol, lisinopril, IV hydralazine
continue Clonidine patch
Prolonged QTc
Improved with IV fluids and electrolyte repletion
Continue cardiac monitoring.
Non-MS troponin elevation
Echo noted with preserved biventricular function.
Hypothyroidism on replacement
Anticipated Discharge: 24 - 48 hours
Subjective/Interval History
-
Date of Service: August 03, 2023
requesting higher doses of Methadone
more alert today
Objective Data
-
Labs:
Laboratory Results
08/03/23
05:57
WBC 3.7 L
Hgb 8.1 L
Hct 24.4 L
Plt Count 161
Sodium 135
Potassium 3.5
Chloride 102
Carbon Dioxide 26
BUN 6 L
Creatinine 0.8
Glucose 110 H
Calcium 8.7
Vital Signs:
Vital Signs
Temp Pulse Resp BP Pulse Ox
98.5 F 55 18 132/70 97
08/03/23 07:15 08/03/23 07:15 08/03/23 07:15 08/03/23 07:15 08/03/23 07:15
I&O
08/02/23 08/03/23 08/04/23
06:59 06:59 06:59
Intake Total 480 / 480 600 / 600
Output Total 1350 / 1350 75 / 75
Balance -870 / -870 525 / 525
Physical Exam
-
General: No Apparent Distress
HEENT: Normocephalic and Atraumatic
Respiratory: Negative Wheezes
Cardiac: Regular Rhythm
GI: Soft
Genito-urinary: No Costovertebral Tender
Neuro: AO x 3
Hematologic / Lymphatic: No Lymphadenopathy
Psych: Calm
Data Reviewed
-
Total Time Spent with Patient (in minutes): 41
Labs: Labs Reviewed by me
[2023-08-03 11:29] VITALS: BP 152/84
[2023-08-03] MEDS: ROCEPHIN 1000 MG IV (11:47)
[2023-08-03] MEDS: FLUSH (NSS) 1 FLUSH IV ×2 (11:47→15:53)
[2023-08-03] MEDS: STERILE WATER FOR INJECTION 10 ML IV (11:47)
--- NOTE | 2023-08-03 12:00 | W.PN.UPDATE ---
Update Note
Progress Note Update
Psychiatry follow up for bipolar history, presented manic with agitation. Risperdal 0.25mg BID was added on 07/31 to help with agitation/organization. Patient received only one dose evening of 07/31 and was very drowsy yesterday so we held it. Ativan
PRN was lowered to 0.5mg q6h PRN this morning. At this time patient is sitting in her chair and able to cooperate with interview. She reports feeling better and is preoccupied with making sure she continues to receive her methadone. Spoke with
nursing who states patient has been having a good day so far.
MSE- good eye contact. cooperative and pleasant at this time. preoccupied with making sure methadone is continued. Denies SI/HI/AVH.
A/P- patient appears to be doing better overall. will discontinue risperdal order at this time and monitor. if needed can reinitiate. Continue depakote, methadone, and lower ativan PRN dose. Psychiatry will follow.
[2023-08-03 15:15] VITALS: BP 133/75
[2023-08-03] MEDS: ZOFRAN 4 MG IV (15:52)
[2023-08-03] MEDS: LOVENOX 40 MG SC (18:05)
[2023-08-03 19:50] VITALS: BP 121/71
[2023-08-03] MEDS: MOTRIN 200 MG PO (21:34)
[2023-08-03 22:45] VITALS: BP 135/69
[2023-08-04] VITALS (7 sets, daily range): BP systolic 104–163; BP diastolic 58–89; PULSE 64; O2SAT 96; BMI 21.2
[2023-08-04] MEDS: TRANDATE IV ×3 (03:54→22:38)
[2023-08-04] MEDS: SYNTHROID 75 MCG PO (05:44)
[2023-08-04 06:51] LABS: Hematocrit 23.2 % (37.0-47.0); Mean Corp Hgb Conc. 34.5 g/dL (33.0-37.0); Mean Corpuscular Hgb 30.8 pg (27.0-31.0); Mean Corpuscular Volume 89.2 fL (81.0-99.0); Platelet Count 178 10^3/uL (130-400); Red Cell Dist. Width 13.1 % (11.5-14.5)
[2023-08-04 07:13] LABS: Blood Urea Nitrogen 4 mg/dl (7-17); Calcium 8.3 mg/dl (8.4-10.2); Carbon Dioxide 28 mmol/L (22-30); Chloride 106 mmol/L (98-107); Estimated Creatinine Clearance 60 ml/min; Glucose 95 mg/dl (70-99); Potassium 3.6 mmol/L (3.5-5.1); Sodium 135 mmol/L (135-145); eGFR > 60.00
[2023-08-04] MEDS: DEPAKOTE (12 HR RELEASE) 250 MG PO ×3 (08:35→22:35)
[2023-08-04] MEDS: ZESTRIL 10 MG PO (08:35)
[2023-08-04] MEDS: PROTONIX 40 MG PO (08:35)
[2023-08-04] MEDS: METHADONE 100 MG/10 ML 200 MG PO (08:36)
[2023-08-04] MEDS: ZOFRAN 4 MG IV (08:37)
[2023-08-04] MEDS: FLUSH (NSS) 1 FLUSH IV ×3 (08:39→11:17)
[2023-08-04] MEDS: TRANDATE 10 MG IV (11:07)
[2023-08-04] MEDS: STERILE WATER FOR INJECTION 10 ML IV (11:17)
[2023-08-04] MEDS: ROCEPHIN 1000 MG IV (11:17)
--- NOTE | 2023-08-04 14:07 | W.PN.HOSP.TC ---
Today's Communication/Plan
-
Continue methadone
Continue Depakote.
Wean off IV lorazepam.
Complete course of antibiotics for UTI today.
Discharge planning.
Assessment / Plan
Assessment / Plan
Impression:
Presentation with nausea and vomiting.
Prolonged QTc
Frequent PVCs with bigeminy
Persistent delirium secondary to opiate withdrawal
Opiate use disorder with opiate withdrawal, severe
Non-ND troponin elevation
Hypokalemia
Hypertensive urgency secondary to opiate withdrawal.
Acute urine retention
UTI, uncomplicated
Conditions prior to admission:
Essential hypertension
Hypothyroidism
Opiate use disorder on methadone former heroin addict.
Bipolar disorder
Chronic hepatitis C.
Plan:
Delirium suspect secondary to opiate withdrawal.
Opiate use disorder, severe with opiate withdrawal
Patient with no oral intake.
Spitting out oral medications.
Initially, methadone had been on hold on admission due to QTc prolongation with attempt to reintroduce later
Initiated on Depakote.
Mental status improved and patient is more interactive and cooperative with medications.
Patient has been able to administer her medications including methadone
Continue Depakote pending level.
Has been off Risperdal and Zyprexa.
Continue IV lorazepam as needed for agitation. Ativan dose decreased to 0.5mg on 08/02
UTI, uncomplicated
Urinary retention PVR over 800 mL on 07/23
Albert catheter ordered on 07/23 for acute urine retention
Urinalysis not suggestive of UTI at that time.
Voiding trial with Albert catheter removed
On 07/29 remains with urinary symptoms.
Urinalysis suggestive of UTI.
Urine culture with sensitive E. coli
Initiated on ceftriaxone 07/29 to complete 5-day course of therapy through 08/03.
Essential hypertension
Hypertensive urgency in the settings of opiate withdrawal.
Continue metoprolol, lisinopril, IV hydralazine
continue Clonidine patch
Prolonged QTc
Improved with IV fluids and electrolyte repletion
Continue cardiac monitoring.
Non-ND troponin elevation
Echo noted with preserved biventricular function.
Hypothyroidism on replacement
Anticipated Discharge: 24 - 48 hours
Subjective/Interval History
-
Date of Service: August 04, 2023
Objective Data
-
Labs:
Laboratory Results
08/04/23
06:22
WBC 3.0 L
Hgb 8.0 L
Hct 23.2 L
Plt Count 178
Sodium 135
Potassium 3.6
Chloride 106
Carbon Dioxide 28
BUN 4 L
Creatinine 0.9
Glucose 95
Calcium 8.3 L
Vital Signs:
Vital Signs
Temp Pulse Resp BP Pulse Ox
98.1 F 67 16 163/89 96
08/04/23 11:26 08/04/23 11:26 08/04/23 11:26 08/04/23 11:26 08/04/23 11:26
I&O
08/03/23 08/04/23 08/05/23
06:59 06:59 06:59
Intake Total 600 / 600 1440 / 1440
Output Total 75 / 75 1100 / 1100
Balance 525 / 525 340 / 340
Physical Exam
-
General: Well Developed and No Apparent Distress
HEENT: Normocephalic, Atraumatic and Moist Mucous Membranes
Respiratory: Clear to Auscultation
Cardiac: Regular Rhythm and S1/S2; Negative Murmur, Rub or Gallop
GI: Soft, Nontender, Nondistended and Normal Bowel Sounds; Negative Organomegaly
Rectal: Deferred by Provider
Musculoskeletal: No Clubbing, No Cyanosis and No Edema
Skin: Negative Rash
Neuro: Nonfocal/Grossly Intact
[2023-08-04] MEDS: LOVENOX 40 MG SC (17:03)
--- NOTE | 2023-08-04 17:14 | CM ---
Discharge Plan of Care: recommended for SNF. No accepting facility. Methadone Barrier.
[2023-08-04] MEDS: MOTRIN 200 MG PO (21:06)
[2023-08-05] MEDS: ZOFRAN 4 MG IV (01:03)
[2023-08-05 03:28] VITALS: BP 159/81
[2023-08-05] MEDS: TRANDATE IV ×3 (04:37→21:32)
[2023-08-05 05:36] VITALS: BMI 21.2
[2023-08-05] MEDS: SYNTHROID 75 MCG PO (05:58)
[2023-08-05 07:00] VITALS: BP 144/79
[2023-08-05] MEDS: METHADONE 100 MG/10 ML 200 MG PO (08:20)
[2023-08-05] MEDS: PROTONIX 40 MG PO (08:20)
[2023-08-05] MEDS: ZESTRIL 10 MG PO (08:20)
[2023-08-05] MEDS: DEPAKOTE (12 HR RELEASE) 250 MG PO ×3 (08:20→21:32)
--- NOTE | 2023-08-05 10:23 | W.PN.UPDATE ---
Update Note
Progress Note Update
Patient seen sitting up in the chair, preoccupied with cleaning her table and phone. Reviewed chart and discussed with RN. No agitation reported. Patient is calm, oriented x3 however, continues to be labile and disorganized at times. Demands to have
Methadone before allowing any other medications to be administered. I ask her about her daughter (there was a note stating patient may go home with her if no SNF found) and she tells me she does not have a daughter. Then she asks me about the plan
and when I again state she may go to a SNF or could go home with her daughter she says 'oh yea my daughter'. Review of labs showed a 3G decrease in HGB over the last week and I ask if she has noticed any bleeding and she does not seem to understand
what I am asking and changes the subject to ask me how old I am. I am not sure if this has been investigated.
Impression/Plan: Delirium, with intermittent agitation, resolving, unknown if underlying cognitive impairment although it was reported she was independently living and caring for herself prior to admission. She was found to have a UTI which has
been now treated. - Risperdal was trialed but caused excessive sedation and discontinued, Ativan remains available as PRN at 0.5mg q8hrs but does not appear as being needed in over 24 hours ; Opioid dependence, on long-term Methadone maintenance,
presenting symptoms thought to have been related to withdrawal symptoms. Methadone has been resumed at a reduced dose of 200mg daily and would continue, tolerating with no apparent side effects, last QTC on 07/24 453; Bipolar disorder by history -
Continue Depakote at 250mg TID, no apparent side effects noted, VPA level on 07/31 99.5.
Wellbutrin, Gabapentin, and Zoloft have been discontinued with no noted issues.
[2023-08-05] MEDS: TRANDATE 10 MG IV (10:44)
[2023-08-05 15:00] VITALS: BP 167/83
--- NOTE | 2023-08-05 15:49 | CM ---
Discharge Plan of Care: SNF. Referrals forwarded.
[2023-08-05] MEDS: ATIVAN 0.5 MG IV (16:47)
--- NOTE | 2023-08-05 17:06 | W.PN.HOSP.TC ---
Today's Communication/Plan
-
Continue methadone and Depakote
Continue current antihypertensive regimen with addition of transdermal clonidine
Physical therapy assessment with discharge planning accordingly.
Assessment / Plan
Assessment / Plan
Impression:
Presentation with nausea and vomiting.
Prolonged QTc
Frequent PVCs with bigeminy
Persistent delirium secondary to opiate withdrawal
Opiate use disorder with opiate withdrawal, severe
Non-IA troponin elevation
Hypokalemia
Hypertensive urgency secondary to opiate withdrawal.
Acute urine retention
UTI, uncomplicated
Conditions prior to admission:
Essential hypertension
Hypothyroidism
Opiate use disorder on methadone former heroin addict.
Bipolar disorder
Chronic hepatitis C.
Plan:
Delirium suspect secondary to opiate withdrawal.
Opiate use disorder, severe with opiate withdrawal
Patient with no oral intake.
Spitting out oral medications.
Initially, methadone had been on hold on admission due to QTc prolongation with attempt to reintroduce later
Initiated on Depakote.
Mental status improved and patient is more interactive and cooperative with medications.
Patient has been able to administer her medications including methadone
Continue Depakote pending level.
Has been off Risperdal and Zyprexa.
Continue IV lorazepam as needed for agitation. Ativan dose decreased to 0.5mg on 08/02
UTI, uncomplicated
Urinary retention PVR over 800 mL on 07/23
Albert catheter ordered on 07/23 for acute urine retention
Urinalysis not suggestive of UTI at that time.
Voiding trial with Albert catheter removed
On 07/29 remains with urinary symptoms.
Urinalysis suggestive of UTI.
Urine culture with sensitive E. coli
Initiated on ceftriaxone 07/29 to complete 5-day course of therapy through 08/03.
Essential hypertension
Hypertensive urgency in the settings of opiate withdrawal.
Continue metoprolol, lisinopril, IV hydralazine
continue Clonidine patch
Prolonged QTc
Improved with IV fluids and electrolyte repletion
Continue cardiac monitoring.
Non-IA troponin elevation
Echo noted with preserved biventricular function.
Hypothyroidism on replacement
Anticipated Discharge: 24 - 48 hours
Subjective/Interval History
-
Date of Service: August 05, 2023
Objective Data
-
Vital Signs:
Vital Signs
Temp Pulse Resp BP Pulse Ox
98.1 F 58 17 144/78 98
08/05/23 15:00 08/05/23 16:26 08/05/23 15:00 08/05/23 16:26 08/05/23 15:00
I&O
08/04/23 08/05/23 08/06/23
06:59 06:59 06:59
Intake Total 1440 / 1440 1710 / 1710 690 / 690
Output Total 1100 / 1100
Balance 340 / 340 1710 / 1710 690 / 690
Physical Exam
-
General: Well Developed and No Apparent Distress
HEENT: Normocephalic, Atraumatic and Moist Mucous Membranes
Respiratory: Clear to Auscultation
Cardiac: Regular Rhythm and S1/S2; Negative Murmur, Rub or Gallop
GI: Soft, Nontender, Nondistended and Normal Bowel Sounds; Negative Organomegaly
Rectal: Deferred by Provider
Musculoskeletal: No Clubbing, No Cyanosis and No Edema
Skin: Negative Rash
Neuro: Nonfocal/Grossly Intact
[2023-08-05] MEDS: LOVENOX 40 MG SC (18:07)
[2023-08-05 19:30] VITALS: BP 140/76
[2023-08-05 23:08] VITALS: BP 122/76
[2023-08-06 03:45] VITALS: BP 160/85
[2023-08-06] MEDS: SYNTHROID 75 MCG PO (05:05)
[2023-08-06] MEDS: TRANDATE 10 MG IV ×4 (05:05→22:32)
[2023-08-06] MEDS: ZOFRAN 4 MG IV ×3 (05:17→20:56)
--- NOTE | 2023-08-06 05:26 | DOWNTIME ---
There was a [employer] Client [employer] Layer Downtime on 08/06/2023 from 0100 to 08/06/2023 at 0439. Downtime documentation of patient's care, including medication administrations, has been reconciled in the electronic record per guidelines. Refer to the
patient's paper chart under the miscellaneous tab to see printed paper medication records and downtime forms.
[2023-08-06 05:36] VITALS: BMI 21.2
[2023-08-06 07:15] VITALS: BP 135/76
[2023-08-06] MEDS: DEPAKOTE (12 HR RELEASE) 250 MG PO ×2 (07:58→19:58)
[2023-08-06] MEDS: METHADONE 100 MG/10 ML 200 MG PO (07:58)
[2023-08-06] MEDS: PROTONIX 40 MG PO (07:58)
[2023-08-06] MEDS: ZESTRIL 10 MG PO (07:58)
[2023-08-06 11:15] VITALS: BP 145/91
--- NOTE | 2023-08-06 13:12 | W.PN.UPDATE ---
Update Note
Progress Note Update
patient seen chart reviewed spoke to [facility] nursing manager and dr jara. everyone describes improved mental status. noted from licensed nursing assistant patient having issues with urinary urgency which can occur w depakote . depakote level was quite high
despite a relatively low dose 250/3. i am wondering if this was the reason for the sedation noted over the weekend. some people find depakote to be very sedating. at any rate she does not like taking depakote and give various factors would dc.
for today cut back to bid will see how she is in am. i did find her much better today as well vis a vis mental status. she still tends to go off on tangents but the tangents seem more relevant. she is hoping to live w sister kerry which is a good
thing as many snf's have rejected bc methadone maintenance. asked dr jara to assess anemia likely chronic disease. hopefully if sensorium continues to improve and physical strength as well can be dc in the near future.
[2023-08-06] MEDS: ATIVAN 0.5 MG IV (13:43)
--- NOTE | 2023-08-06 14:21 | W.PN.HOSP.TC ---
Today's Communication/Plan
-
Continue methadone
Adjust Depakote dose.
Continue current antihypertensive regimen
Monitor hemoglobin.
Assessment / Plan
Assessment / Plan
Impression:
Presentation with nausea and vomiting.
Prolonged QTc
Frequent PVCs with bigeminy
Persistent delirium secondary to opiate withdrawal
Opiate use disorder with opiate withdrawal, severe
Non-GA troponin elevation
Hypokalemia
Hypertensive urgency secondary to opiate withdrawal.
Acute urine retention
UTI, uncomplicated
Anemia of chronic disease
Conditions prior to admission:
Essential hypertension
Hypothyroidism
Opiate use disorder on methadone former heroin addict.
Bipolar disorder
Chronic hepatitis C.
Plan:
Delirium suspect secondary to opiate withdrawal.
Opiate use disorder, severe with opiate withdrawal
Patient with no oral intake.
Spitting out oral medications.
Initially, methadone had been on hold on admission due to QTc prolongation with attempt to reintroduce later
Initiated on Depakote.
Mental status improved and patient is more interactive and cooperative with medications.
Patient has been able to administer her medications including methadone
Continue Depakote pending level.
Has been off Risperdal and Zyprexa.
Continue IV lorazepam as needed for agitation. Ativan dose decreased to 0.5mg on 08/02
UTI, uncomplicated
Urinary retention PVR over 800 mL on 07/23
Albert catheter ordered on 07/23 for acute urine retention
Urinalysis not suggestive of UTI at that time.
Voiding trial with Albert catheter removed
On 07/29 remains with urinary symptoms.
Urinalysis suggestive of UTI.
Urine culture with sensitive E. coli
Initiated on ceftriaxone 07/29 to complete 5-day course of therapy through 08/03.
Essential hypertension
Hypertensive urgency in the settings of opiate withdrawal.
Continue metoprolol, lisinopril, IV hydralazine
continue Clonidine patch
Anemia of chronic disease
Hemoglobin trending down to 8.
No evidence of acute blood loss
Will follow CBC.
Check iron and B12 levels.
Minimize blood drawings
Heme check stool
Prolonged QTc
Improved with IV fluids and electrolyte repletion
Continue cardiac monitoring.
Non-GA troponin elevation
Echo noted with preserved biventricular function.
Hypothyroidism on replacement
Anticipated Discharge: 24 - 48 hours
Subjective/Interval History
-
Date of Service: August 06, 2023
Objective Data
-
Vital Signs:
Vital Signs
Temp Pulse Resp BP Pulse Ox
98.3 F 68 18 145/91 95
08/06/23 11:15 08/06/23 11:15 08/06/23 11:15 08/06/23 11:15 08/06/23 11:15
I&O
08/05/23 08/06/23 08/07/23
06:59 06:59 06:59
Intake Total 1710 / 1710 930 / 930
Balance 1710 / 1710 930 / 930
Physical Exam
-
General: Well Developed and No Apparent Distress
HEENT: Normocephalic, Atraumatic and Moist Mucous Membranes
Respiratory: Clear to Auscultation
Cardiac: Regular Rhythm and S1/S2; Negative Murmur, Rub or Gallop
GI: Soft, Nontender, Nondistended and Normal Bowel Sounds; Negative Organomegaly
Rectal: Deferred by Provider
Musculoskeletal: No Clubbing, No Cyanosis and No Edema
Skin: Negative Rash
Neuro: Nonfocal/Grossly Intact
[2023-08-06 15:35] VITALS: BP 160/88
--- NOTE | 2023-08-06 15:38 | CM ---
Psychiatric consult completed. Depakote dosage adjusted and reduced frequency. Therapy recommending SNF. 56 referrals have been forwarded and all were declines due to Methadone. MD and psychiatrist aware.
[2023-08-06 16:08] LABS: Iron 94 ug/dl (37-170)
[2023-08-06 16:17] LABS: Percent Saturation 34 % (20-50); Total Iron Binding Capacity 269 ug/dl (265-497)
[2023-08-06 16:41] LABS: Ferritin 55.6 ng/ml (11.1-264.0)
[2023-08-06 16:56] LABS: Vitamin B12 > 1000 pg/ml (239-931)
[2023-08-06] MEDS: LOVENOX 40 MG SC (17:58)
[2023-08-06 19:41] VITALS: BP 138/89
[2023-08-06] MEDS: MOTRIN 200 MG PO (22:14)
[2023-08-06 23:24] VITALS: BP 138/71
[2023-08-07] MEDS: ATIVAN 0.5 MG IV ×2 (00:48→16:28)
[2023-08-07] MEDS: TRANDATE IV ×2 (04:21→21:31)
[2023-08-07 04:58] LABS: % Basophils 0.3 % (0-2); % Eosinophils 4.4 % (0-6); % Immature Granulocytes 1.8 % (0-0.5); % Lymphocytes 34.9 % (20.5-51.1); % Monocytes 10.9 % (1.7-9.3); % Neutrophils 47.7 % (42.2-75.2); Absolute Eosinophils 0.2 10^3/uL (0-0.7); Absolute Immature Granulocytes 0.1 10^3/uL (0-0.05); Absolute Lymphocytes 1.4 10^3/uL (1.2-3.4); Absolute Monocytes 0.4 10^3/uL (0.1-0.6); Absolute Neutrophils 1.9 10^3/uL (1.4-6.5); Hematocrit 23.5 % (37.0-47.0); Hemoglobin 7.8 g/dL (12.0-16.0); Mean Corp Hgb Conc. 33.2 g/dL (33.0-37.0); Mean Corpuscular Hgb 30.4 pg (27.0-31.0); Mean Corpuscular Volume 91.4 fL (81.0-99.0); Mean Platelet Volume 10.9 fL (7.4-10.4); Nucleated Red Blood Cells % 0 %; Platelet Count 146 10^3/uL (130-400); Red Blood Cell Count 2.57 10^6/uL (4.20-5.40); Red Cell Dist. Width 13.1 % (11.5-14.5); White Blood Cell Count 3.9 10^3/uL (4.8-10.8)
[2023-08-07] MEDS: SYNTHROID 75 MCG PO (05:35)
[2023-08-07 07:50] VITALS: BP 151/77
[2023-08-07] MEDS: PROTONIX 40 MG PO (09:44)
[2023-08-07] MEDS: ZESTRIL 10 MG PO (09:44)
[2023-08-07] MEDS: DEPAKOTE (12 HR RELEASE) 250 MG PO (09:45)
[2023-08-07] MEDS: METHADONE 100 MG/10 ML 200 MG PO (09:45)
[2023-08-07] MEDS: TRANDATE 10 MG IV ×2 (09:46→15:51)
[2023-08-07] MEDS: FLUSH (NSS) 2 FLUSH IV ×2 (09:47→15:54)
--- NOTE | 2023-08-07 11:06 | W.PN.UPDATE ---
Update Note
Progress Note Update
patient seen chart reviewed. spoke to nursing patient aide and spring encaser. the patient was a bit more confused at the onset of our meeting. she was calling out for help. when i arrived she was flummoxed by the heart monitor and a bit of red on her
sheets which i think was jelly from a donut. after a while she settled down and she was able to engage in some reasonable conversation. she spoke of a drug and alcohol counselor at [facility] whom we both know and the things she said about him in
gratitude for what he had done for her were right on the juan carlos. we talked about her family....she spoke of her nephew's illness which has now remitted and i commented to her that a mother can only be as happy as her unhappiest child and she said in
her family she was and continues to be the unhappiest child. then there were other moments when she was confused. there is concern she has a uti given several episodes of incontinence. she also said once to aide that it burned when she urinated.
i had attributed the incontinence to depakote which i have stopped. she has already been rx for uti here but i ordered repeat ua reflex to culture. also check b12 and folate. she does not have macrocytic indices but her iron counts are on the low
side and could be some play between low iron and low b12 and folate to make indices look normal. at any rate i could not find b12 and folate levels in chart from this admit. tsh is nl. other news sister told nsg she could not have patient living
with her which makes disposition continue to be a big issue. will follow
[2023-08-07 11:36] LABS: Urine Albumin Negative (Neg - Trace); Urine Bilirubin Negative (Negative); Urine Character Clear (Clear); Urine Color Yellow; Urine Glucose Negative (Negative); Urine Ketone Trace (Negative); Urine Leukocyte 1+ (Negative); Urine Nitrite Negative (Negative); Urine Occult Blood Negative (Negative); Urine Urobilinogen Negative (Neg - 1+); Urine pH 6.5 (5.0-9.0)
[2023-08-07 11:49] LABS: Urine Triple Phosphate Crystal Present
[2023-08-07 11:50] LABS: Urine Waxy Cast 0-2 /LPF
[2023-08-07 11:51] LABS: Urine Bacteria Moderate (Negative); Urine White Cell 16-20 /HPF (0-5)
[2023-08-07 11:54] VITALS: BP 127/82
[2023-08-07 12:58] LABS: Folate 10.2 ng/ml (2.76-20)
--- NOTE | 2023-08-07 14:38 | W.PN.HOSP.TC ---
Today's Communication/Plan
-
Methadone
Depakote
Physical therapy evaluation
Iron and folate
Follow hemoglobin.
Assessment / Plan
Assessment / Plan
Impression:
Presentation with nausea and vomiting.
Prolonged QTc
Frequent PVCs with bigeminy
Persistent delirium secondary to opiate withdrawal
Opiate use disorder with opiate withdrawal, severe
Non-AL troponin elevation
Hypokalemia
Hypertensive urgency secondary to opiate withdrawal.
Acute urine retention
UTI, uncomplicated
Anemia of chronic disease
Conditions prior to admission:
Essential hypertension
Hypothyroidism
Opiate use disorder on methadone former heroin addict.
Bipolar disorder
Chronic hepatitis C.
Plan:
Delirium suspect secondary to opiate withdrawal.
Opiate use disorder, severe with opiate withdrawal
Patient with no oral intake.
Spitting out oral medications.
Initially, methadone had been on hold on admission due to QTc prolongation with attempt to reintroduce later
Initiated on Depakote.
Mental status improved and patient is more interactive and cooperative with medications.
Patient has been able to administer her medications including methadone
Continue Depakote pending level.
Has been off Risperdal and Zyprexa.
Continue IV lorazepam as needed for agitation. Ativan dose decreased to 0.5mg on 08/02
UTI, uncomplicated
Urinary retention PVR over 800 mL on 07/23
Albert catheter ordered on 07/23 for acute urine retention
Urinalysis not suggestive of UTI at that time.
Voiding trial with Albert catheter removed
On 07/29 remains with urinary symptoms.
Urinalysis suggestive of UTI.
Urine culture with sensitive E. coli
Initiated on ceftriaxone 07/29 to complete 5-day course of therapy through 08/03.
Essential hypertension
Hypertensive urgency in the settings of opiate withdrawal.
Continue metoprolol, lisinopril, IV hydralazine
continue Clonidine patch
Anemia of chronic disease
Hemoglobin trending down to 7.8
No evidence of acute blood loss
Iron level close to normal, slightly decreased
TIBC on the lower side
Normal B12
Suspect anemia of chronic disease and malnutrition
Will follow CBC.
Heme check stool
Consider transfusion if trending consistently below 7
Will start iron and folate.
Prolonged QTc
Improved with IV fluids and electrolyte repletion
Continue cardiac monitoring.
Non-AL troponin elevation
Echo noted with preserved biventricular function.
Hypothyroidism on replacement
Anticipated Discharge: 24 - 48 hours
Subjective/Interval History
-
Date of Service: August 07, 2023
Objective Data
-
Labs:
Laboratory Results
08/07/23
04:18
WBC 3.9 L
Hgb 7.8 L
Hct 23.5 L
Plt Count 146
Vital Signs:
Vital Signs
Temp Pulse Resp BP Pulse Ox
98.4 F 64 16 127/82 97
08/07/23 11:54 08/07/23 11:54 08/07/23 11:54 08/07/23 11:54 08/07/23 11:54
I&O
08/06/23 08/07/23 08/08/23
06:59 06:59 06:59
Intake Total 930 / 930 840 / 840
Balance 930 / 930 840 / 840
Physical Exam
-
General: Well Developed and No Apparent Distress
HEENT: Normocephalic, Atraumatic and Moist Mucous Membranes
Respiratory: Clear to Auscultation
Cardiac: Regular Rhythm and S1/S2; Negative Murmur, Rub or Gallop
GI: Soft, Nontender, Nondistended and Normal Bowel Sounds; Negative Organomegaly
Rectal: Deferred by Provider
Musculoskeletal: No Clubbing, No Cyanosis and No Edema
Skin: Negative Rash
Neuro: Awake, Alert, Oriented and Nonfocal/Grossly Intact
[2023-08-07 15:05] VITALS: BP 157/83
[2023-08-07 15:36] VITALS: BP 157/83
[2023-08-07] MEDS: FOLVITE 0.400000000000000022 MG PO (15:51)
[2023-08-07] MEDS: LOVENOX 40 MG SC (17:57)
[2023-08-07 19:10] VITALS: BP 161/84
[2023-08-07 23:01] VITALS: BP 142/80
[2023-08-08 03:04] VITALS: BP 136/80
[2023-08-08] MEDS: TRANDATE IV (03:46)
[2023-08-08] MEDS: SYNTHROID 75 MCG PO (05:36)
[2023-08-08 06:22] LABS: % Basophils 0.7 % (0-2); % Eosinophils 4.3 % (0-6); % Immature Granulocytes 3.3 % (0-0.5); % Lymphocytes 42.3 % (20.5-51.1); % Monocytes 10.7 % (1.7-9.3); % Neutrophils 38.7 % (42.2-75.2); Absolute Eosinophils 0.1 10^3/uL (0-0.7); Absolute Immature Granulocytes 0.1 10^3/uL (0-0.05); Absolute Lymphocytes 1.3 10^3/uL (1.2-3.4); Absolute Monocytes 0.3 10^3/uL (0.1-0.6); Absolute Neutrophils 1.2 10^3/uL (1.4-6.5); Hematocrit 23.5 % (37.0-47.0); Hemoglobin 8.2 g/dL (12.0-16.0); Mean Corp Hgb Conc. 34.9 g/dL (33.0-37.0); Mean Corpuscular Hgb 31.2 pg (27.0-31.0); Mean Corpuscular Volume 89.4 fL (81.0-99.0); Mean Platelet Volume 9.8 fL (7.4-10.4); Nucleated Red Blood Cells % 0 %; Platelet Count 127 10^3/uL (130-400); Red Blood Cell Count 2.63 10^6/uL (4.20-5.40); Red Cell Dist. Width 13.2 % (11.5-14.5)
[2023-08-08 07:17] VITALS: BP 168/98
[2023-08-08] MEDS: ZESTRIL 10 MG PO (08:05)
[2023-08-08] MEDS: METHADONE 100 MG/10 ML 200 MG PO (08:05)
[2023-08-08] MEDS: PROTONIX 40 MG PO (08:06)
[2023-08-08] MEDS: FOLVITE 0.400000000000000022 MG PO (08:06)
--- NOTE | 2023-08-08 08:24 | CM ---
met with patient at bedside who was pleasant but confused at times.she was seen by psychiatry .pt worked with patient on steps-she has increased mobility tolerance per therapy-cont to rec skilled placement.floor nurse mentioned she received a call
from sister kerry who told nurse she is not able to have patient live with her.floor nurse also shared that patient eats condiments then complains of nausea.plan :dc to [facility] facility
[2023-08-08] MEDS: TRANDATE 10 MG IV ×3 (11:01→22:48)
[2023-08-08] MEDS: CATAPRES-TTS-2 0.200000000000000011 MG TRANSDERM (11:03)
--- NOTE | 2023-08-08 11:54 | W.PN.UPDATE ---
Update Note
Progress Note Update
patient seen chart reviewed. spoke w nursing and dr jara. patient is confused today. she could not stay on topic and was unable to answer simple questions eg 'how old are you'? she could tell me her birthdate but could not tell me her age. when
i explained to her how she could calculate her age knowing she was born in 1960 by knowing what year it was and subtracting....she did not know what year it was and when i asked her she told me 1961. she was rather fidgety touching all the objects
around the bed and attempting to organize them but not succeeding. yesterday depakote stopped bc concerns re enuresis dr jara also concerned it is contributing to hematologic issues. she has lost two lbs in the last week not eating as much.
suspect there was a baseline dementia but there is also a fluctuating level of confusion here reminiscent of a delirium unclear etiology. she is cooperative. no need for psych meds to manage agitation. continue to monitor. cm asking whether
suboxone might be more acceptable to [facility] as placement is an issue. i don't know that answer but i suspect taper of methadone to suboxone is a longer term project. for now monitor. ua looked infected but culture showing no growth will follow
[2023-08-08 11:57] VITALS: BP 170/96
[2023-08-08] MEDS: ATIVAN 0.5 MG IV ×2 (12:10→20:05)
--- NOTE | 2023-08-08 14:04 | W.PN.HOSP.TC ---
Today's Communication/Plan
-
Methadone
Wean off IV lorazepam.
Supportive care.
Long-term placement.
Assessment / Plan
Assessment / Plan
Impression:
Presentation with nausea and vomiting.
Prolonged QTc on presentation
Frequent PVCs with bigeminy
Persistent delirium secondary to opiate withdrawal
Opiate use disorder with opiate withdrawal, severe
Non-[place] troponin elevation
Hypokalemia
Hypertensive urgency secondary to opiate withdrawal.
Acute urine retention
UTI, uncomplicated
Anemia of chronic disease
Conditions prior to admission:
Essential hypertension
Hypothyroidism
Opiate use disorder on methadone former heroin addict.
Bipolar disorder
Chronic hepatitis C.
Plan:
Delirium suspect secondary to opiate withdrawal.
Opiate use disorder, severe with opiate withdrawal
Mental status improved and close to baseline, although fluctuating with episodes of confusion.
Agitation resolved
Suspect patient has dementia and will require long-term placement
Currently on methadone at 200 mg daily.
Wean off IV lorazepam to standing oral regimen if possible.
Previously on Depakote and Risperdal, had been discontinued.
UTI, uncomplicated
Urinary retention PVR over 800 mL on 07/23
Albert catheter ordered on 07/23 for acute urine retention
Urinalysis not suggestive of UTI at that time.
Voiding trial with Albert catheter removed
On 07/29 remains with urinary symptoms.
Urinalysis suggestive of UTI.
Urine culture with sensitive E. coli
Initiated on ceftriaxone 07/29 to complete 5-day course of therapy through 08/03.
Essential hypertension
Hypertensive urgency in the settings of opiate withdrawal.
Continue metoprolol, lisinopril, IV hydralazine
continue Clonidine patch
Anemia of chronic disease
Pancytopenia, likely related to Depakote. Discontinued.
Hemoglobin trending down to 7.8
No evidence of acute blood loss
Iron level close to normal, slightly decreased
TIBC on the lower side
Normal B12
Suspect anemia of chronic disease and malnutrition
Will follow CBC.
Heme check stool
Consider transfusion if trending consistently below 7
Initiated on IV iron repletion with folate.
Prolonged QTc
Improved with IV fluids and electrolyte repletion
Continue cardiac monitoring.
Non-VT troponin elevation
Echo noted with preserved biventricular function.
Hypothyroidism on replacement
Anticipated Discharge: > 48 hours
Subjective/Interval History
-
Date of Service: August 08, 2023
Objective Data
-
Labs:
Laboratory Results
08/08/23
06:07
WBC 3.0 L
Hgb 8.2 L
Hct 23.5 L
Plt Count 127 L
Vital Signs:
Vital Signs
Temp Pulse Resp BP Pulse Ox
98.8 F 72 20 170/96 95
08/08/23 11:57 08/08/23 11:57 08/08/23 11:57 08/08/23 11:57 08/08/23 11:57
I&O
08/07/23 08/08/23 08/09/23
06:59 06:59 06:59
Intake Total 840 / 840 1740 / 1740
Balance 840 / 840 1740 / 1740
Physical Exam
-
General: Well Developed and No Apparent Distress
HEENT: Normocephalic, Atraumatic and Moist Mucous Membranes
Respiratory: Clear to Auscultation
Cardiac: Regular Rhythm and S1/S2; Negative Murmur, Rub or Gallop
GI: Soft, Nontender, Nondistended and Normal Bowel Sounds; Negative Organomegaly
Rectal: Deferred by Provider
Musculoskeletal: No Clubbing, No Cyanosis and No Edema
Skin: Negative Rash
Neuro: Nonfocal/Grossly Intact
[2023-08-08] MEDS: FERRLECIT 110 MG IV (14:30)
[2023-08-08 15:31] VITALS: BP 171/84
--- NOTE | 2023-08-08 18:28 | PTCARENOTE ---
patient had no bm today. +bs noted. denies pain. plan of care ongoing.
[2023-08-08 19:05] VITALS: BP 169/88
[2023-08-08] MEDS: NSS (PRESERVATIVE FREE) 0.5 ML IV (20:08)
[2023-08-08] MEDS: FLUSH (NSS) 2 FLUSH IV ×2 (20:10→22:49)
[2023-08-08 23:05] VITALS: BP 142/67
[2023-08-09] VITALS (7 sets, daily range): BP systolic 106–144; BP diastolic 65–82
[2023-08-09] MEDS: ATIVAN 0.5 MG IV ×2 (02:28→19:15)
[2023-08-09] MEDS: NSS (PRESERVATIVE FREE) 0.5 ML IV ×2 (02:29→19:15)
[2023-08-09] MEDS: FLUSH (NSS) 2 FLUSH IV ×2 (02:31→03:07)
[2023-08-09] MEDS: TRANDATE 10 MG IV (03:07)
[2023-08-09] MEDS: SYNTHROID 75 MCG PO (05:38)
--- NOTE | 2023-08-09 08:24 | W.PN.HOSP.TC ---
Today's Communication/Plan
-
Will taper lorazepam to every 8 hours as needed
Assessment / Plan
Assessment / Plan
Impression:
Presentation with nausea and vomiting.
Prolonged QTc on presentation
Frequent PVCs with bigeminy
Persistent delirium secondary to opiate withdrawal
Opiate use disorder with opiate withdrawal, severe
Non-AR troponin elevation
Hypokalemia
Hypertensive urgency secondary to opiate withdrawal.
Acute urine retention
UTI, uncomplicated
Anemia of chronic disease
Conditions prior to admission:
Essential hypertension
Hypothyroidism
Opiate use disorder on methadone former heroin addict.
Bipolar disorder
Chronic hepatitis C.
Plan:
Delirium suspect secondary to opiate withdrawal.
Opiate use disorder, severe with opiate withdrawal
Mental status improved and close to baseline, although fluctuating with episodes of confusion.
Agitation resolved
Suspect patient has dementia and will require long-term placement
Currently on methadone at 200 mg daily.
Wean off IV lorazepam to standing oral regimen if possible.
Previously on Depakote and Risperdal, had been discontinued.
UTI, uncomplicated
Urinary retention PVR over 800 mL on 07/23
Albert catheter ordered on 07/23 for acute urine retention
Urinalysis not suggestive of UTI at that time.
Voiding trial with Albert catheter removed
On 07/29 remains with urinary symptoms.
Urinalysis suggestive of UTI.
Urine culture with sensitive E. coli
Initiated on ceftriaxone 07/29 to complete 5-day course of therapy through 08/03.
Essential hypertension
Hypertensive urgency in the settings of opiate withdrawal.
Continue metoprolol, lisinopril, IV hydralazine
continue Clonidine patch
Anemia of chronic disease
Pancytopenia, likely related to Depakote. Discontinued.
Hemoglobin trending down to 7.8
No evidence of acute blood loss
Iron level close to normal, slightly decreased
TIBC on the lower side
Normal B12
Suspect anemia of chronic disease and malnutrition
Will follow CBC.
Heme check stool
Consider transfusion if trending consistently below 7
Initiated on IV iron repletion with folate.
Prolonged QTc
Improved with IV fluids and electrolyte repletion
Continue cardiac monitoring.
Non-AR troponin elevation
Echo noted with preserved biventricular function.
Hypothyroidism on replacement
Anticipated Discharge: Within 24 hours
Subjective/Interval History
-
Date of Service: August 09, 2023
Somewhat repetitive no distress actually got a good night sleep still does not know the year could not relate her age appropriately
Objective Data
-
Vital Signs:
Vital Signs
Temp Pulse Resp BP Pulse Ox
98.1 F 63 16 128/72 99
08/09/23 07:10 08/09/23 07:10 08/09/23 07:10 08/09/23 07:10 08/09/23 07:10
I&O
08/08/23 08/09/23 08/10/23
06:59 06:59 06:59
Intake Total 1740 / 1740 360 / 360
Balance 1740 / 1740 360 / 360
Review of Systems
-
Unable to obtain full review of systems at this time due to: Dementia
History Source: Patient
Constitutional: Reports Fatigue and Weakness; Denies Fever
Respiratory: Reports No Symptoms
Skin: Reports Rash (Scattered ecchymoses in both arms/right arm PICC line)
Physical Exam
-
General: Well Developed
HEENT: Normocephalic
Respiratory: Clear to Auscultation
Cardiac: Regular Rhythm
GI: Soft and Nontender
Neuro: Awake, Alert, Oriented and AO x 3
[2023-08-09] MEDS: FOLVITE 0.400000000000000022 MG PO (08:57)
[2023-08-09] MEDS: ZESTRIL 10 MG PO (08:57)
[2023-08-09] MEDS: PROTONIX 40 MG PO (08:57)
[2023-08-09] MEDS: METHADONE 100 MG/10 ML 200 MG PO (08:57)
--- NOTE | 2023-08-09 10:05 | W.PN.UPDATE ---
Update Note
Progress Note Update
Patient is very drowsy and is falling asleep so I cannot interview her presently.
For now would continue current treatment.
Tianna F/U.
[2023-08-09] MEDS: TRANDATE IV ×3 (10:58→23:02)
[2023-08-09] MEDS: FERRLECIT 110 MG IV (15:01)
--- NOTE | 2023-08-09 15:07 | PTCARENOTE ---
pt did not receive IV trandate this afternoon or this AM due to parameters to hold. pt HR has been in 50's all day. proper charting shown in JUN. pt is oob to chair with x1 assist this afternoon
--- NOTE | 2023-08-09 19:29 | PTCARENOTE ---
pt given prn ativan for extreme restless, throwing things on the floor, and screaming that she wants 'sandhu juice' pt ordered dinner and pt ate 65% of it with included cranberry juice. pt screaming and cursing at medsitter. pt setting off chair
alarm not redirectable for medsitter. See proper documentation for ativan administration.
[2023-08-10] MEDS: TRANDATE IV ×2 (03:34→21:36)
[2023-08-10] MEDS: NSS (PRESERVATIVE FREE) 0.5 ML IV (03:53)
[2023-08-10] MEDS: ATIVAN 0.5 MG IV (03:53)
[2023-08-10] MEDS: SYNTHROID 75 MCG PO (04:55)
[2023-08-10 07:10] VITALS: BP 114/60
[2023-08-10] MEDS: FOLVITE 0.400000000000000022 MG PO (08:16)
[2023-08-10] MEDS: ZESTRIL 10 MG PO (08:16)
[2023-08-10] MEDS: PROTONIX 40 MG PO (08:16)
[2023-08-10] MEDS: METHADONE 100 MG/10 ML 200 MG PO (08:17)
--- NOTE | 2023-08-10 08:32 | VATNOTE ---
Midline dressing changed at this time. Changed per protocol, new biopatch applied, statlock changed, cleaned with chlorhexidine, and cap changed.
--- NOTE | 2023-08-10 08:32 | W.PN.HOSP.TC ---
Today's Communication/Plan
-
Reduce lorazepam to every 8
Check QTc again on present course of methadone
Assessment / Plan
Assessment / Plan
Impression:
Presentation with nausea and vomiting.
Prolonged QTc on presentation
Frequent PVCs with bigeminy
Persistent delirium secondary to opiate withdrawal
Opiate use disorder with opiate withdrawal, severe
Non-[place] troponin elevation
Hypokalemia
Hypertensive urgency secondary to opiate withdrawal.
Acute urine retention
UTI, uncomplicated
Anemia of chronic disease
Conditions prior to admission:
Essential hypertension
Hypothyroidism
Opiate use disorder on methadone former heroin addict.
Bipolar disorder
Chronic hepatitis C.
Plan:
Delirium suspect secondary to opiate withdrawal.
Opiate use disorder, severe with opiate withdrawal
Mental status improved and close to baseline, although fluctuating with episodes of confusion.
Agitation resolved
Suspect patient has dementia and will require long-term placement
Currently on methadone at 200 mg daily.
Wean off IV lorazepam to standing oral regimen if possible.
Previously on Depakote and Risperdal, had been discontinued.
UTI, uncomplicated
Urinary retention PVR over 800 mL on 07/23
Albert catheter ordered on 07/23 for acute urine retention
Urinalysis not suggestive of UTI at that time.
Voiding trial with Albert catheter removed
On 07/29 remains with urinary symptoms.
Urinalysis suggestive of UTI.
Urine culture with sensitive E. coli
Initiated on ceftriaxone 07/29 to complete 5-day course of therapy through 08/03.
Essential hypertension
Hypertensive urgency in the settings of opiate withdrawal.
Continue metoprolol, lisinopril, IV hydralazine
continue Clonidine patch
Anemia of chronic disease
Pancytopenia, likely related to Depakote. Discontinued.
Hemoglobin trending down to 7.8
No evidence of acute blood loss
Iron level close to normal, slightly decreased
TIBC on the lower side
Normal B12
Suspect anemia of chronic disease and malnutrition
Will follow CBC.
Heme check stool
Consider transfusion if trending consistently below 7
Initiated on IV iron repletion with folate.
Prolonged QTc
Improved with IV fluids and electrolyte repletion
Continue cardiac monitoring.
Non-ME troponin elevation
Echo noted with preserved biventricular function.
Hypothyroidism on replacement
Anticipated Discharge: Within 24 hours
Subjective/Interval History
-
Date of Service: August 10, 2023
Rambling about what the future will bring in what to do today tomorrow etc./When I walked into the room she she had fallen asleep fling on her morning meal menu
Objective Data
-
Vital Signs:
Vital Signs
Temp Pulse Resp BP Pulse Ox
98.4 F 60 16 114/60 98
08/10/23 07:10 08/10/23 08:16 08/10/23 07:10 08/10/23 08:16 08/10/23 07:10
I&O
08/09/23 08/10/23 08/11/23
06:59 06:59 06:59
Intake Total 360 / 360 1550 / 1550
Balance 360 / 360 1550 / 1550
Review of Systems
-
History Source: Patient
Constitutional: Denies Fever
Respiratory: Reports No Symptoms
Breast: Reports No Symptoms
Skin: Reports Rash and Sores
Physical Exam
-
General: No Apparent Distress
HEENT: Normocephalic
Respiratory: Clear to Auscultation
Cardiac: Regular Rhythm
Skin: IV Access / Catheter Site
Neuro: Awake
Data Reviewed
-
Total Time Spent with Patient (in minutes): 54
Labs: Labs Reviewed by me
[2023-08-10] MEDS: TRANDATE 10 MG IV ×2 (10:06→18:20)
--- NOTE | 2023-08-10 10:35 | W.PN.UPDATE ---
Update Note
Progress Note Update
Patient today is very chatty and energetic as opposed to when I saw her yesterday. She is oriented tin all sheres but recent memory and immediatye recall is poor and she has difficulties with basic tasks such as simple calculations.
Obviously needs placement in structured facility. Would continue current medications.
[2023-08-10 11:10] VITALS: BP 132/69
[2023-08-10] MEDS: FERRLECIT 110 MG IV (13:29)
[2023-08-10 15:10] VITALS: BP 131/67
[2023-08-10 19:29] VITALS: BP 137/79
[2023-08-10 23:07] VITALS: BP 112/67
[2023-08-11 03:31] VITALS: BP 142/84
[2023-08-11] MEDS: TRANDATE IV ×4 (03:44→23:00)
[2023-08-11 05:26] LABS: Hematocrit 22.7 % (37.0-47.0); Hemoglobin 7.7 g/dL (12.0-16.0); Mean Corp Hgb Conc. 33.9 g/dL (33.0-37.0); Mean Corpuscular Hgb 30.8 pg (27.0-31.0); Mean Corpuscular Volume 90.8 fL (81.0-99.0); Mean Platelet Volume 9.7 fL (7.4-10.4); Platelet Count 59 10^3/uL (130-400); Red Cell Dist. Width 13.3 % (11.5-14.5)
[2023-08-11 05:41] VITALS: BMI 20.8
[2023-08-11 05:45] LABS: White Blood Cell Count 2.3 10^3/uL (4.8-10.8)
[2023-08-11] MEDS: SYNTHROID 75 MCG PO (05:46)
[2023-08-11 06:03] LABS: Blood Urea Nitrogen 3 mg/dl (7-17); Calcium 7.6 mg/dl (8.4-10.2); Carbon Dioxide 28 mmol/L (22-30); Chloride 109 mmol/L (98-107); Estimated Creatinine Clearance 77 ml/min; Glucose 78 mg/dl (70-99); Potassium 3.2 mmol/L (3.5-5.1); Sodium 139 mmol/L (135-145); eGFR > 60.00
[2023-08-11 06:14] VITALS: BMI 20.8
[2023-08-11] MEDS: METHADONE 100 MG/10 ML 200 MG PO (07:36)
[2023-08-11] MEDS: PROTONIX 40 MG PO (07:36)
[2023-08-11] MEDS: FOLVITE 0.400000000000000022 MG PO (07:36)
[2023-08-11 07:57] VITALS: BP 123/79
[2023-08-11] MEDS: ZESTRIL 10 MG PO (08:35)
[2023-08-11] MEDS: ATIVAN 0.5 MG IV (11:07)
[2023-08-11] MEDS: NSS (PRESERVATIVE FREE) 0.25 ML IV (11:08)
[2023-08-11 11:45] VITALS: BP 125/73
[2023-08-11] MEDS: FERRLECIT 110 MG IV (14:10)
--- NOTE | 2023-08-11 14:43 | CM ---
Therapy recommendation for SNF vs home with 24 hour care. Over 50 referrals have been forwarded and no acceptances due to barrier of Methadone use. Patient lives alone and has no resources for 24 hour in home care. Sister has notified nursing
staff in past that she is not able to have patient live with her. This CM spoke with patient who expressed understanding that the Methadone is a barrier to getting SNF acceptance. She does feel that her sister or a friend Man, would be willing to
stay with her and assist if needed until she regains her strength. CM will forward referral for [facility], PT/OT. Patient in agreement.
[2023-08-11 15:13] VITALS: BP 135/70
--- NOTE | 2023-08-11 16:02 | W.PN.HOSP.TC ---
Today's Communication/Plan
-
Wean off IV lorazepam
Continue methadone.
Physical therapy assessment.
Monitor CBC for worsening of pancytopenia
Continue and complete IV iron.
Discharge planing likely require placement, although patient adamantly declining option of nursing facility.
Assessment / Plan
Assessment / Plan
Impression:
Presentation with nausea and vomiting.
Prolonged QTc on presentation
Frequent PVCs with bigeminy
Persistent delirium secondary to opiate withdrawal
Opiate use disorder with opiate withdrawal, severe
Non-[place] troponin elevation
Hypokalemia
Hypertensive urgency secondary to opiate withdrawal.
Acute urine retention
UTI, uncomplicated
Anemia of chronic disease
Conditions prior to admission:
Essential hypertension
Hypothyroidism
Opiate use disorder on methadone former heroin addict.
Bipolar disorder
Chronic hepatitis C.
Plan:
Delirium suspect secondary to opiate withdrawal.
Opiate use disorder, severe with opiate withdrawal
Mental status improved and close to baseline, although fluctuating with episodes of confusion.
Agitation resolved
Suspect patient has dementia and will require long-term placement
Currently on methadone at 200 mg daily.
Wean off IV lorazepam to standing oral regimen if possible.
Previously on Depakote and Risperdal, had been discontinued.
UTI, uncomplicated
Urinary retention PVR over 800 mL on 07/23
Albert catheter ordered on 07/23 for acute urine retention
Urinalysis not suggestive of UTI at that time.
Voiding trial with Albert catheter removed
On 07/29 remains with urinary symptoms.
Urinalysis suggestive of UTI.
Urine culture with sensitive E. coli
Initiated on ceftriaxone 07/29 to complete 5-day course of therapy through 08/03.
Essential hypertension
Hypertensive urgency in the settings of opiate withdrawal.
Continue metoprolol, lisinopril, IV hydralazine
continue Clonidine patch
Anemia of chronic disease
Pancytopenia, likely related to Depakote. Discontinued.
Hemoglobin trending down to 7.8
No evidence of acute blood loss
Iron level close to normal, slightly decreased
TIBC on the lower side
Normal B12
Suspect anemia of chronic disease and malnutrition
Will follow CBC.
Heme check stool
Consider transfusion if trending consistently below 7
Initiated on IV iron repletion with folate.
Prolonged QTc
Improved with IV fluids and electrolyte repletion
Continue cardiac monitoring.
Non-[place] troponin elevation
Echo noted with preserved biventricular function.
Hypothyroidism on replacement
Anticipated Discharge: 24 - 48 hours
Subjective/Interval History
-
Date of Service: August 11, 2023
Objective Data
-
Labs:
Laboratory Results
08/11/23
05:20
WBC 2.3 L*
Hgb 7.7 L
Hct 22.7 L
Plt Count 59 L D
Sodium 139
Potassium 3.2 L
Chloride 109 H
Carbon Dioxide 28
BUN 3 L
Creatinine 0.7
Glucose 78
Calcium 7.6 L
Vital Signs:
Vital Signs
Temp Pulse Resp BP Pulse Ox
98.6 F 56 20 135/70 97
08/11/23 15:13 08/11/23 15:13 08/11/23 15:13 08/11/23 15:13 08/11/23 15:13
I&O
08/10/23 08/11/23 08/12/23
06:59 06:59 06:59
Intake Total 1550 / 1550 960 / 960 960 / 960
Output Total 600 / 600
Balance 1550 / 1550 360 / 360 960 / 960
Physical Exam
-
General: Well Developed and No Apparent Distress
HEENT: Normocephalic, Atraumatic and Moist Mucous Membranes
Respiratory: Clear to Auscultation
Cardiac: Regular Rhythm and S1/S2; Negative Murmur, Rub or Gallop
GI: Soft, Nontender, Nondistended and Normal Bowel Sounds; Negative Organomegaly
Rectal: Deferred by Provider
Musculoskeletal: No Clubbing, No Cyanosis and No Edema
Skin: Negative Rash
Neuro: Nonfocal/Grossly Intact
[2023-08-11 19:25] VITALS: BP 130/74
[2023-08-11 23:10] VITALS: BP 154/84
[2023-08-12 03:05] VITALS: BP 168/86
[2023-08-12] MEDS: TRANDATE IV ×4 (03:31→22:10)
[2023-08-12 06:00] VITALS: BMI 21.1
[2023-08-12] MEDS: ATIVAN 0.5 MG IV (06:20)
[2023-08-12] MEDS: NSS (PRESERVATIVE FREE) 0.25 ML IV (06:21)
[2023-08-12 06:31] LABS: % Basophils 0.8 % (0-2); % Eosinophils 2.5 % (0-6); % Immature Granulocytes 1.3 % (0-0.5); % Lymphocytes 42.7 % (20.5-51.1); % Monocytes 15.9 % (1.7-9.3); % Neutrophils 36.8 % (42.2-75.2); Absolute Eosinophils 0.1 10^3/uL (0-0.7); Absolute Monocytes 0.4 10^3/uL (0.1-0.6); Hemoglobin 8.6 g/dL (12.0-16.0); Mean Corp Hgb Conc. 33.1 g/dL (33.0-37.0); Mean Corpuscular Hgb 29.7 pg (27.0-31.0); Mean Corpuscular Volume 89.7 fL (81.0-99.0); Mean Platelet Volume 10.1 fL (7.4-10.4); Nucleated Red Blood Cells % 0 %; Platelet Count 70 10^3/uL (130-400); Red Cell Dist. Width 13.2 % (11.5-14.5)
[2023-08-12 06:50] LABS: White Blood Cell Count 2.4 10^3/uL (4.8-10.8)
[2023-08-12 07:15] VITALS: BP 154/85
[2023-08-12] MEDS: ZESTRIL 10 MG PO (07:38)
[2023-08-12] MEDS: PROTONIX 40 MG PO (07:38)
[2023-08-12] MEDS: SYNTHROID 75 MCG PO (07:38)
[2023-08-12] MEDS: METHADONE 100 MG/10 ML 200 MG PO (07:39)
[2023-08-12] MEDS: FOLVITE 0.400000000000000022 MG PO (07:42)
[2023-08-12 08:44] LABS: Absolute Neutrophils 0.9 10^3/uL (1.4-6.5)
--- NOTE | 2023-08-12 11:15 | CON.ONC ---
Addendum entered and electronically signed by Janis Song MD 08/12/23 14:49:
62 yo F w/ h/o HCV, opioid abuse, on Methadone currently, who was admitted with nausea and vomiting, then change in mental status and delirium, perhaps from opioid withdrawal. Her CBC was mostly normal at admission (slight WBC elevation), but over
the past week has been noted fro progressive cytopenias. She's had multiple medication changes, and was on Depakote for some time, stopped several days ago. She has a h/o cytopenias, underwent BM biopsy in [address] Bermudez, which was
unrevealing. She has mild iron def, getting IV iron. She is agitated, wants to leave the hospital, not interested in further w/u.
With her h/o prior cytopenias and unremarkable BM biopsy in 2013, and normal CBC at recent admission, it's most likely that her current cytopenias are medication related. Would continue to hold Depakote, and minimize new medications if able. Monitor
CBC and for bleeding, infection/fever, etc.
Original Note:
Impression
Impression
Chronic Hepatitis C
Acute on chronic relapsing pancytopenia
Hx bone marrow bx 2013
Leukopenia
Iron deficiency
Acute thrombocytopenia ~08/07/22
Hx IVDA (heroin) w/ chronic methadone use
Opioid withdrawal
Acute delirium/possible dementia with agitation
Bipolar disorder
Prolonged QTc
Urinary tract infection (resolved)
Plan
Plan
08/11 WBC 2.4, Hgb 8.6, Hct 26, PLT 70, ANC 900
Continue neutropenic precautions, bleeding precautions
Monitor CBC with diff daily
Transfuse as needed to maintain Hgb >7.5, PLT >20 (or 50 with active bleeding)
Continue IV iron, folic acid supplement
Acute thrombocytopenia appears to have occurred ~08/07.
Depakote was initiated 08/04 and discontinued 08/06
Continue to hold and monitor PLT recovery
PT/OT, falls precautions
Discharge planning to nursing facility
This is most likely a chronic, multifactorial issue due to acute medications and comorbidities.
We could consider outpatient follow up for further evaluation. Patient refusing.
Patient History
History of Present Illness
Antoinette Bowman is a 62-year-old female previously known to Dr. Bermudez from [place] [facility] 2013. She was seen in consultation due to anemia and leukopenia with drenching night sweats. She underwent full workup and bone marrow biopsy which did not
reveal explanation for cytopenias. Bone marrow report states: slightly hypocellular marrow, slightly increased iron storage, no definite evidence of MDS. It was believed Hepatitis C viral effect was contributing. She was encouraged to see Dr. Emerson
for management of Hep C. Dr. Bermudez had considered trial therapy for possible MDS and potential use of Procrit. She presented to the ER via EMS 07/20/23 with complaints of persistent abdominal pain, nausea, vomiting x24 hours. She was accompanied
by her sister. She states she lives alone and manages her Methadone.
Past-Medical/Surgical History
Chronic Hepatitis C
Hx IVDA
Hypothyroidism
Hypertension
Anemia
Bipolar disorder
Anxiety/depression
Osteoarthritis
Hx nocturnal fecal incontinence
Irritable bowel syndrome
Cholecystectomy 1999
Colonoscopy 2000
Mammogram 2018
Right ovarian cyst
Cachexia
Hx night sweats
Patient Medication
�Medication �Instructions �Recorded �Confirmed �Last Taken �Type
Methadone [facility] 345 mg PO DAILY SUBSTANCE USE 07/20/23 07/20/23 07/18/23 08:00 History
DISORDER
bupropion HCl 300 mg 24 hr tablet, 300 mg PO DAILY Mental 07/20/23 07/20/23 07/18/23 08:00 History
extended release (Wellbutrin XL) Health/Anxiety
dicyclomine 10 mg capsule 20 mg PO QIDPRN PRN spasms 07/20/23 07/20/23 07/18/23 08:00 History
gabapentin 400 mg capsule 800 mg PO TID Mental Health/Anxiety 07/20/23 07/20/23 07/18/23 08:00 History
lansoprazole 30 mg capsule,delayed 30 mg PO DAILY Gastrointestinal 07/20/23 07/20/23 07/18/23 08:00 History
release Issue
levothyroxine 75 mcg tablet 75 mcg PO DAILY Thyroid 07/20/23 07/20/23 07/17/23 History
(Synthroid)
lisinopril 10 mg tablet 10 mg PO DAILY Blood Pressure 07/20/23 07/20/23 07/18/23 History
metoclopramide HCl 10 mg tablet 10 mg PO DAILYPRN PRN gerd 07/20/23 07/20/23 07/17/23 08:00 History
sertraline 100 mg tablet 200 mg PO DAILY Mental 07/20/23 07/20/23 07/18/23 History
Health/Anxiety
Active Medications
Generic Name Dose Route Start Last Admin
Trade Name Freq PRN Reason Stop Dose Admin
Clonidine HCl 0.2 mg 07/25/23 10:00 08/08/23 11:03
Clonidine 0.2 Mg Patch TRANSDERM 08/22/23 09:59 0.2 mg
Q7D NORMA Administration
Folic Acid 0.4 mg 08/07/23 14:45 08/12/23 07:42
Folic Acid 0.4 Mg Tablet PO 09/04/23 14:44 0.4 mg
DAILY NORMA Administration
Hydralazine HCl 10 mg 07/25/23 18:27 07/27/23 23:07
Hydralazine 20 Mg/Ml Vial IV 08/22/23 18:26 10 mg
Q4HPRN PRN Administration
SBP>185 or DBP>105
Ferric Sodium Gluconate 110 mls @ 110 mls/hr 08/08/23 14:00 08/11/23 14:10
Complex 125 mg/ Sodium IV 08/12/23 14:59 110 mls
Chloride DAILY@1400 NORMA Administration
Labetalol HCl 10 mg 07/25/23 10:00 08/12/23 09:30
Labetalol Hcl 5 Mg/1 Ml (20 Mg/4 Ml) Injection IV 08/22/23 09:59 Not Given
Q6H NORMA
Levothyroxine Sodium 75 mcg 07/31/23 06:00 08/12/23 07:38
Levothyroxine 75 Mcg Tablet PO 08/25/23 05:59 75 mcg
DAILY @ 0600 NORMA Administration
Lisinopril 10 mg 07/28/23 10:00 08/12/23 07:38
Lisinopril 10 Mg Tablet PO 08/25/23 09:59 10 mg
DAILY NORMA Administration
Lorazepam 0.5 mg 08/11/23 10:45 08/12/23 06:20
Lorazepam 2 Mg/Ml Vial IV 09/08/23 10:59 0.5 mg
Q12H PRN Administration
agitation
Methadone HCl 200 mg 08/07/23 10:00 08/12/23 07:39
Methadone Oral Liquid (100 Mg/10 Ml) Cup PO 08/21/23 09:59 200 mg
DAILY NORMA Administration
Ondansetron HCl 4 mg 08/02/23 15:22 08/06/23 20:56
Ondansetron 4 Mg/2 Ml Vial IV 08/30/23 15:21 4 mg
Q6HPRN PRN Administration
NAUSEA/VOMITING
Pantoprazole Sodium 40 mg 07/29/23 08:00 08/12/23 07:38
Pantoprazole 40 Mg Delayed Release Tablet PO 08/26/23 07:59 40 mg
DAILY NORMA Administration
Sodium Chloride 0 flush 07/20/23 22:00 08/09/23 03:07
Sodium Chloride 0.9% (Flush) Syringe IV 08/17/23 21:59 2 flush
PER PROTOCOL NORMA Administration
Sodium Chloride 0.25 ml 08/11/23 10:54 08/12/23 06:21
Nss (Pf) 10 Ml Vial For Ativan 0.5 Mg Dose IV 09/08/23 10:53 0.25 ml
[id number] PRN Administration
IV LORAZEPAM DILUTION
Review of Systems
-
History Source: Patient, Transfer Record, Physician, Coordinated Provider and Records
Constitutional: Reports No Symptoms
EENT: Reports No Symptoms
Respiratory: Reports No Symptoms
Cardiac: Reports No Symptoms
GI: Reports No Symptoms
Breast: Reports N/A
: Reports No Symptoms
Musculoskeletal: Reports No Symptoms
Skin: Reports No Symptoms
Neuro: Reports No Symptoms
Endocrine: Reports No Symptoms
Hematologic/Lymphatic: Reports No Symptoms
Allergy / Immunology: Reports No Symptoms
Psych: Reports Anxious
Physical Exam
-
Patient is sitting on the side of the bed. She is impulsive getting out of bed and becoming agitated during conversation. She denies pain, N/V. She is angry and wishes to leave the hospital.
General: Conversant, Appears Chronically Ill and Cachetic
HEENT: Negative Jaundice
Cardiology: S1 and S2
Pulmonary: Clear
GI: Normal Bowel Sounds
Genito-Urinary: Deferred by me
Extremities: Pulses Present
Neurology: Non Focal
Skin: Warm, Dry and Other (pallor)
Psych: Agitated and Anxious
Labs
Lab Results
WBC 2.4 10^3/uL (4.8-10.8) L* 08/12/23 05:58
RBC 2.90 10^6/uL (4.20-5.40) L 08/12/23 05:58
Hgb 8.6 g/dL (12.0-16.0) L 08/12/23 05:58
Hct 26.0 % (37.0-47.0) L 08/12/23 05:58
MCV 89.7 fL (81.0-99.0) 08/12/23 05:58
MCH 29.7 pg (27.0-31.0) 08/12/23 05:58
MCHC 33.1 g/dL (33.0-37.0) 08/12/23 05:58
RDW 13.2 % (11.5-14.5) 08/12/23 05:58
Plt Count 70 10^3/uL (130-400) L 08/12/23 05:58
MPV 10.1 fL (7.4-10.4) 08/12/23 05:58
Abs Immat Gran (auto) 0.0 10^3/uL (0-0.05) 08/12/23 05:58
Absolute Neuts (auto) 0.9 10^3/uL (1.4-6.5) L* 08/12/23 05:58
Absolute Lymphs (auto) 1.0 10^3/uL (1.2-3.4) L 08/12/23 05:58
Absolute Monos (auto) 0.4 10^3/uL (0.1-0.6) 08/12/23 05:58
Absolute Eos (auto) 0.1 10^3/uL (0-0.7) 08/12/23 05:58
Absolute Basos (auto) 0.0 10^3/uL (0-0.2) 08/12/23 05:58
Immature Gran % 1.3 % (0-0.5) H 08/12/23 05:58
Neutrophils % 36.8 % (42.2-75.2) L 08/12/23 05:58
Lymphocytes % 42.7 % (20.5-51.1) 08/12/23 05:58
Monocytes % 15.9 % (1.7-9.3) H 08/12/23 05:58
Eosinophils % 2.5 % (0-6) 08/12/23 05:58
Basophils % 0.8 % (0-2) 08/12/23 05:58
Creatinine 0.7 mg/dL (0.6-1.0) 08/11/23 05:20
Vital Signs
Vital Signs
Temp Pulse Resp BP Pulse Ox
98.3 F 58 18 154/85 95
08/12/23 07:15 08/12/23 09:30 08/12/23 07:15 08/12/23 07:38 08/12/23 07:15
[2023-08-12] MEDS: TYLENOL 650 MG PO ×2 (11:53→20:51)
--- NOTE | 2023-08-12 12:02 | W.PN.UPDATE ---
Update Note
Progress Note Update
Pt seen, chart reviewed. Pt alert, mostly oriented, sitting up in bed, with hair brushed, making good eye contact. Continued difficulties with short-term recall. Pt expressing annoyance at her long hospital stay, feels she could return home,
states she has support of her sister who lives close by, states she pays her bills and lives independently. Pt states she feels different without Wellbutrin XL and with Methadone dose lowered, but she denies feeling depressed. Pt c/o some general
withdrawal feelings in the evening on the lower dose of Methadone. Speech is coherent, thought goal-directed. Pt shows no signs of esperanza or psychosis. Affect/ mood mildly irritable. Ativan is being tapered down, getting once or twice per day 0.5
mg. Depakote was stopped; pt is not on any antidepressant or mood-stabilizer.
Imp: Delirium, etiology unclear, resolving. R/o cognitive impairment
Opioid dependence, on long-term Methadone maintenance tx- dose reduced here
Hx of Bipolar d/o, mood appears stable
Rec: Pt does not appear to need any acute psychiatric intervention, medication, or psych facility
Would continue current Methadone; agree with weaning down Ativan
Will continue to follow
[2023-08-12 12:24] VITALS: BP 122/70
[2023-08-12] MEDS: FERRLECIT 110 MG IV (14:55)
[2023-08-12 15:48] VITALS: BP 102/74
--- NOTE | 2023-08-12 16:46 | W.PN.HOSP.TC ---
Today's Communication/Plan
-
Continue methadone.
Stop lorazepam.
Monitor CBC for worsening of anemia and leukopenia.
Neutropenic precautions for now.
Hematology/oncology input appreciated
Assessment / Plan
Assessment / Plan
Impression:
Presentation with nausea and vomiting.
Prolonged QTc on presentation
Frequent PVCs with bigeminy
Persistent delirium secondary to opiate withdrawal
Opiate use disorder with opiate withdrawal, severe
Non-[place] troponin elevation
Hypokalemia
Hypertensive urgency secondary to opiate withdrawal.
Acute urine retention
UTI, uncomplicated
Anemia of chronic disease
Conditions prior to admission:
Essential hypertension
Hypothyroidism
Opiate use disorder on methadone former heroin addict.
Bipolar disorder
Chronic hepatitis C.
Plan:
Delirium suspect secondary to opiate withdrawal.
Opiate use disorder, severe with opiate withdrawal
Mental status improved and close to baseline, although fluctuating with episodes of confusion.
Agitation resolved
Suspect patient has dementia and will require long-term placement
Currently on methadone at 200 mg daily.
IV lorazepam discontinued on 08/11
Previously on Depakote and Risperdal, had been discontinued.
UTI, uncomplicated
Urinary retention PVR over 800 mL on 07/23
Albert catheter ordered on 07/23 for acute urine retention
Urinalysis not suggestive of UTI at that time.
Voiding trial with Albert catheter removed
On 07/29 remains with urinary symptoms.
Urinalysis suggestive of UTI.
Urine culture with sensitive E. coli
Initiated on ceftriaxone 07/29 to complete 5-day course of therapy through 08/03.
Essential hypertension
Hypertensive urgency in the settings of opiate withdrawal.
Continue metoprolol, lisinopril, IV hydralazine
continue Clonidine patch
Anemia of chronic disease
Pancytopenia, likely related to Depakote. Discontinued.
Hemoglobin trending down to 7.8
No evidence of acute blood loss
Iron level close to normal, slightly decreased
TIBC on the lower side
Normal B12
Suspect anemia of chronic disease and malnutrition
Will follow CBC.
Heme check stool
Consider transfusion if trending consistently below 7
Initiated on IV iron repletion with folate.
Untreated hepatitis C with no evidence of decompensation or cirrhotic changes
Will check abdominal ultrasound to rule out hepatosplenomegaly.
Prolonged QTc
Improved with IV fluids and electrolyte repletion
Continue cardiac monitoring.
Non-KY troponin elevation
Echo noted with preserved biventricular function.
Hypothyroidism on replacement
Anticipated Discharge: 24 - 48 hours
Subjective/Interval History
-
Date of Service: August 12, 2023
Objective Data
-
Labs:
Laboratory Results
08/12/23
05:58
WBC 2.4 L*
Hgb 8.6 L
Hct 26.0 L
Plt Count 70 L
Vital Signs:
Vital Signs
Temp Pulse Resp BP Pulse Ox
98.4 F 59 20 102/74 96
08/12/23 15:48 08/12/23 15:48 08/12/23 15:48 08/12/23 15:48 08/12/23 15:48
I&O
08/11/23 08/12/23 08/13/23
06:59 06:59 06:59
Intake Total 960 / 960 1440 / 1440
Output Total 600 / 600
Balance 360 / 360 1440 / 1440
Physical Exam
-
General: Well Developed and No Apparent Distress
HEENT: Normocephalic, Atraumatic and Moist Mucous Membranes
Respiratory: Clear to Auscultation
Cardiac: Regular Rhythm and S1/S2; Negative Murmur, Rub or Gallop
GI: Soft, Nontender, Nondistended and Normal Bowel Sounds; Negative Organomegaly
Rectal: Deferred by Provider
Musculoskeletal: No Clubbing, No Cyanosis and No Edema
Skin: Negative Rash
Neuro: Nonfocal/Grossly Intact
[2023-08-12 19:36] VITALS: BP 122/73
[2023-08-12 23:42] VITALS: BP 134/71
[2023-08-13 03:21] VITALS: BP 139/79
[2023-08-13] MEDS: TRANDATE IV ×2 (03:45→10:28)
[2023-08-13] MEDS: SYNTHROID 75 MCG PO (05:21)
[2023-08-13 06:00] VITALS: BMI 20.9
[2023-08-13 06:46] LABS: % Basophils 0.8 % (0-2); % Eosinophils 2.7 % (0-6); % Immature Granulocytes 1.1 % (0-0.5); % Lymphocytes 43.9 % (20.5-51.1); % Monocytes 14.4 % (1.7-9.3); % Neutrophils 37.1 % (42.2-75.2); Absolute Eosinophils 0.1 10^3/uL (0-0.7); Absolute Lymphocytes 1.2 10^3/uL (1.2-3.4); Absolute Monocytes 0.4 10^3/uL (0.1-0.6); Hematocrit 26.4 % (37.0-47.0); Hemoglobin 8.9 g/dL (12.0-16.0); Mean Corp Hgb Conc. 33.7 g/dL (33.0-37.0); Mean Corpuscular Hgb 30.5 pg (27.0-31.0); Mean Corpuscular Volume 90.4 fL (81.0-99.0); Mean Platelet Volume 9.8 fL (7.4-10.4); Nucleated Red Blood Cells % 0 %; Platelet Count 86 10^3/uL (130-400); Red Blood Cell Count 2.92 10^6/uL (4.20-5.40); Red Cell Dist. Width 13.4 % (11.5-14.5); White Blood Cell Count 2.6 10^3/uL (4.8-10.8)
[2023-08-13 07:15] VITALS: BP 123/84
[2023-08-13] MEDS: METHADONE 100 MG/10 ML 200 MG PO (07:22)
[2023-08-13] MEDS: PROTONIX 40 MG PO (08:52)
[2023-08-13] MEDS: ZESTRIL 10 MG PO (08:53)
[2023-08-13] MEDS: FOLVITE 0.400000000000000022 MG PO (08:53)
[2023-08-13] MEDS: ZOFRAN 4 MG IV (09:00)
[2023-08-13 11:05] VITALS: BP 103/64
--- NOTE | 2023-08-13 14:10 | W.DS.TRANS ---
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
-
Discharge Instructions:
Discharge Diagnosis/Procedures TME
Opiate use disorder on Methadone
Diet Regular
Instructions:
Stand-Alone Forms:
Changes to Home Medications: Yes
Discharge Medications:
DC Medications w/original date entered in [facility]
lansoprazole 30 mg capsule,delayed release 30 mg PO DAILY Gastrointestinal Issue 07/20/23
levothyroxine 75 mcg tablet (Synthroid) 75 mcg PO DAILY Thyroid 07/20/23
lisinopril 10 mg tablet 10 mg PO DAILY Blood Pressure 07/20/23
clonidine 0.2 mg/24 hr weekly transdermal patch 0.2 mg transdermal Q7D #30 ea 08/13/23
methadone 10 mg/mL oral concentrate (Methadose) 200 mg (20 mL) PO DAILY #1,000 mL 08/13/23
Home Medication Changes
Sertraline, Butyrophenone, Neurontin stopped
Methadone dose reduced
Cloniine added
Pending Results: No
--- NOTE | 2023-08-13 14:13 | CM ---
Patient has been medically cleared for discharge. Therapy has changed recommendation to home with HH PT/OT, VN. Dr. Jauregui and CM spoke with sister with patient present. Sister will have patient stay with her @ [address] [place], [place] [address]
[id number]. [facility] has accepted. Sister prefers HH call her for scheduling assessment ([phone]). Sister will contact [facility] to resume dosages. Sister will transport at approximately 5:00 PM this evening.
--- NOTE | 2023-08-13 14:37 | VNURNOTE ---
Home Health Liaison spoke with patient's sister Nancy at 1430 to discuss [facility] nurse/therapy, visits, schedule and homebound status. Nancy is agreeable and understands that visits at home will be 2-3 x per week to assess and teach medical
management.
[facility] contact information provided. Nancy is aware that [facility] will contact them for start of care in 1-2 days after discharge from .
[facility] referral updated with sisters address in [facility].
[2023-08-13 15:23] VITALS: BP 107/75
[2023-08-13] MEDS: TRANDATE 10 MG IV (15:44)
--- NOTE | 2023-08-13 18:22 | VATNOTE ---
Pt D/C'd, R midline removed by VAT RN. Pressure held and clean dressing applied. 13cm TCL was retrieved. No issues.
== END 2023-08-13 18:35 | disposition home or self-care (01) | DRG 896 ==
LOC: 2 NORTH 18:38
PROVIDERS: Internal Medicine; Nurse Practitioner Primary Care; Physician Assistant Medical; Psychiatry & Neurology Psychiatry; ADMITTING PHYSICIAN Internal Medicine; ATTENDING PHYSICIAN Internal Medicine; CONSULT PHYSICIAN Internal Medicine Hematology & Oncology; EMERGENCY PHYSICIAN Emergency Medicine; FAMILY PHYSICIAN Family Medicine; OTHER PHYSICIAN Internal Medicine Critical Care Medicine; OTHER PHYSICIAN Physician Assistant; OTHER PHYSICIAN Psychiatry & Neurology Psychiatry
DX: F11.23 Opioid dependence with withdrawal (principal); G92.8 Other toxic encephalopathy; I5A Non-ischemic myocardial injury (non-traumatic); I16.1 Hypertensive emergency; N39.0 Urinary tract infection, site not specified; D61.818 Other pancytopenia; E87.6 Hypokalemia; D63.8 Anemia in other chronic diseases classified elsewhere; I10 Essential (primary) hypertension; E03.9 Hypothyroidism, unspecified; F31.9 Bipolar disorder, unspecified; B18.2 Chronic viral hepatitis C; B96.20 Unspecified Escherichia coli [E. coli] as the cause of diseases classified elsewhere
CPT/HCPCS: 70450; 74018; 76700; 80048; 80053; 80164; 80306; 80307; 81003; 81015; 82077; 82248; 82607; 82728; 82746; 82962; 83036; 83540; 83550; 83690; 83735; 84443; 84484; 85025; 85027; 87070; 87077; 87086; 87186; 93005; 93306; 96361; 96372; 96374; 96376; 97116; 97163; 97167; 97530; 97535; 99285; J2358; J2916

== ENCOUNTER 2023-10-12 06:26 | Emergency (ER) | payer OTHER, SELFPAY ==
[2023-10-12 06:51] VITALS: BP 210/120; BP 240/120
[2023-10-12 06:56] VITALS: BP 220/136
[2023-10-12 07:00] VITALS: BP 235/127
[2023-10-12] MEDS: NSS 1000 IV (07:05)
[2023-10-12 07:13] LABS: % Basophils 0.4 % (0-2); % Eosinophils 0.4 % (0-6); % Immature Granulocytes 0.4 % (0-0.5); % Lymphocytes 14.2 % (20.5-51.1); % Monocytes 6.9 % (1.7-9.3); % Neutrophils 77.7 % (42.2-75.2); Absolute Monocytes 0.5 10^3/uL (0.1-0.6); Absolute Neutrophils 5.4 10^3/uL (1.4-6.5); Hematocrit 38.8 % (37.0-47.0); Hemoglobin 13.8 g/dL (12.0-16.0); Mean Corp Hgb Conc. 35.6 g/dL (33.0-37.0); Mean Corpuscular Hgb 29.7 pg (27.0-31.0); Mean Corpuscular Volume 83.6 fL (81.0-99.0); Mean Platelet Volume 10.2 fL (7.4-10.4); Nucleated Red Blood Cells % 0 %; Platelet Count 198 10^3/uL (130-400); Red Blood Cell Count 4.64 10^6/uL (4.20-5.40); Red Cell Dist. Width 11.5 % (11.5-14.5)
[2023-10-12 07:20] LABS: ALT (SGPT) 15 U/L (0-35); AST (SGOT) 32 U/L (14-36); Albumin 4.6 g/dl (3.5-5.0); Alkaline Phosphatase 84 U/L (38-126); Blood Urea Nitrogen 12 mg/dl (7-17); Calcium 9.9 mg/dl (8.4-10.2); Carbon Dioxide 29 mmol/L (22-30); Chloride 99 mmol/L (98-107); Glucose 124 mg/dl (70-99); Lipase 132 U/L (23-300); Potassium 3.4 mmol/L (3.5-5.1); Sodium 139 mmol/L (135-145); Total Bilirubin 0.7 mg/dl (0.2-1.3); Total Protein 7.9 g/dl (6.3-8.2); eGFR > 60.00
--- NOTE | 2023-10-12 07:23 | ED.GENMED ---
History of Present Illness
General
Chief Complaint: Blood Pressure Problem
Source: patient
Exam Limitations: none
Time Seen by Provider: 10/12/23 06:52
Nursing documentation reviewed up to this point in time: agreed with
History of Present Illness
History of Present Illness:
The patient is a 63-year-old female with a past medical history of hypothyroidism, hypertension, and substance abuse, reportedly taking methadone, who presents with several months of continuous nausea and abdominal pain. Patient arrives very
anxious. She reports severe nausea and upper abdominal pain. She reports had mild diarrhea this morning. She denies fever. She reports she last had methadone yesterday. She reports she has not had any other meds due to severe nausea. Patient
denies chest pain or shortness of breath. She reports a mild headache. She denies weakness, numbness, and vision changes. Patient reports that she does not think her nausea is opioid withdrawal.
Past History
Past History
ED Past Medical History: HTN, Hypothyroidism, Psychiatric (anxiety) and Other (urinary incontinence)
ED Past Surgical History: Cholecystectomy; Negative Cardiac
Social History
Tobacco: Non-smoker
Alcohol: None
Drug: Former user
Personal: Single
Living: alone (family near by that can help)
Employment: Employed
Family History
Family History: Other (Noncontributory)
Review of Systems
Review of Systems
Allergies reviewed?: Yes
All Other Systems: ROS reviewed and negative except as documented in HPI and ROS
Constitutional: Reports fatigue
EENT: Reports no symptoms
Respiratory: Reports no symptoms
Cardiac: Reports no symptoms
ABD/GI: Reports abdominal pain, nausea, diarrhea and anorexia
: Reports no symptoms
Musculoskeletal: Reports no symptoms
Skin: Reports no symptoms
Neurological: Reports headache
Endocrine: Reports no symptoms
Hematologic/Lymphatic: Reports no symptoms
Psychiatric: Reports anxiety
Phy Exam
Physical Exam
Physical Exam:
Physical Exam
General: Patient appears anxious. Is crying out. Thin. Chronically ill-appearing. Dystonic mouth movements
Neck: supple.
Heart: s1/s2 regular rate and rhythm, no murmur. equal radial pulses.
Lungs: no acute respiratory distress. clear bilaterally
Abdomen: Soft throughout. Hyperactive bowel sounds. No rebound or guarding. Nondistended. Mid and epigastric tenderness. No pulsatile mass
Neuro: alert and oriented. no focal neurological deficits
Skin: no rash
Psychiatric: well kept. interactive and cooperative
Extremities: no edema.
Course
Orders/Labs/Results
Orders:
Orders
10/12/23 06:53
0.9% Sodium Chloride 1000 ml [Nss] 1,000 ml IV BOLUS
10/12/23 07:03
Alcohol Urgent
Complete Blood Count/With Diff Urgent
Comprehensive Metabolic Panel Urgent
Lipase Urgent
10/12/23 07:08
Electrocardiogram (*1) Urgent
Reason for Study: Abdominal Pain
EKG- Treatment ONCE
10/12/23 07:09
Add On- LAB Urgent
Tests Added?: alcohol
10/12/23 07:39
Ondansetron Injectable [Zofran] 4 mg IV NOW STA
10/12/23 07:40
Clonidine [Catapres] 0.2 mg PO NOW STA
Diphenhydramine [Benadryl] 25 mg IV NOW STA
Metoclopramide [Reglan] 10 mg IV NOW STA
10/12/23 07:54
Methadone HCl [Methadone 100 mg/10 ml] 200 mg PO NOW STA
10/12/23 09:20
Urinalysis Reflex To Culture Urgent
Date Specimen was Collected: 10/12/23
Time Specimen was Collected: 09:14
Urine Drug Abuse Screen Urgent
Date Specimen was Collected: 10/12/23
Time Specimen was Collected: 09:14
Abnormal Lab Results
10/12/23
07:03
Absolute Lymphs (auto) 1.0 L 10^3/uL
(1.2-3.4)
Neutrophils % 77.7 H %
(42.2-75.2)
Lymphocytes % 14.2 L %
(20.5-51.1)
Potassium 3.4 L mmol/L
(3.5-5.1)
Glucose 124 H mg/dl
(70-99)
10/12/23 07:03
10/12/23 07:03
Vital Signs
Initial and Last Documented VS:
Initial Vital Signs
Temp Pulse Resp Pulse Ox
98.9 F 88 20 97
10/12/23 06:33 10/12/23 06:33 10/12/23 06:33 10/12/23 06:33
Last Documented Vital Signs
Temp Pulse Resp BP Pulse Ox
98.9 F 74 18 195/111 95
10/12/23 06:33 10/12/23 09:24 10/12/23 09:24 10/12/23 09:00 10/12/23 09:24
MDM/Problems Addressed
Differential Diagnosis Includes:
Opioid withdrawal, small bowel obstruction, acute gastritis
MDM/Problems Addressed:
Patient presents with chronic severe nausea and abdominal pain
Chronic conditions affecting care:
Chronic opioid use
Acute Exacerbation and/or Progression of Chronic Illness:
Patient may have acute opioid withdrawal.
Patient is acutely hypertensive due to noncompliance with medication
Acute Exacerbation and/or Progression of Chronic Illness: HTN
*Pulse Oximetry
Patient hypoxic: no
*EKG
Interpreted by ED Provider?: Yes
Interpretation: abnormal
Comparison EKG: changes noted
Rate: normal
Rhythm: sinus
[place]: normal axis
QRS Pattern: normal QRS
Ischemia: other (Diffuse T wave flattening)
*Hospital Insurance Representative Interpretation
Rate: normal
Interpretation: normal
Rhythm: sinus
*Critical Care Note
Total Time (30-74mins, 75-104mins- exclusive of procedures): Not Applicable
Data Reviewed
Review of Other/Old Records Reveals: Discharge Summary (Discharge summary reviewed from July 2023 when patient was admitted for hypokalemia and delirium related to opioid withdrawal)
Source: patient
Patient Management
Social determinants of health affecting care: Living situation (Patient lives alone)
Escalation/DeEscalation of care consider admission/obs:
9:30 am Patient states her nausea is much better and she is up walking around the room. Her neurological exam is normal. She denies chest pain or shortness of breath. However, I am very concerned because despite giving her clonidine, her blood
pressure is still extremely elevated at 220/120. In addition, she does have diffuse T waves on her EKG which concerns me. I told patient she should be admitted to the hospital so we can monitor her blood pressure. Patient adamantly does not want
to stay. Patient is alert and oriented x 3. She is steady on her feet. She reports she is due to see your doctor tomorrow I will make sure to follow-up. Patient understands that she is at increased risk of stroke and heart attack given this
[id number] blood pressure.
ED Attending Note
-
Portions of this chart may have been created with voice recognition software.� Occasional wrong word or��sound alike� substitutions may have occurred due to the inherent limitations of voice recognition software.
Discharge Plan
Departure
Patient Disposition: Against Medical Advice
Date of Disposition: 10/12/23
Time of Disposition: 09:32
Patient with high blood pressure during this ER visit?: Yes
Condition: Fair
Covid-19: Not Applicable
Discharge Problem:
acute nausea, Severe uncontrolled hypertension
Instructions: High blood pressure in adults, Nausea and vomiting in adults
Prescriptions:
New
ondansetron 4 mg tablet,disintegrating
4 mg PO Q8H PRN (Reason: nausea and vomiting) Qty: 14 0RF
No Action
levothyroxine [Synthroid] 75 mcg Tablet
75 mcg PO DAILY
lisinopril 10 mg Tablet
10 mg PO DAILY
lansoprazole 30 mg capsule,delayed release(DR/EC)
30 mg PO DAILY
clonidine 0.2 mg/24 hr Patch Weekly
0.2 mg transdermal Q7D Qty: 30 0RF
methadone [Methadose] 10 mg/mL Concentrate
200 mg PO DAILY Qty: 1000 0RF
Referrals:
Aguila Mckeon DO [Family Provider] -
Activity Restrictions/Additional Instructions:
It is extremely important that you follow-up with your doctor tomorrow to have your blood pressure rechecked. It is extremely important that you take all your medications as prescribed. We recommended that you stay in the hospital to have your
blood pressure monitored and you refused. It is extremely important if you return with any severe headache, vision changes, weakness, numbness, chest pain and shortness of breath.
Interventions
Interventions:
*Risk Screen - Suicide Last Done: 10/12/23 06:33
*General Assessment Last Done: 10/12/23 06:33
*Neglect/Abuse Screening Last Done: 10/12/23 06:33
ED- Fall Risk Assessment Last Done: 10/12/23 06:33
*ED COVID-19 Vaccine History Last Done: 10/12/23 06:33
*Nursing Disposition Last Done: 10/12/23 09:40
[id number] Assessment Last Done: 10/12/23 07:06
ED- Cardiac Assessment Last Done: 10/12/23 07:06
ED- Neurological Assessment Last Done: 10/12/23 07:06
ED- Pulmonary Assessment Last Done: 10/12/23 07:06
Discharge Date and Time
Discharge Date/Time: 10/12/23 09:30
Print Language: [id number]
[2023-10-12 07:34] LABS: Alcohol None Detected
[2023-10-12] MEDS: BENADRYL 25 MG IV (07:44)
[2023-10-12] MEDS: CATAPRES 0.200000000000000011 MG PO (07:44)
[2023-10-12] MEDS: REGLAN 10 MG IV (07:44)
[2023-10-12 08:00] VITALS: BP 180/101
[2023-10-12] MEDS: METHADONE 100 MG/10 ML 200 MG PO (08:13)
[2023-10-12 09:00] VITALS: BP 195/111
[2023-10-12 10:10] LABS: Urine Albumin 1+ (Neg - Trace); Urine Bilirubin Negative (Negative); Urine Character Clear (Clear); Urine Color Yellow; Urine Glucose Negative (Negative); Urine Ketone 1+ (Negative); Urine Leukocyte Negative (Negative); Urine Nitrite Negative (Negative); Urine Occult Blood Negative (Negative); Urine Specific Gravity 1.015 (<1.030); Urine Urobilinogen Negative (Neg - 1+)
[2023-10-12 10:32] LABS: Marijuana Positive (Negative); Methadone Positive (Negative)
[2023-10-12 10:33] LABS: Amphetamines Negative (Negative); Barbiturates Negative (Negative); Benzodiazepines Negative (Negative); Buprenorphine Negative (Negative); Cocaine Negative (Negative); Methamphetamines Negative (Negative); Opiates Negative (Negative); Phencyclidine Negative (Negative); Tricyclic Antidepressants Negative (Negative)
[2023-10-12 10:37] LABS: Urine Bacteria Few (Negative); Urine Red Blood Cell 0-2 /HPF (0-2); Urine White Cell 0-2 /HPF (0-5)
[2023-10-12 11:09] LABS: Fentanyl, Urine Negative (Negative)
== END 2023-10-12 09:30 | disposition left against medical advice (07) ==
LOC: EMR 06:26
PROVIDERS: EMERGENCY PHYSICIAN Emergency Medicine; FAMILY PHYSICIAN Family Medicine
DX: R11.0 Nausea (principal); R10.10 Upper abdominal pain, unspecified; R19.7 Diarrhea, unspecified; R51.9 Headache, unspecified; Z53.29 Procedure and treatment not carried out because of patient's decision for other reasons; I10 Essential (primary) hypertension; E03.9 Hypothyroidism, unspecified; F41.9 Anxiety disorder, unspecified; Z91.148 Patient's other noncompliance with medication regimen for other reason; F19.11 Other psychoactive substance abuse, in remission; Z79.891 Long term (current) use of opiate analgesic; Z90.49 Acquired absence of other specified parts of digestive tract
CPT/HCPCS: 99284; 96374; 96375; 80053; 80306; 80307; 81003; 81015; 82077; 83690; 85025; 93005